=== PATIENT | female | born 1995 | race Caucasian/White ===

== ENCOUNTER 2019-05-08 13:10 | Emergency (ER) | payer MEDICAID, SELFPAY ==
--- NOTE | ~2019-05-08 | XR_ITS ---
EXAMINATION: XR lumbar spine 2-3V DATE: 05/08/2019 14:39 INDICATION: Low back pain TECHNIQUE: Anteroposterior and lateral views of the lumbar spine, and cone-down lateral view of the l umbosacral junction were obtained. COMPARISON: 12/13/2012 FINDINGS: There is mild thoracolumbar dextrocurvature. No fracture, dislocation, or subluxation is id entified. The vertebral body heights and intervertebral disc spaces are normal. Cholecystectomy clips are noted in the right upper quadrant. The bowel gas pattern is normal. IMPRESSION: 1. No acute abnormality of the lumbar spine. Reviewed, dictated and finalized at location B.
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
[2019-05-08 13:08] VITALS: BP 120/91; PULSE 102; RESP 18; TEMP 36.4; O2SAT 100
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
[2019-05-08] MEDS: IBUPROFEN 600 MG TABLET PO (13:59)
[2019-05-08 14:34] VITALS: BP 116/80; PULSE 73; RESP 16; O2SAT 100
[2019-05-08 15:51] VITALS: BP 119/75; PULSE 71; RESP 16; O2SAT 99
== END 2019-05-08 15:50 | disposition home or self-care (01) ==
PROVIDERS: Emergency Provider Emergency Medicine; PCP Family Medicine Sports Medicine
DX: S39.92XA Unspecified injury of lower back, initial encounter (principal); S19.9XXA Unspecified injury of neck, initial encounter; V43.52XA Car driver injured in collision with other type car in traffic accident, initial encounter
CPT/HCPCS: 72100; 72125; 99284; A9270

== ENCOUNTER 2019-06-30 15:41 | Emergency (ER) | payer OTHER, SELFPAY ==
--- NOTE | ~2019-06-30 | XR_ITS ---
EXAMINATION: XR wrist LT min 3V DATE: 06/30/2019 15:59 INDICATION: Left wrist pain TECHNIQUE: Posteroanterior, ulnar deviation, oblique, and lateral views of the left wrist were obtain ed. COMPARISON: None available FINDINGS: There is no fracture, dislocation, or subluxation. The bones, soft tissues, and joint space s are normal. IMPRESSION: 1. No acute osseous abnormality. Reviewed, dictated and finalized at location A.
--- NOTE | ~2019-06-30 | XR_ITS ---
EXAMINATION: XR hand LT min 3V DATE: 06/30/2019 15:59 INDICATION: Left hand pain TECHNIQUE: Posteroanterior, lateral, and oblique views of the left hand were obtained. COMPARISON: None. FINDINGS: There is no fracture, dislocation, or subluxation. The bones, soft tissues, and joint space s are normal. IMPRESSION: 1. No acute osseous abnormality. Reviewed, dictated and finalized at location A.
[2019-06-30 15:44] VITALS: BP 127/79; PULSE 123; RESP 16; TEMP 36.8; O2SAT 100
--- NOTE | 2019-06-30 16:04 | ED.GENADULT ---
HPI - General Adult General Chief complaint: Extremity Injury, Upper <LUCY Hickman Last Filed: 06/30/19 16:13> Stated complaint: Left Hand Injury <LUCY Hickman Last Filed: 06/30/19 16:13> Time Seen by Provider: 06/30/19 15:43 <LUCY Hickman Last Filed: 06/30/19 16:13> Source: patient <LUCY Hickman Last Filed: 06/30/19 16:13> Mode of arrival: ambulatory <LUCY Hickman Last Filed: 06/30/19 16:13> Limitations: no limitations <LUCY Hickman Last Filed: 06/30/19 16:13> History of Present Illness HPI narrative: Patient is a 24-year-old female who presents with left hand pain wrist pain after punching an object just prior to arrival patient became frustrated punched a wall since has had bruising aching pain along the ulnar aspect of the left hand wrist worse with activity movement is not anything for pain presents per private vehicle. <LUCY Hickman Last Filed: 06/30/19 16:13> Related Data Home medications: Home Medications Medication Instructions Recorded Confirmed No Home Medications 05/08/19 05/08/19 <LUCY Hickman Last Filed: 06/30/19 16:13> Allergies/adverse reactions: Allergies Allergy/AdvReac Type Severity Reaction Status Date / Time azithromycin Allergy Severe N/V; HIVES Verified 06/30/19 15:49 lavender (Lavandula Allergy Severe HIVES Verified 06/30/19 15:49 angustifolia) oxycodone Allergy Severe HIVES Verified 06/30/19 15:49 pumpkin Allergy Severe HIVES Verified 06/30/19 15:49 benzocaine AdvReac Mild VAGINAL Verified 06/30/19 15:49 ITCHING/REDNESS mineral oil AdvReac Mild VAGINAL Verified 06/30/19 15:49 ITCHING/REDNESS resorcinol AdvReac Mild VAGINAL Verified 06/30/19 15:49 REDNESS/ITCHING trazodone AdvReac Unknown GROSS Verified 06/30/19 15:49 DIAL SOAP Allergy Severe HIVES. Uncoded 05/08/19 13:14 STARCH AdvReac Mild VAGINAL Uncoded 05/08/19 13:14 ITCHING/REDNESS VITAMIN E ACETATE AdvReac Mild VAGINAL Uncoded 08/07/18 20:31 REDNESS/ITCHING VITAMINS A AND D AdvReac Mild VAGINAL Uncoded 08/07/18 20:31 ITCHING/REDNESS <Reji Velasquez PA-C - Last Filed: 06/30/19 16:13> Review of Systems Review of Systems: Narrative: CONSTITUTIONAL: Denies chills, or sweats. SKIN: Positive for bruising and swelling MUSCULOSKELETAL: Positive for left hand pain and bruising NEUROLOGIC: Denies numbness tingling PSYCHIATRIC: Denies anxiety or depression. <Reji Velasquez PA-C - Last Filed: 06/30/19 16:13> PMFSH Past Medical History Medical History: Medical History Abnormal uterine bleeding Anxiety History of ovarian cyst Scoliosis <Reji Velasquez PA-C - Last Filed: 06/30/19 16:13> Surgical History Surgical History: Surgical History History of cholecystectomy History of hysterectomy History of removal of ovarian cyst History of tonsillectomy and adenoidectomy Hx of toe surgery Rt great toe. <Reji Velasquez PA-C - Last Filed: 06/30/19 16:13> Social History Social History: Social History Smoking status: Current every day smoker Tobacco type: e-cigarettes/vaping <Reji Velasquez PA-C - Last Filed: 06/30/19 16:13> Exam Narrative: Exam Narrative: GENERAL: Well-appearing, well-nourished, and in no acute distress. HEAD: Normocephalic, atraumatic. EYES: PERRLA and EOMI. ENT: Nares clear, no rhinorrhea or epistaxis. Mucous membranes moist. EXTREMITIES: Bruising swelling and tenderness along the ulnar aspect of the left hand from the MCP joint to the proximal metacarpal with tenderness of the wrist with no deformity noted SKIN: Warm, dry, no rash. NEURO: No focal deficits. Alert and oriented x3. Neurovascularly intact. Capillary refill less than 2
[2019-06-30] MEDS: ACETAMINOPHEN 325 MG TABLET 650 MG PO (16:25)
== END 2019-06-30 16:30 | disposition home or self-care (01) ==
PROVIDERS: Emergency Provider Emergency Medicine; PCP Family Medicine Sports Medicine
DX: S60.222A Contusion of left hand, initial encounter (principal); W22.09XA Striking against other stationary object, initial encounter
CPT/HCPCS: 73110; 73130; 99283; A9270

== ENCOUNTER 2019-08-28 12:16 | Emergency (ER) | payer OTHER, SELFPAY ==
--- NOTE | ~2019-08-28 | XR_ITS ---
EXAMINATION: XR knee RT min 4V DATE: 08/28/2019 12:46 INDICATION: Fall with right knee pain and patellar bruising TECHNIQUE: Anteroposterior, 2 oblique and crosstable lateral views of the right knee were obtained COMPARISON: None. FINDINGS: Alignment is normal. No fracture. No joint effusion/layering lipohemarthrosis. Soft tissues are unrem arkable. IMPRESSION: 1. Negative right knee radiographs. Reviewed, dictated and finalized at location A.
[2019-08-28 12:24] VITALS: BP 115/63; PULSE 110; RESP 17; TEMP 37.1; O2SAT 99
--- NOTE | 2019-08-28 13:11 | ED.LOWEXIN ---
HPI - Extremity Injury (Lower) General Chief Complaint: Extremity Injury, Lower Stated Complaint: knee injury Time Seen by Provider: 08/28/19 12:52 Source: patient Mode of arrival: wheelchair Limitations: no limitations History of Present Illness HPI Narrative: This is a 34-year-old female that presents to the emergency department for right knee pain after an injury yesterday. Reports that she was trying to climb on a counter and slipped and her right kneecap hit the countertop. Reports since she has had pain and bruising to the kneecap. Reports the pain makes it difficult for her to ambulate. She has taken [id number] pain medicine with little relief. Denies hitting her head, loss of consciousness, other injuries, decreased range of motion or numbness. Related Data Allergies Allergy/AdvReac Type Severity Reaction Status Date / Time azithromycin Allergy Severe N/V; HIVES Verified 06/30/19 15:49 lavender (Lavandula Allergy Severe HIVES Verified 06/30/19 15:49 angustifolia) oxycodone Allergy Severe HIVES Verified 06/30/19 15:49 pumpkin Allergy Severe HIVES Verified 06/30/19 15:49 benzocaine AdvReac Mild VAGINAL Verified 06/30/19 15:49 ITCHING/REDNESS mineral oil AdvReac Mild VAGINAL Verified 06/30/19 15:49 ITCHING/REDNESS resorcinol AdvReac Mild VAGINAL Verified 06/30/19 15:49 REDNESS/ITCHING trazodone AdvReac Unknown GROSS Verified 06/30/19 15:49 DIAL SOAP Allergy Severe HIVES. Uncoded 05/08/19 13:14 STARCH AdvReac Mild VAGINAL Uncoded 05/08/19 13:14 ITCHING/REDNESS VITAMIN E ACETATE AdvReac Mild VAGINAL Uncoded 08/07/18 20:31 REDNESS/ITCHING VITAMINS A AND D AdvReac Mild VAGINAL Uncoded 08/07/18 20:31 ITCHING/REDNESS Review of Systems Review of Systems: Narrative: CONSTITUTIONAL: Denies fever MUSCULOSKELETAL: Reports joint pain, and myalgia. NEUROLOGIC: Denies numbness, or weakness. All systems reviewed & are unremarkable except as noted in HPI and below PMFSH Social History Social History Smoking status: Current every day smoker Tobacco type: e-cigarettes/vaping Gender identity (if verbalized by the patient): Female Exam Narrative: Exam Narrative: GENERAL: Well-appearing, well-nourished, and in no acute distress. HEAD: Normocephalic, atraumatic. EYES: EOMI. EXTREMITIES: Normal range of motion. No edema or obvious deformity. Small bruise over the right patella. Normal sensation. Normal DP pulses SKIN: Warm, dry, no rash. NEURO: No focal deficits. Alert and oriented x3. PSYCH: Normal mood and affect Course Vital Signs Vital signs: Vital Signs Temperature 98.8 F 08/28/19 12:24 Pulse Rate 110 H 08/28/19 12:24 Respiratory Rate 17 08/28/19 12:24 Blood Pressure 115/63 08/28/19 12:24 Pulse Oximetry 99 08/28/19 12:24 Temperature 98.8 F 08/28/19 12:24 Pulse Rate 110 H 08/28/19 12:24 Respiratory Rate 17 08/28/19 12:24 Blood Pressure 115/63 08/28/19 12:24 Pulse Oximetry 99 08/28/19 12:24 MDM - Extremity Injury (Lower) MDM Narrative Medical decision making narrative: Patient presents to the emergency department for right knee pain after an injury yesterday. Right knee x-rays without acute findings. Patient was instructed to rest, ice and take pain medication as needed. She is to follow-up with primary care doctor. She was given warnings to return to the ER Imaging Data Radiologist's impression: ITS Impressions Knee X-Ray 08/28/19 12:46 IMPRESSION: 1. Negative right knee radiographs. Critical Care Time Critical Care Time Critical Care Time: No Discharge Plan Discharge Clinical Impression: Acute pain of right knee Patient Disposition: Home, Self-Care Condition: Stable Instructions: Knee Pain (ED) Additional Instructions: Return to the emergency department if you experience fever, redness and swelling of your leg, or any other symptoms that
[2019-08-28 13:38] VITALS: BP 132/80; PULSE 80; RESP 18; TEMP 36.7; O2SAT 98
== END 2019-08-28 13:39 | disposition home or self-care (01) ==
PROVIDERS: Emergency Provider Emergency Medicine; PCP Family Medicine Sports Medicine
DX: M25.561 Pain in right knee (principal)
CPT/HCPCS: 73564; 99283

== ENCOUNTER 2019-12-17 17:33 | Emergency (ER) | payer OTHER, SELFPAY ==
--- NOTE | ~2019-12-17 | XR_ITS ---
EXAMINATION: XR chest 1V portable 12/17/2019 18:05 INDICATION: Shortness of breath and chest pressure. PROCEDURE: AP portable chest COMPARISON: Comparison to multiple prior studies sequentially, with oldest reviewed study dated 09/05. FINDINGS: The lungs are clear. Lung apices are excluded limiting evaluation for subtle pneumothorax. The lungs are hyperinflated which is consistent with, but not diagnostic of chronic obstructive pulmo nary disease. The cardiomediastinal silhouette is within normal limits. There are no pleural effusi ons. There is no pneumothorax suspected. IMPRESSION: 1: NO ACUTE CARDIOPULMONARY DISEASE. Reviewed, dictated and finalized at location A. O MANAGER
--- NOTE | 2019-12-17 17:47 | ECG_ITS ---
Measurements Intervals [place] Rate: 59 P: 62 VT: 122 QRS: 21 QRSD: 89 T: 77 QT: 416 QTc: 413 Interpretive Statements SINUS BRADYCARDIA BASELINE ARTIFACT- I, II, III, AVR, AVL,A VF BORDERLINE ECG Electronically Signed On 12-18-2019 10:21:33 CALL CENTER RN by aDsh Manzano D.O.
[2019-12-17 17:50] VITALS: BP 116/85; PULSE 58; RESP 14; TEMP 36.9; O2SAT 100
[2019-12-17 17:53] VITALS: PULSE 58; O2SAT 100
--- NOTE | 2019-12-17 18:09 | ED.GENADULT ---
HPI - General Adult General Chief complaint: Shortness of Breath/Dyspnea Stated complaint: sob/headache, COVID + Time Seen by Provider: 12/17/19 17:39 Source: patient Mode of arrival: ambulatory Limitations: no limitations History of Present Illness HPI narrative: Patient is a 24-year-old female who presents with positive Covid has been sick for the last several days multiple family members who are also sick patient notes headache and congestion rhinorrhea notes minimally productive cough that began today denies vomiting diarrhea has not taken anything for her symptoms and on arrival is in the room in no distress Related Data Allergies Allergy/AdvReac Type Severity Reaction Status Date / Time azithromycin Allergy Severe N/V; HIVES Verified 12/17/19 17:50 lavender (Lavandula Allergy Severe HIVES Verified 12/17/19 17:50 angustifolia) oxycodone Allergy Severe HIVES Verified 12/17/19 17:50 pumpkin Allergy Severe HIVES Verified 12/17/19 17:50 benzocaine AdvReac Mild VAGINAL Verified 12/17/19 17:50 ITCHING/REDNESS mineral oil AdvReac Mild VAGINAL Verified 12/17/19 17:50 ITCHING/REDNESS resorcinol AdvReac Mild VAGINAL Verified 12/17/19 17:50 REDNESS/ITCHING trazodone AdvReac Unknown GROSS Verified 12/17/19 17:50 DIAL SOAP Allergy Severe HIVES. Uncoded 05/08/19 13:14 STARCH AdvReac Mild VAGINAL Uncoded 05/08/19 13:14 ITCHING/REDNESS VITAMIN E ACETATE AdvReac Mild VAGINAL Uncoded 08/07/18 20:31 REDNESS/ITCHING VITAMINS A AND D AdvReac Mild VAGINAL Uncoded 08/07/18 20:31 ITCHING/REDNESS Review of Systems Review of Systems: All systems reviewed & are unremarkable except as noted in HPI and below PMFSH Past Medical History Medical History (Updated 12/17/19 @ 18:35 by Reji Velasquez PA-C) Abnormal uterine bleeding Anxiety History of ovarian cyst Scoliosis Surgical History Surgical History History of cholecystectomy History of hysterectomy History of removal of ovarian cyst History of tonsillectomy and adenoidectomy Hx of toe surgery Rt great toe. Social History Social History Smoking status: Current every day smoker Tobacco type: e-cigarettes/vaping Gender identity (if verbalized by the patient): Female Exam Narrative: Exam Narrative: GENERAL: Ill-appearing, well-nourished, and in no acute distress. HEAD: Normocephalic, atraumatic. EYES: PERRLA and EOMI. ENT: Nares clear, no rhinorrhea or epistaxis. Mucous membranes moist. NECK: Supple. No adenopathy or masses. CHEST: Clear to auscultation. No respiratory distress. No wheezes rales or rhonchi HEART: Regular rate and rhythm. No murmur heard. SKIN: Warm, dry, no rash. NEURO: No focal deficits. Alert and oriented x3. PSYCH: Normal mood and affect. Course Course Emergency Course: Patient in the room in no distress normal vital signs will be discharged home no pneumonia treated symptomatically advised to follow with primary care given reasons to return Vital Signs Vital signs: Vital Signs Temperature 98.5 F 12/17/19 17:50 Pulse Rate 58 L 12/17/19 17:50 Respiratory Rate 14 12/17/19 17:50 Blood Pressure 116/85 12/17/19 17:50 Pulse Oximetry 100 12/17/19 17:50 Temperature 98.5 F 12/17/19 17:50 Pulse Rate 58 L 12/17/19 17:53 Respiratory Rate 14 12/17/19 17:50 Blood Pressure 116/85 12/17/19 17:50 Pulse Oximetry 100 12/17/19 17:53 Medical Decision Making MDM Narrative Medical decision making narrative: Patient with COVID-19 in the room no distress normal vital signs no pneumonia felt appropriate for discharge home Vital Signs Vital Signs: Vital Signs Temperature 98.5 F 12/17/19 17:50 Pulse Rate 58 L 12/17/19 17:50 Respiratory Rate 14 12/17/19 17:50 Blood Pressure 116/85 12/17/19 17:50 Pulse Oximetry 100 12/17/19 17:50 Temperature 98.5 F 12/17/19 17:5
[2019-12-17 19:12] VITALS: BP 111/65; PULSE 58; RESP 19; O2SAT 100
== END 2019-12-17 19:32 | disposition home or self-care (01) ==
PROVIDERS: Emergency Provider Emergency Medicine; PCP Family Medicine Sports Medicine
DX: U07.1 COVID-19 (principal); F17.290 Nicotine dependence, other tobacco product, uncomplicated; R00.1 Bradycardia, unspecified
CPT/HCPCS: 71045; 93005; 99283

== ENCOUNTER 2020-04-07 10:06 | Emergency (ER) | payer OTHER, SELFPAY ==
--- NOTE | 2020-04-07 10:19 | ED.FEMALEGU ---
HPI - Female Genitourinary General Chief complaint: Urogenital-Female Stated complaint: UTI Time Seen by Provider: 04/07/20 10:28 Source: patient and RN notes reviewed Mode of arrival: ambulatory Limitations: no limitations History of Present Illness HPI Narrative: 24-year-old female presents with concern for possible urinary tract infection. Reports 1 day history of burning with urination, urine urgency. Reports right hip and low back pain. Denies known injury. Denies abdominal pain, nausea, vomiting, fever, hematuria, urine frequency. Reports vaginal irritation, reports recently started using scented toilet paper. Denies abnormal vaginal discharge or bleeding, pain with sex. Reports history of urinary tract infections MD elicited complaint: UTI Related Data Allergies Allergy/AdvReac Type Severity Reaction Status Date / Time azithromycin Allergy Severe N/V; HIVES Verified 12/17/19 17:50 lavender (Lavandula Allergy Severe HIVES Verified 12/17/19 17:50 angustifolia) oxycodone Allergy Severe HIVES Verified 12/17/19 17:50 pumpkin Allergy Severe HIVES Verified 12/17/19 17:50 benzocaine AdvReac Mild VAGINAL Verified 12/17/19 17:50 ITCHING/REDNESS mineral oil AdvReac Mild VAGINAL Verified 12/17/19 17:50 ITCHING/REDNESS resorcinol AdvReac Mild VAGINAL Verified 12/17/19 17:50 REDNESS/ITCHING trazodone AdvReac Unknown GROSS Verified 12/17/19 17:50 DIAL SOAP Allergy Severe HIVES. Uncoded 05/08/19 13:14 STARCH AdvReac Mild VAGINAL Uncoded 05/08/19 13:14 ITCHING/REDNESS VITAMIN E ACETATE AdvReac Mild VAGINAL Uncoded 08/07/18 20:31 REDNESS/ITCHING VITAMINS A AND D AdvReac Mild VAGINAL Uncoded 08/07/18 20:31 ITCHING/REDNESS Review of Systems Review of Systems: Narrative: CONSTITUTIONAL: Denies malaise, chills, sweats, or fever. CARDIOVASCULAR: Denies chest pain, palpitations, or edema. RESPIRATORY: Denies cough or dyspnea. GASTROINTESTINAL: Denies abdominal pain, nausea, vomiting, diarrhea, bloody, or mucous stools. GENITOURINARY: Reports dysuria, urgency. Denies frequency, hematuria, abnormal vaginal discharge or bleeding. SKIN: Reports vaginal irritation MUSCULOSKELETAL: Reports right low back pain and hip pain. Denies myalgia. All systems reviewed & are unremarkable except as noted in HPI and below PMFSH Past Medical History Medical History (Updated 04/07/20 @ 10:36 by Yani Muse NP) Abnormal uterine bleeding Anxiety History of ovarian cyst Scoliosis Surgical History Surgical History History of cholecystectomy History of hysterectomy History of removal of ovarian cyst History of tonsillectomy and adenoidectomy Hx of toe surgery Rt great toe. Social History Social History Smoking status: Current every day smoker Tobacco type: e-cigarettes/vaping Gender identity (if verbalized by the patient): Female Comments At time of signature, agree with nursing past medical, surgical, social and family history. There is no relevant family history pertinent to the presenting complaint Exam Narrative: Exam Narrative: GENERAL: Well-appearing, well-nourished, and in no acute distress. HEAD: Normocephalic. EYES: PERRLA, conjunctivae clear. NECK: Supple. No lymphadenopathy CHEST: Clear to auscultation. No respiratory distress. HEART: Regular rate and rhythm. ABDOMEN: Soft, nontender upon palpation, nondistended, normal active bowel sounds, no palpable or pulsatile masses, no guarding. No CVA tenderness Musculoskeletal: Right hip tenderness, normal range of motion, no hip pain with abduction, abduction, flexion, extension. Normal gait. No midline back tenderness. Equal strength with hip flexion. SKIN: Warm, dry, no rash. NEURO: Alert and oriented x3. PSYCH: Normal mood and affect Course Course Emergency Course: Patient is aware of diagnosis, understands and agrees to treatmen
[2020-04-07 10:23] VITALS: BP 110/74; PULSE 95; RESP 16; TEMP 36.7; O2SAT 100
== END 2020-04-07 10:50 | disposition home or self-care (01) ==
PROVIDERS: Emergency Provider Nurse Practitioner
DX: N89.8 Other specified noninflammatory disorders of vagina (principal); M25.551 Pain in right hip; F17.200 Nicotine dependence, unspecified, uncomplicated
CPT/HCPCS: 81003; 87086; 99213; G0463

== ENCOUNTER 2020-06-09 10:21 | Emergency (ER) | payer OTHER, SELFPAY ==
--- NOTE | 2020-06-09 10:40 | ED.DENTAL ---
HPI - Dental/Oral General Chief complaint: Dental/Oral Stated complaint: tooth pain Time Seen by Provider: 06/09/20 10:40 Source: patient Mode of arrival: ambulatory Limitations: no limitations History of Present Illness HPI Narrative: Angeli Cunningham is a 24 yo female with no PMH although is very thin -who comes for dental pain and right lower wisdom tooth. Pain has been going on for 2 weeks and gradually worsening she has an appointment with an oral surgeon on June 26. Patient has long allergy list which does not include penicillin Related Data Allergies Allergy/AdvReac Type Severity Reaction Status Date / Time azithromycin Allergy Severe N/V; HIVES Verified 12/17/19 17:50 lavender (Lavandula Allergy Severe HIVES Verified 12/17/19 17:50 angustifolia) oxycodone Allergy Severe HIVES Verified 12/17/19 17:50 pumpkin Allergy Severe HIVES Verified 12/17/19 17:50 benzocaine AdvReac Mild VAGINAL Verified 12/17/19 17:50 ITCHING/REDNESS mineral oil AdvReac Mild VAGINAL Verified 12/17/19 17:50 ITCHING/REDNESS resorcinol AdvReac Mild VAGINAL Verified 12/17/19 17:50 REDNESS/ITCHING trazodone AdvReac Unknown GROSS Verified 12/17/19 17:50 DIAL SOAP Allergy Severe HIVES. Uncoded 05/08/19 13:14 STARCH AdvReac Mild VAGINAL Uncoded 05/08/19 13:14 ITCHING/REDNESS VITAMIN E ACETATE AdvReac Mild VAGINAL Uncoded 08/07/18 20:31 REDNESS/ITCHING VITAMINS A AND D AdvReac Mild VAGINAL Uncoded 08/07/18 20:31 ITCHING/REDNESS Review of Systems Review of Systems: Narrative: CONSTITUTIONAL: Denies fever, chills, sweats. EYES: Denies visual changes, redness, discharge. ENT: Denies rhinorrhea, congestion, sore throat, otalgia. Has dental pain on right lower wisdom tooth CARDIOVASCULAR: Denies chest pain, palpitations, edema. RESPIRATORY: Denies dyspnea, wheezing, cough GASTROINTESTINAL: Denies abdominal pain, nausea, vomiting, diarrhea. GENITOURINARY: Denies dysuria, hematuria, abnormal discharge SKIN: Denies rash or itching. NEUROLOGIC: Denies numbness, or focal weakness. PSYCHIATRIC: Denies anxiety or depression. PMFSH Past Medical History Medical History Abnormal uterine bleeding Anxiety History of ovarian cyst Low body mass index (BMI) Scoliosis Surgical History Surgical History History of cholecystectomy History of hysterectomy History of removal of ovarian cyst History of tonsillectomy and adenoidectomy Hx of toe surgery Rt great toe. Family History Family History (Updated 06/09/20 @ 10:44 by Mireya Chou CNP) Other Diabetes mellitus Hypertension Social History Social History Smoking status: Current every day smoker Tobacco type: e-cigarettes/vaping Gender identity (if verbalized by the patient): Female Comments At time of signature, I agree with nursing past medical, surgical, social and family history. There is no relevant family history pertinent to the presenting complaint. Exam Narrative: Exam Narrative: GENERAL: This is a well-nourished, well-developed patient, in mild distress. HEAD: normocephalic, atraumatic. EYES: PERRL. Sclera clear/white. Vision is grossly intact. EARS: External ears normal, auditory canals clear and without drainage, TMs normal without perforation. Hearing grossly intact. NOSE: External nose normal without nasal discharge, nares without redness, no rhinorrhea. THROAT: Mucous membranes moist, has right lower wisdom tooth pain with swelling of tissue around area over tooth and ulceration right behind tooth that extends into the cheek NECK: Neck supple, CARDIOVASCULAR: Regular rate and rhythm without murmurs, gallops, or rubs. RESPIRATORY: Clear to auscultation. Breath sounds equal bilaterally. No wheezes, rales, or rhonchi. GASTROINTESTINAL: Abdomen soft, SKIN: warm, intact with no suspiciou
[2020-06-09 10:48] VITALS: BP 102/69; PULSE 98; RESP 16; TEMP 36; O2SAT 100
== END 2020-06-09 10:55 | disposition home or self-care (01) ==
PROVIDERS: Emergency Provider Nurse Practitioner
DX: K08.89 Other specified disorders of teeth and supporting structures (principal); K04.7 Periapical abscess without sinus; F17.200 Nicotine dependence, unspecified, uncomplicated; M41.9 Scoliosis, unspecified
CPT/HCPCS: 99213; G0463

== ENCOUNTER 2020-11-16 10:40 | Outpatient (CLI) | payer OTHER, SELFPAY ==
--- NOTE | ~2020-11-16 | MR_ITS ---
EXAMINATION: MR hip LT wo con DATE: 11/16/2020 12:23 INDICATION: Left hip pain TECHNIQUE: Magnetic resonance imaging (MRI) of the left hip was performed without intravenous contra st. Sequences included full-field axial PD-weighted FS FSE and T1-weighted FSE, coronal of the pelvis with PD-weighted FS FSE, T2-weighted FSE and T1-weighted FSE, small field of view of the left hip w ith axial PD-weighted FS FSE, sagittal PD-weighted FS FSE, coronal PD-weighted FS FSE and coronal T2 weighted FSE. Additional radial T1-weighted FGR oriented orthogonal to the acetabular rim were obtai jil for evaluation of the labrum. COMPARISON: Pelvis and hip radiographs dated 10/03/2020 FINDINGS: Bones/labrum/cartilage: Mild lower lumbar levocurvature. Alignment is otherwise normal. No fracture, avascular necrosis or p athologic marrow replacing process. Labrum is normal. Articular cartilage is normal. Fluid: Symmetric physiologic amount of fluid within both hip joints. Soft tissues: Normal and symmetric muscle bulk and signal in the pelvis and visualized proximal thighs. The iliopso as, gluteal and proximal hamstring tendons are normal. The uterus is not identified and has likely be en surgically resected. 1.7 cm right adnexal cyst/follicle. Limited evaluation of visceral organs of the pelvis is otherwise unremarkable. No pathologically enlarged pelvic/inguinal lymphadenopathy. IMPRESSION: 1. Normal left hip. 2. Mild lower lumbar levocurvature. Reviewed, dictated and finalized at [facility].
== END 2020-11-16 10:41 | disposition home or self-care (01) ==
LOC: ANHIMG 11:01
PROVIDERS: PCP Family Medicine; Visit Provider Orthopaedic Surgery
DX: M25.552 Pain in left hip (principal)
CPT/HCPCS: 73721

== ENCOUNTER 2021-03-08 18:28 | Emergency (ER) | payer OTHER, SELFPAY ==
[2021-03-08 18:44] VITALS: BP 94/62; PULSE 76; RESP 18; TEMP 36.2; O2SAT 99
--- NOTE | 2021-03-08 18:49 | ED.FEMALEGU ---
HPI - Female Genitourinary General Chief complaint: Urogenital-Female Stated complaint: UTI Time Seen by Provider: 03/08/21 18:49 Source: patient, RN notes reviewed and old records reviewed Mode of arrival: ambulatory Limitations: no limitations History of Present Illness HPI Narrative: 25-year-old female presents to the [facility] with complaints of urgency, frequency and burning since this morning. History of UTIs. Denies any chance of STD or , history of hysterectomy MD elicited complaint: UTI Related Data Home Medications Medication Instructions Recorded Confirmed fluoxetine 20 mg capsule 20 mg PO DAILY 10/03/20 03/08/21 hydroxyzine HCl 25 mg tablet 25 mg PO BID 10/03/20 03/08/21 ibuprofen 600 mg PO TID 03/08/21 03/08/21 Allergies Allergy/AdvReac Type Severity Reaction Status Date / Time azithromycin Allergy Severe N/V; HIVES Verified 03/08/21 18:51 lavender (Lavandula Allergy Severe HIVES Verified 03/08/21 18:51 angustifolia) oxycodone Allergy Severe HIVES Verified 03/08/21 18:51 pumpkin Allergy Severe HIVES Verified 03/08/21 18:51 benzocaine AdvReac Mild VAGINAL Verified 03/08/21 18:51 ITCHING/REDNESS mineral oil AdvReac Mild VAGINAL Verified 03/08/21 18:51 ITCHING/REDNESS resorcinol AdvReac Mild VAGINAL Verified 03/08/21 18:51 REDNESS/ITCHING trazodone AdvReac Unknown GROSS Verified 03/08/21 18:51 DIAL SOAP Allergy Severe HIVES. Uncoded 03/08/21 18:51 STARCH AdvReac Mild VAGINAL Uncoded 03/08/21 18:51 ITCHING/REDNESS VITAMIN E ACETATE AdvReac Mild VAGINAL Uncoded 03/08/21 18:51 REDNESS/ITCHING VITAMINS A AND D AdvReac Mild VAGINAL Uncoded 03/08/21 18:51 ITCHING/REDNESS Review of Systems Review of Systems: All systems reviewed & are unremarkable except as noted in HPI and below Constitutional: Constitutional: Reports no additional constitutional complaints, Denies chills and Denies fatigue Eyes: Eyes: Reports no additional eye complaints ENT: Reports system reviewed and no additional complaints, except as documented Cardiovascular: Cardiovascular: Reports no additional cardiovascular complaints and Denies chest pain Respiratory: Respiratory: Reports no additional respiratory complaints, Denies cough, Denies dyspnea and Denies wheezing Gastrointestinal: Gastrointestinal: Reports no additional gastrointestinal complaints, Denies abdominal pain, Denies diarrhea, Denies nausea and Denies vomiting Genitourinary: Genitourinary: Reports as per HPI, Denies hematuria, Reports nocturia, Denies genital lesions, Reports dysuria, Denies pelvic pain, Denies flank pain and Denies vaginal discharge Musculoskeletal: Musculoskeletal: Reports no additional musculoskeletal complaints and Denies back pain Integumentary/Breasts: Skin/Breast: Reports system reviewed and no additional complaints, except as docu Neurologic: Reports system reviewed and no additional complaints, except as documented Psychiatric: Psychiatric: Reports no additional psychiatric complaints Endocrine: Endocrine: Denies fatigue Allergic/Immunologic: Allergic/Immunologic: Reports no additional allergic/immunologic complaints [facility] Past Medical History Medical History Abnormal uterine bleeding Anxiety Chronic headache History of anxiety History of depression History of ear pain History of ovarian cyst IBS (irritable bowel syndrome) Left hip pain Low body mass index (BMI) Pelvic pain Scoliosis Surgical History Surgical History History of cholecystectomy History of hysterectomy History of removal of ovarian cyst History of tonsillectomy and adenoidectomy Hx of toe surgery Rt great toe. Family History Family History Other Arthritis Depression Diabetes mellitus Heart disease Hypertension Kidney disorder Social History Social Hist
== END 2021-03-08 19:00 | disposition home or self-care (01) ==
PROVIDERS: Emergency Provider Nurse Practitioner; PCP Family Medicine
DX: N39.0 Urinary tract infection, site not specified (principal); F17.200 Nicotine dependence, unspecified, uncomplicated; F41.9 Anxiety disorder, unspecified; F32.A Depression, unspecified; M41.9 Scoliosis, unspecified
CPT/HCPCS: 81003; 87077; 87086; 87186; 99213; G0463

== ENCOUNTER 2021-05-01 18:49 | Emergency (ER) | payer OTHER, SELFPAY ==
[2021-05-01 18:53] VITALS: BP 102/64; PULSE 72; RESP 16; TEMP 36.3; O2SAT 99
--- NOTE | 2021-05-01 18:55 | ED.URI ---
HPI - URI/Sore Throat General Chief Complaint: Upper Respiratory Infection Stated Complaint: uri Time Seen by Provider: 05/01/21 18:58 Source: patient, RN notes reviewed and old records reviewed Mode of arrival: ambulatory Limitations: no limitations History of Present Illness HPI Narrative: 25-year-old female presents to the [facility] with 3 days of sinus congestion and drainage. Patient states that she has felt febrile. Has not had an actual fever. Denies taking any [id number] products to help with symptoms. Has just finished a round of Keflex that her doctor prescribed for a she stated her [employer] prescribed for a breast infection. MD elicited complaint: rhinorrhea and nasal congestion Related Data Home Medications Medication Instructions Recorded Confirmed fluoxetine 20 mg capsule 20 mg PO DAILY 10/03/20 03/08/21 Allergies Allergy/AdvReac Type Severity Reaction Status Date / Time azithromycin Allergy Severe N/V; HIVES Verified 03/08/21 18:51 lavender (Lavandula Allergy Severe HIVES Verified 03/08/21 18:51 angustifolia) oxycodone Allergy Severe HIVES Verified 03/08/21 18:51 pumpkin Allergy Severe HIVES Verified 03/08/21 18:51 benzocaine AdvReac Mild VAGINAL Verified 03/08/21 18:51 ITCHING/REDNESS mineral oil AdvReac Mild VAGINAL Verified 03/08/21 18:51 ITCHING/REDNESS resorcinol AdvReac Mild VAGINAL Verified 03/08/21 18:51 REDNESS/ITCHING trazodone AdvReac Unknown GROSS Verified 03/08/21 18:51 DIAL SOAP Allergy Severe HIVES. Uncoded 03/08/21 18:51 STARCH AdvReac Mild VAGINAL Uncoded 03/08/21 18:51 ITCHING/REDNESS VITAMIN E ACETATE AdvReac Mild VAGINAL Uncoded 03/08/21 18:51 REDNESS/ITCHING VITAMINS A AND D AdvReac Mild VAGINAL Uncoded 03/08/21 18:51 ITCHING/REDNESS Review of Systems Review of Systems: All systems reviewed & are unremarkable except as noted in HPI and below Constitutional: Constitutional: Reports no additional constitutional complaints, Denies chills, Denies fever(s) and Denies headache(s) Eyes: Eyes: Reports no additional eye complaints ENT: Reports as per HPI, Denies vertigo, Denies dizziness, Denies headache(s), Reports nasal congestion, Reports nasal discharge and Denies sore throat Cardiovascular: Cardiovascular: Reports no additional cardiovascular complaints, Denies chest pain, Denies syncope, Denies rapid heart rate and Denies dyspnea Respiratory: Respiratory: Reports no additional respiratory complaints, Denies cough, Denies dyspnea and Denies wheezing Gastrointestinal: Gastrointestinal: Reports no additional gastrointestinal complaints, Denies abdominal pain, Denies diarrhea, Denies nausea and Denies vomiting Musculoskeletal: Musculoskeletal: Reports no additional musculoskeletal complaints and Denies numbness Integumentary/Breasts: Skin/Breast: Reports system reviewed and no additional complaints, except as docu Neurologic: Reports system reviewed and no additional complaints, except as documented, Denies vertigo, Denies dizziness, Denies syncope, Denies headache(s), Denies focal weakness and Denies numbness Psychiatric: Psychiatric: Reports no additional psychiatric complaints Allergic/Immunologic: Allergic/Immunologic: Reports no additional allergic/immunologic complaints and Denies wheezing PMFSH Past Medical History Medical History Abnormal uterine bleeding Anxiety Chronic headache History of anxiety History of depression History of ear pain History of ovarian cyst IBS (irritable bowel syndrome) Left hip pain Low body mass index (BMI) Pelvic pain Scoliosis Surgical History Surgical History History of cholecystectomy History of hysterectomy History of removal of ovarian cyst History of tonsillectomy and adenoidectomy Hx of toe surgery Rt great toe. Family History Family History Othe
== END 2021-05-01 19:19 | disposition home or self-care (01) ==
PROVIDERS: Emergency Provider Nurse Practitioner
DX: J30.9 Allergic rhinitis, unspecified (principal); F17.290 Nicotine dependence, other tobacco product, uncomplicated; M41.9 Scoliosis, unspecified; F41.9 Anxiety disorder, unspecified; F32.A Depression, unspecified
CPT/HCPCS: 87804; 99213; G0463

== ENCOUNTER 2021-05-07 09:31 | Outpatient (CLI) | payer OTHER, SELFPAY ==
--- NOTE | ~2021-05-07 | US_ITS ---
US breast RT complete DATE: 05/07/2021 10:26 INDICATION: Right breast pain TECHNIQUE: Real-time imaging of the complete right breast including all 4 quadrants and subareolar ar ea COMPARISON: None FINDINGS: No suspicious mass, shadowing, cyst or other significant sonographic abnormality is noted. IMPRESSION: BI-RADS Category 1: Negative Recommendation: Routine mammographic screening beginning at age 40 Reviewed, dictated and finalized at [facility]. Reviewed, dictated and finalized at [facility].
== END 2021-05-07 09:32 | disposition home or self-care (01) ==
LOC: ANHIMG 09:35
PROVIDERS: PCP Family Medicine; Visit Provider Obstetrics & Gynecology
DX: N64.4 Mastodynia (principal)
CPT/HCPCS: 76641

== ENCOUNTER 2021-06-03 15:53 | Emergency (ER) | payer OTHER, SELFPAY ==
--- NOTE | 2021-06-03 15:56 | ED.UPPEXIN ---
HPI - Extremity Injury (Upper) General Chief Complaint: Extremity Injury, Upper Stated Complaint: right shoulder pain Time Seen by Provider: 06/03/21 16:01 Source: patient, family, RN notes reviewed and old records reviewed Mode of arrival: ambulatory Limitations: no limitations History of Present Illness HPI narrative: 25-year-old female presents to the [facility] with right posterior shoulder pain for the last 2 to 3 days. Patient states she woke up with it a couple of mornings ago. No treatment prior to arrival. Pain with range of motion. No trauma. No redness, swelling. No bruising. MD complaint: injury to: right and shoulder Other Extremity Injury: Right: shoulder Related Data Home Medications Medication Instructions Recorded Confirmed fluoxetine 20 mg capsule 20 mg PO DAILY 10/03/20 03/08/21 Allergies Allergy/AdvReac Type Severity Reaction Status Date / Time azithromycin Allergy Severe N/V; HIVES Verified 03/08/21 18:51 lavender (Lavandula Allergy Severe HIVES Verified 03/08/21 18:51 angustifolia) oxycodone Allergy Severe HIVES Verified 03/08/21 18:51 pumpkin Allergy Severe HIVES Verified 03/08/21 18:51 benzocaine AdvReac Mild VAGINAL Verified 03/08/21 18:51 ITCHING/REDNESS mineral oil AdvReac Mild VAGINAL Verified 03/08/21 18:51 ITCHING/REDNESS resorcinol AdvReac Mild VAGINAL Verified 03/08/21 18:51 REDNESS/ITCHING trazodone AdvReac Unknown GROSS Verified 03/08/21 18:51 DIAL SOAP Allergy Severe HIVES. Uncoded 03/08/21 18:51 STARCH AdvReac Mild VAGINAL Uncoded 03/08/21 18:51 ITCHING/REDNESS VITAMIN E ACETATE AdvReac Mild VAGINAL Uncoded 03/08/21 18:51 REDNESS/ITCHING VITAMINS A AND D AdvReac Mild VAGINAL Uncoded 03/08/21 18:51 ITCHING/REDNESS Review of Systems Review of Systems: All systems reviewed & are unremarkable except as noted in HPI and below Constitutional: Constitutional: Reports no additional constitutional complaints, Denies chills, Denies fever(s), Denies headache(s) and Denies weakness Eyes: Eyes: Reports no additional eye complaints ENT: Reports system reviewed and no additional complaints, except as documented, Denies vertigo, Denies dizziness and Denies headache(s) Cardiovascular: Cardiovascular: Reports no additional cardiovascular complaints, Denies chest pain, Denies syncope and Denies dyspnea Respiratory: Respiratory: Reports no additional respiratory complaints, Denies cough and Denies dyspnea Gastrointestinal: Gastrointestinal: Reports no additional gastrointestinal complaints, Denies abdominal pain, Denies nausea and Denies vomiting Musculoskeletal: Musculoskeletal: Reports as per HPI, Reports arthralgias (Posterior right shoulder), Denies joint swelling and Denies numbness Integumentary/Breasts: Skin/Breast: Reports system reviewed and no additional complaints, except as docu Neurologic: Reports system reviewed and no additional complaints, except as documented, Denies confusion, Denies vertigo, Denies dizziness, Denies syncope, Denies headache(s), Denies focal weakness, Denies numbness and Denies weakness Psychiatric: Psychiatric: Reports no additional psychiatric complaints and Denies confusion Allergic/Immunologic: Allergic/Immunologic: Reports no additional allergic/immunologic complaints PMFSH Past Medical History Medical History Abnormal uterine bleeding Anxiety Chronic headache History of anxiety History of depression History of ear pain History of ovarian cyst IBS (irritable bowel syndrome) Left hip pain Low body mass index (BMI) Pelvic pain Scoliosis Surgical History Surgical History History of cholecystectomy History of hysterectomy History of removal of ovarian cyst History of tonsillectomy and adenoidectomy Hx of toe surgery Rt great toe. Family History Family History (Reviewed 06/03/21 @ 19:56 by Yani Herman
[2021-06-03 16:01] VITALS: BP 114/77; PULSE 108; RESP 16; TEMP 37.3; O2SAT 99
[2021-06-03 16:02] VITALS: BP 114/77; PULSE 108; RESP 16; TEMP 37.3; O2SAT 99
== END 2021-06-03 16:12 | disposition home or self-care (01) ==
PROVIDERS: Emergency Provider Nurse Practitioner; PCP Family Medicine
DX: S46.911A Strain of unspecified muscle, fascia and tendon at shoulder and upper arm level, right arm, initial encounter (principal); X58.XXXA Exposure to other specified factors, initial encounter; F17.290 Nicotine dependence, other tobacco product, uncomplicated; M41.9 Scoliosis, unspecified; F41.9 Anxiety disorder, unspecified; F32.A Depression, unspecified
CPT/HCPCS: 99213; G0463

== ENCOUNTER 2021-12-09 10:08 | Emergency (ER) | payer OTHER, SELFPAY ==
--- NOTE | 2021-12-09 10:13 | ED.URI ---
HPI - URI/Sore Throat General Chief Complaint: Upper Respiratory Infection Stated Complaint: Fever, Sore Throat Time Seen by Provider: 12/09/21 10:19 Source: patient, RN notes reviewed and old records reviewed Mode of arrival: ambulatory Limitations: no limitations History of Present Illness HPI Narrative: 26-year-old female presents to the [facility] with complaints of fever and sore throat that started this morning. States that she woke up with 100.8 fever. Took some ibuprofen. 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 Reports that her son tested positive for influenza a last week. MD elicited complaint: fever and sore throat Related Data Home Medications Medication Instructions Recorded Confirmed venlafaxine 75 mg capsule,extended 75 mg PO DAILY 12/09/21 12/09/21 release 24 hr Allergies Allergy/AdvReac Type Severity Reaction Status Date / Time azithromycin Allergy Severe N/V; HIVES Verified 12/09/21 10:19 lavender (Lavandula Allergy Severe HIVES Verified 12/09/21 10:19 angustifolia) oxycodone Allergy Severe HIVES Verified 12/09/21 10:19 pumpkin Allergy Severe HIVES Verified 12/09/21 10:19 benzocaine AdvReac Mild VAGINAL Verified 12/09/21 10:19 ITCHING/REDNESS mineral oil AdvReac Mild VAGINAL Verified 12/09/21 10:19 ITCHING/REDNESS resorcinol AdvReac Mild VAGINAL Verified 12/09/21 10:19 REDNESS/ITCHING trazodone AdvReac Unknown GROSS Verified 12/09/21 10:19 DIAL SOAP Allergy Severe HIVES. Uncoded 12/09/21 10:19 STARCH AdvReac Mild VAGINAL Uncoded 12/09/21 10:19 ITCHING/REDNESS VITAMIN E ACETATE AdvReac Mild VAGINAL Uncoded 12/09/21 10:19 REDNESS/ITCHING VITAMINS A AND D AdvReac Mild VAGINAL Uncoded 12/09/21 10:19 ITCHING/REDNESS Review of Systems Review of Systems: All systems reviewed & are unremarkable except as noted in HPI and below Constitutional: Constitutional: Reports as per HPI, Denies chills, Reports fatigue and Reports fever(s) Eyes: Eyes: Reports no additional eye complaints ENT: Reports as per HPI and Reports sore throat Cardiovascular: Cardiovascular: Reports no additional cardiovascular complaints Respiratory: Respiratory: Reports no additional respiratory complaints Gastrointestinal: Gastrointestinal: Reports no additional gastrointestinal complaints Musculoskeletal: Musculoskeletal: Reports no additional musculoskeletal complaints Integumentary/Breasts: Skin/Breast: Reports system reviewed and no additional complaints, except as docu Neurologic: Reports system reviewed and no additional complaints, except as documented Psychiatric: Psychiatric: Reports no additional psychiatric complaints Allergic/Immunologic: Allergic/Immunologic: Reports no additional allergic/immunologic complaints [facility] Past Medical History Medical History Abnormal uterine bleeding Anxiety Chronic headache History of anxiety History of depression History of ear pain History of ovarian cyst IBS (irritable bowel syndrome) Left hip pain Low body mass index (BMI) Pelvic pain Scoliosis Surgical History Surgical History History of cholecystectomy History of hysterectomy History of removal of ovarian cyst History of tonsillectomy and adenoidectomy Hx of toe surgery Rt great toe. Family History Family History Other Arthritis Depression Diabetes mellitus Heart disease Hypertension Kidney disorder Social History Social History Tobacco type: e-cigarettes/vaping Alcohol intake: current Substance use: never Gender identity (if verbalized by the patient): Female Comments At the time of my signature, I reviewed and agree with the nursing past medical, surgical, social, and family history. There is no relevant
[2021-12-09 10:24] VITALS: BP 105/70; PULSE 101; RESP 16; TEMP 37.4; O2SAT 99
== END 2021-12-09 10:48 | disposition home or self-care (01) ==
PROVIDERS: Emergency Provider Nurse Practitioner; PCP Family Medicine
DX: J06.9 Acute upper respiratory infection, unspecified (principal); F17.290 Nicotine dependence, other tobacco product, uncomplicated; F41.9 Anxiety disorder, unspecified; F32.A Depression, unspecified; M41.9 Scoliosis, unspecified
CPT/HCPCS: 87804; 99213; G0463

== ENCOUNTER 2021-12-22 09:29 | Emergency (ER) | payer OTHER, SELFPAY ==
[2021-12-22 09:41] VITALS: BP 119/78; PULSE 98; RESP 18; TEMP 37.3; O2SAT 100
--- NOTE | 2021-12-22 10:12 | ED.FEMALEGU ---
HPI - Female Genitourinary General Chief complaint: Urogenital-Female Stated complaint: UTI,Abdominal Pain Time Seen by Provider: 12/22/21 10:12 Source: patient, RN notes reviewed and old records reviewed Mode of arrival: ambulatory Limitations: no limitations History of Present Illness HPI Narrative: 26-year-old female presents to the [facility] complaints of generalized abdominal pain worse in the lower quadrants since yesterday. Has history of a cholecystectomy and a hysterectomy. Denies taking any medications. Denies nausea or vomiting. Denies urinary symptoms, no frequency urgency or burning. Denies any diarrhea. MD elicited complaint: other (Generalized abdominal pain) Onset (ago): day(s) (1) Severity: moderate Possible : other (Hysterectomy) Related Data Home Medications Medication Instructions Recorded Confirmed venlafaxine 75 mg capsule,extended 75 mg PO DAILY 12/09/21 12/22/21 release 24 hr Allergies Allergy/AdvReac Type Severity Reaction Status Date / Time azithromycin Allergy Severe N/V; HIVES Verified 12/22/21 09:47 lavender (Lavandula Allergy Severe HIVES Verified 12/22/21 09:47 angustifolia) oxycodone Allergy Severe HIVES Verified 12/22/21 09:47 pumpkin Allergy Severe HIVES Verified 12/22/21 09:47 benzocaine AdvReac Mild VAGINAL Verified 12/22/21 09:47 ITCHING/REDNESS mineral oil AdvReac Mild VAGINAL Verified 12/22/21 09:47 ITCHING/REDNESS resorcinol AdvReac Mild VAGINAL Verified 12/22/21 09:47 REDNESS/ITCHING trazodone AdvReac Unknown GROSS Verified 12/22/21 09:47 DIAL SOAP Allergy Severe HIVES. Uncoded 12/22/21 09:47 STARCH AdvReac Mild VAGINAL Uncoded 12/22/21 09:47 ITCHING/REDNESS VITAMIN E ACETATE AdvReac Mild VAGINAL Uncoded 12/22/21 09:47 REDNESS/ITCHING VITAMINS A AND D AdvReac Mild VAGINAL Uncoded 12/22/21 09:47 ITCHING/REDNESS Review of Systems Review of Systems: All systems reviewed & are unremarkable except as noted in HPI and below Constitutional: Constitutional: Reports no additional constitutional complaints, Denies chills and Denies fatigue Eyes: Eyes: Reports no additional eye complaints ENT: Reports system reviewed and no additional complaints, except as documented Cardiovascular: Cardiovascular: Reports no additional cardiovascular complaints Respiratory: Respiratory: Reports no additional respiratory complaints Gastrointestinal: Gastrointestinal: Reports as per HPI, Reports abdominal pain, Denies diarrhea, Denies nausea and Denies vomiting Genitourinary: Genitourinary: Reports as per HPI, Denies hematuria, Denies nocturia, Denies dysuria, Reports flank pain (Bilateral radiating into her abdomen) and Denies vaginal discharge Musculoskeletal: Musculoskeletal: Reports no additional musculoskeletal complaints and Denies back pain Integumentary/Breasts: Skin/Breast: Reports system reviewed and no additional complaints, except as docu Neurologic: Reports system reviewed and no additional complaints, except as documented Psychiatric: Psychiatric: Reports no additional psychiatric complaints Endocrine: Endocrine: Denies fatigue Allergic/Immunologic: Allergic/Immunologic: Reports no additional allergic/immunologic complaints PMFSH Past Medical History Medical History Abnormal uterine bleeding Anxiety Chronic headache History of anxiety History of depression History of ear pain History of ovarian cyst IBS (irritable bowel syndrome) Left hip pain Low body mass index (BMI) Pelvic pain Scoliosis Surgical History Surgical History History of cholecystectomy History of hysterectomy History of removal of ovarian cyst History of tonsillectomy and adenoidectomy Hx of toe surgery Rt great toe. Family History Family History Other Arthritis Depression Diabetes me
== END 2021-12-22 10:34 | disposition short-term general hospital (02) ==
PROVIDERS: Emergency Provider Nurse Practitioner; PCP Family Medicine
DX: R10.84 Generalized abdominal pain (principal); F41.9 Anxiety disorder, unspecified; F32.A Depression, unspecified; M41.9 Scoliosis, unspecified; F17.290 Nicotine dependence, other tobacco product, uncomplicated
CPT/HCPCS: 81003; 99212; G0463

== ENCOUNTER 2021-12-22 10:53 | Emergency (ER) | payer OTHER, SELFPAY ==
[2021-12-22] VITALS (13 sets, daily range): BP systolic 111–131; BP diastolic 62–86; PULSE 68–119; RESP 14–20; TEMP 36.3–36.9; O2SAT 100
--- NOTE | ~2021-12-22 | CT_ITS ---
EXAMINATION: CT abdomen pelvis w con DATE: 12/22/2021 15:04 INDICATION: Bilateral flank pain. Right lower quadrant abdominal pain. TECHNIQUE: Computed tomography (CT) of the abdomen and pelvis was performed with 100 mL Omnipaque 350 intravenous contrast. Automated exposure control and iterative reconstruction technique were employe d. The dose-length product was 198.36 mGy-cm. COMPARISON: CT abdomen and pelvis 11/20/2017 FINDINGS: The visualized portions of the lung bases are clear without pneumonia or pleural effusion. The heart size is normal. No pericardial effusion. The liver is normal. There are changes of cholecys tectomy. The spleen, pancreas, adrenal glands, and left kidney are normal. There is a 9 mm cyst in ri ght kidney. There are no dilated loops of bowel. The appendix is normal. There are no pathologically enlarged lymph nodes. There is no free intraperitoneal fluid. There is dextroscoliosis of thoracolumb ar spine. IMPRESSION: 1. No etiology for the patient's symptoms. Reviewed, dictated and finalized at location A. [employer] DES[employer]INE[employer]
--- NOTE | ~2021-12-22 | US_ITS ---
EXAMINATION: US pelvic complete w TV DATE: 12/22/2021 16:31 INDICATION: RLQ pain, Hx of ovarian cyst, negative CT TECHNIQUE: Multiple transabdominal and endovaginal sonographic images of the pelvis were obtained. COMPARISON: CT abdomen and pelvis, same date. FINDINGS: Uterus: Surgically absent. Right Ovary: 4.4 x 1.6 x 2.6 cm. Vascular flow is present. Left Ovary: 3.4 x 1.9 x 2.4 cm. Vascular flow is present. There is no free fluid in the pelvis. IMPRESSION: Status post hysterectomy, otherwise normal pelvic sonogram findings. Reviewed, dictated and finalized at location K. ECTIONAL GUARD
[2021-12-22 12:13] LABS: Basophils Percent Auto 0.6 % (0.2-1.2); Eosinophils Absolute Auto 0.1 K/mm3 (0-0.3); Eosinophils Percent Auto 1.1 % (0-4.4); Hematocrit 43.4 % (37.0-47.0); Hemoglobin 14.3 g/dL (12.0-15.0); Immature Granulocyte Absolute 0.02 K/mm3 (0.00-0.031); Immature Granulocyte Percent A 0.3 % (0-0.5); Lymphocytes Absolute Auto 1.49 K/mm3 (0.9-3.2); Lymphocytes Percent Auto 23.6 % (18.3-44.2); Mean Corpuscular HGB Conc 32.9 g/dl (32-36); Mean Corpuscular Volume 91.2 fl (80-100); Mean Platelet Volume 10.3 fl (7.4-10.4); Monocytes Absolute Auto 0.5 K/mm3 (0.1-0.6); Monocytes Percent Auto 8.2 % (2.6-8.5); Neutrophils Absolute Auto 4.2 K/mm3 (1.3-6.7); Neutrophils Percent Auto 66.2 % (45.5-73.1); Platelet Count Result 209 k/mm3 (150-375); Red Blood Count 4.76 M/mm3 (4.2-5.4); Red Cell Distribution Width 11.4 % (11.5-14.5); White Blood Count 6.3 K/mm3 (4.5-10.0)
[2021-12-22 12:23] LABS: Alanine Aminotransferase 19 U/L (6-35); Albumin Level 4.6 g/dL (3.5-5.1); Alkaline Phosphatase 75 U/L (38-126); Anion Gap 16 mmol/L (8-16); Aspartate Amino Transferase 22 U/L (14-36); Bilirubin,Total 0.4 mg/dL (0.2-1.3); Blood Urea Nitrogen 8 mg/dL (7-17); Calcium 9.4 mg/dL (8.4-10.2); Carbon Dioxide 28 mmol/L (22-30); Chloride 97 mmol/L (98-107); Estimated CRCL calculation 75 ml/min; Estimated Glomerular Filt Rate > 60; Glucose 97 mg/dL (65-110); Lipase 31 U/L (23-300); Potassium 3.9 mmol/L (3.4-5.0); Sodium 141 mmol/L (137-145)
[2021-12-22 12:58] LABS: Add Urine Microscopic? NO; Appearance Urine Clear (Clear); Bilirubin Urine Negative (Negative); Blood Urine Negative (Negative); Color Urine Yellow (Yellow); Glucose Urine UA Negative (Negative); Ketones Urine Negative (Negative); Leukocyte Esterase Ur Negative LEU/UL (Negative); Nitrate Urine Negative (Negative); Protein Urine Negative (Negative); Specific Grav Ur 1.015 (1.001-1.035); Urobilinogen Urine 0.2 mg/dL (<2.0); pH Urine 5.5 (5.0-9.0)
--- NOTE | 2021-12-22 14:31 | ED.ABDPAIN ---
HPI - Abdominal Pain General Chief Complaint: Abdominal Pain <LUCY Butler Last Filed: 12/22/21 17:07> Stated Complaint: abd pain <LUCY Butler Last Filed: 12/22/21 17:07> Time Seen by Provider: 12/22/21 13:38 <LUCY Butlre Last Filed: 12/22/21 17:07> Source: patient <LUCY Butler Last Filed: 12/22/21 17:07> Mode of arrival: ambulatory <LUCY Butler Last Filed: 12/22/21 17:07> Limitations: no limitations <LUCY Butler Last Filed: 12/22/21 17:07> History of Present Illness HPI narrative: Patient is a 26-year-old female who presents the ED with report of right lower back pain, radiating around to her right lower abdomen. Patient reports she woke up with the pain yesterday. Pain has been constant since onset. She took ibuprofen yesterday, but has not taken anything for pain today. She went to an urgent care today and was referred to the ED for further evaluation. She denies any other symptoms, denies nausea, vomiting, diarrhea, constipation, dysuria, hematuria, fevers, cough or cold symptoms. <LUCY Butler Last Filed: 12/22/21 17:07> Related Data Home Medications: Home Medications Medication Instructions Recorded Confirmed venlafaxine 75 mg capsule,extended 75 mg PO DAILY 12/09/21 12/22/21 release 24 hr <LUCY Butler Last Filed: 12/22/21 17:07> Allergies/Adverse Reactions: Allergies Allergy/AdvReac Type Severity Reaction Status Date / Time azithromycin Allergy Severe N/V; HIVES Verified 12/22/21 11:28 lavender (Lavandula Allergy Severe HIVES Verified 12/22/21 11:28 angustifolia) oxycodone Allergy Severe HIVES Verified 12/22/21 11:28 pumpkin Allergy Severe HIVES Verified 12/22/21 11:28 benzocaine AdvReac Mild VAGINAL Verified 12/22/21 11:28 ITCHING/REDNESS mineral oil AdvReac Mild VAGINAL Verified 12/22/21 11:28 ITCHING/REDNESS resorcinol AdvReac Mild VAGINAL Verified 12/22/21 11:28 REDNESS/ITCHING trazodone AdvReac Unknown GROSS Verified 12/22/21 11:28 DIAL SOAP Allergy Severe HIVES. Uncoded 12/22/21 11:28 STARCH AdvReac Mild VAGINAL Uncoded 12/22/21 11:28 ITCHING/REDNESS VITAMIN E ACETATE AdvReac Mild VAGINAL Uncoded 12/22/21 11:28 REDNESS/ITCHING VITAMINS A AND D AdvReac Mild VAGINAL Uncoded 12/22/21 11:28 ITCHING/REDNESS <Rachael Holland PA-C - Last Filed: 12/22/21 17:07> Review of Systems Review of Systems: CONSTITUTIONAL: Denies fever, chills, or sweats. ENT: Denies rhinorrhea, congestion, sore throat. CARDIOVASCULAR: Denies chest pain. RESPIRATORY: Denies cough or dyspnea. GASTROINTESTINAL: Reports right lower abdominal pain. Denies constipation, nausea, vomiting, or diarrhea. GENITOURINARY: Denies dysuria or hematuria. MUSCULOSKELETAL: Reports right lower back pain. <Rachael Holland PA-C - Last Filed: 12/22/21 17:07> All systems reviewed & are unremarkable except as noted in HPI and below <Rachael Holland PA-C - Last Filed: 12/22/21 17:07> [facility] Past Medical History Medical History: Medical History Abnormal uterine bleeding Anxiety Chronic headache History of anxiety History of depression History of ear pain History of ovarian cyst IBS (irritable bowel syndrome) Left hip pain Low body mass index (BMI) Pelvic pain Scoliosis <Rachael Holland PA-C - Last Filed: 12/22/21 17:07> Surgical History Surgical History: Surgical History History of cholecystectomy History of hysterectomy History of removal of ovarian cyst History of tonsillectomy and adenoidectomy Hx of toe surgery Rt great toe. <Rachael Holland PA-C - Last Filed: 12/22/21 17:07> Family History Family History: Family History (Reviewed 12/09/21 @ 14:55 b
--- NOTE | 2021-12-22 14:47 | PC.NURSE ---
Pt to CT scan via stretcher at this time.
[2021-12-22] MEDS: SODIUM CHLORIDE 0.9% IV 1,000 ML 999 ML IV CONT (15:12)
[2021-12-22] MEDS: KETOROLAC 30 MG/ML VIAL (*BKC) IV PUSH (16:10)
== END 2021-12-22 17:20 | disposition home or self-care (01) ==
PROVIDERS: Emergency Provider Emergency Medicine; PCP Family Medicine
DX: R10.84 Generalized abdominal pain (principal); K58.9 Irritable bowel syndrome, unspecified; F41.9 Anxiety disorder, unspecified; F32.A Depression, unspecified; Z90.710 Acquired absence of both cervix and uterus; F17.290 Nicotine dependence, other tobacco product, uncomplicated
CPT/HCPCS: 36415; 74177; 76830; 76856; 80053; 81003; 81025; 83690; 85025; 96361; 96365; 96375; 99284; J0131; J1885; J7030; Q9967

== ENCOUNTER 2022-01-18 10:49 | Emergency (ER) | payer OTHER, SELFPAY ==
--- NOTE | 2022-01-18 11:11 | ED.URI ---
HPI - URI/Sore Throat General Chief Complaint: Upper Respiratory Infection Stated Complaint: uri Time Seen by Provider: 01/18/22 11:51 Source: patient and RN notes reviewed Mode of arrival: ambulatory Limitations: no limitations History of Present Illness HPI Narrative: 26-year-old female presents with concern for 40 history general malaise, chills, sweats, body aches, nasal congestion, rhinorrhea, sore throat, occasional cough. Reports she has been taking Tylenol. Reports her mother has RSV MD elicited complaint: cough, sore throat and nasal congestion Related Data Allergies Allergy/AdvReac Type Severity Reaction Status Date / Time azithromycin Allergy Severe N/V; HIVES Verified 01/18/22 11:34 lavender (Lavandula Allergy Severe HIVES Verified 01/18/22 11:34 angustifolia) oxycodone Allergy Severe HIVES Verified 01/18/22 11:34 pumpkin Allergy Severe HIVES Verified 01/18/22 11:34 benzocaine AdvReac Mild VAGINAL Verified 01/18/22 11:34 ITCHING/REDNESS mineral oil AdvReac Mild VAGINAL Verified 01/18/22 11:34 ITCHING/REDNESS resorcinol AdvReac Mild VAGINAL Verified 01/18/22 11:34 REDNESS/ITCHING trazodone AdvReac Unknown GROSS Verified 01/18/22 11:34 Review of Systems Review of Systems: CONSTITUTIONAL: Reports malaise, chills, sweats EYES: Denies visual changes, redness, or discharge. ENT: Reports rhinorrhea, congestion, and sore throat. CARDIOVASCULAR: Denies chest pain, palpitations, or edema. RESPIRATORY: Reports occasional cough. Denies dyspnea. GASTROINTESTINAL: Denies abdominal pain, nausea, vomiting, diarrhea SKIN: Denies rash or itching. MUSCULOSKELETAL: Reports myalgia. NEUROLOGIC: Reports headache. All systems reviewed & are unremarkable except as noted in HPI and below PMFSH Past Medical History Medical History Abnormal uterine bleeding Anxiety Chronic headache History of anxiety History of depression History of ear pain History of ovarian cyst IBS (irritable bowel syndrome) Left hip pain Low body mass index (BMI) Pelvic pain Scoliosis Surgical History Surgical History History of cholecystectomy History of hysterectomy History of removal of ovarian cyst History of tonsillectomy and adenoidectomy Hx of toe surgery Rt great toe. Family History Family History Other Arthritis Depression Diabetes mellitus Heart disease Hypertension Kidney disorder Social History Social History Tobacco type: e-cigarettes/vaping Alcohol intake: current Substance use: never Gender identity (if verbalized by the patient): Female Comments At time of signature, agree with nursing past medical, surgical, social and family history. There is no relevant family history pertinent to the presenting complaint Exam Narrative: GENERAL: Nontoxic-appearing and in no acute distress. HEAD: Normocephalic EYES: PERRLA, conjunctivae clear ENT: Nares clear, turbinates edematous and erythematous, clear discharge. Mucous membranes moist. TM pearly boyce with dull light reflex bilaterally; no tragal tenderness. Oropharynx not erythematous without lesions. Tonsils not enlarged and without exudate, no drooling, no hoarseness, no trismus, uvula midline. NECK: Supple. No lymphadenopathy CHEST: Clear to auscultation, breath sounds equal. No wheezing, rhonchi, rales, or stridor. No respiratory distress, speaks in full sentences. HEART: Regular rate and rhythm. No murmur heard. SKIN: Warm, dry, no rash. NEURO: Alert and oriented x3. PSYCH: Normal mood and affect Course Course Emergency Course: Patient is aware of diagnosis, understands and agrees to treatment plan. Anticipatory guidance given. Patient agrees to follow-up as directed and is aware of reasons to seek care at the
[2022-01-18 11:15] VITALS: BP 107/82; PULSE 101; RESP 16; TEMP 37.4; O2SAT 100
== END 2022-01-18 12:05 | disposition home or self-care (01) ==
PROVIDERS: Emergency Provider Nurse Practitioner; PCP Family Medicine
DX: J11.1 Influenza due to unidentified influenza virus with other respiratory manifestations (principal); M41.9 Scoliosis, unspecified
CPT/HCPCS: 87804; 99213; G0463

== ENCOUNTER 2022-03-02 15:03 | Emergency (ER) | payer OTHER, SELFPAY ==
--- NOTE | 2022-03-02 15:11 | ED.GENADULT ---
HPI - General Adult General Chief complaint: Nausea/Vomiting/Diarrhea Stated complaint: Fever/Nauesea/Loss Of Appetite Time Seen by Provider: 03/02/22 15:12 Source: patient, RN notes reviewed and old records reviewed Mode of arrival: ambulatory Limitations: no limitations History of Present Illness HPI narrative: 26-year-old female presents to the [facility] with complaints of fever, nausea, loss of appetite. Symptoms for 2 or 3 days. No treatment prior to Denies any abdominal pain or chest pain. Denies any coughing or shortness of breath. Had COVID 2 weeks ago, tested positive at work Related Data Allergies Allergy/AdvReac Type Severity Reaction Status Date / Time azithromycin Allergy Severe N/V; HIVES Verified 03/02/22 15:34 lavender (Lavandula Allergy Severe HIVES Verified 03/02/22 15:34 angustifolia) oxycodone Allergy Severe HIVES Verified 03/02/22 15:34 pumpkin Allergy Severe HIVES Verified 03/02/22 15:34 benzocaine AdvReac Mild VAGINAL Verified 03/02/22 15:34 ITCHING/REDNESS mineral oil AdvReac Mild VAGINAL Verified 03/02/22 15:34 ITCHING/REDNESS resorcinol AdvReac Mild VAGINAL Verified 03/02/22 15:34 REDNESS/ITCHING trazodone AdvReac Unknown GROSS Verified 03/02/22 15:34 Review of Systems Review of Systems: All systems reviewed & are unremarkable except as noted in HPI and below Constitutional: Constitutional: Reports as per HPI and Reports fever(s) Eyes: Eyes: Reports no additional eye complaints ENT: Reports system reviewed and no additional complaints, except as documented Cardiovascular: Cardiovascular: Reports no additional cardiovascular complaints, Denies chest pain and Denies dyspnea Respiratory: Respiratory: Reports no additional respiratory complaints, Denies chest congestion, Denies cough and Denies dyspnea Gastrointestinal: Gastrointestinal: Reports as per HPI, Denies abdominal pain, Denies nausea and Denies vomiting Musculoskeletal: Musculoskeletal: Reports no additional musculoskeletal complaints Integumentary/Breasts: Skin/Breast: Reports system reviewed and no additional complaints, except as docu Neurologic: Reports system reviewed and no additional complaints, except as documented Psychiatric: Psychiatric: Reports no additional psychiatric complaints Allergic/Immunologic: Allergic/Immunologic: Reports no additional allergic/immunologic complaints PMFSH Past Medical History Medical History Abnormal uterine bleeding Anxiety Chronic headache History of anxiety History of depression History of ear pain History of ovarian cyst IBS (irritable bowel syndrome) Left hip pain Low body mass index (BMI) Pelvic pain Scoliosis Surgical History Surgical History History of cholecystectomy History of hysterectomy History of removal of ovarian cyst History of tonsillectomy and adenoidectomy Hx of toe surgery Rt great toe. Family History Family History Other Arthritis Depression Diabetes mellitus Heart disease Hypertension Kidney disorder Social History Social History Tobacco type: e-cigarettes/vaping Alcohol intake: current Substance use: never Gender identity (if verbalized by the patient): Female Comments At the time of my signature, I reviewed and agree with the nursing past medical, surgical, social, and family history. There is no relevant family history pertinent to the patient complaint. Exam Const: General: cooperative, no acute distress, well developed, alert, ill appearing acutely (mild) and well nourished Nutritional Appearance: well nourished Orientation/consciousness: patient oriented x3 Limitations: no limitations HENMT: Head: normal to inspection Ears: hearing grossly normal bilaterally and external ears normal Face
[2022-03-02 15:20] VITALS: BP 104/84; PULSE 120; RESP 20; TEMP 37.9; O2SAT 100
== END 2022-03-02 15:42 | disposition home or self-care (01) ==
PROVIDERS: Emergency Provider Nurse Practitioner; PCP Family Medicine
DX: J02.0 Streptococcal pharyngitis (principal); F17.290 Nicotine dependence, other tobacco product, uncomplicated
CPT/HCPCS: 87804; 87880; 99213; G0463

== ENCOUNTER 2022-04-16 11:27 | Emergency (ER) | payer OTHER, SELFPAY ==
[2022-04-16 11:37] VITALS: BP 111/76; PULSE 103; RESP 16; TEMP 37; O2SAT 99
--- NOTE | 2022-04-16 11:50 | ED.BACK ---
HPI - Back Pain/Injury General Chief Complaint: Back Pain/Injury Stated Complaint: BACK PAIN Time Seen by Provider: 04/16/22 11:40 Source: patient Mode of arrival: ambulatory Limitations: no limitations History of Present Illness HPI Narrative: patient is a 26-year-old female that reports low back pain with no radiation to her legs after moving a piano, washer And fish drier yesterday. patient she denies any numbness or tingling to legs, denies loss of bowel or bladder symptoms. has tried ibuprofen this morning with no relief. Related Data Allergies Allergy/AdvReac Type Severity Reaction Status Date / Time azithromycin Allergy Severe N/V; HIVES Verified 04/16/22 11:49 lavender (Lavandula Allergy Severe HIVES Verified 04/16/22 11:49 angustifolia) oxycodone Allergy Severe HIVES Verified 04/16/22 11:49 pumpkin Allergy Severe HIVES Verified 04/16/22 11:49 benzocaine AdvReac Mild VAGINAL Verified 04/16/22 11:49 ITCHING/REDNESS mineral oil AdvReac Mild VAGINAL Verified 04/16/22 11:49 ITCHING/REDNESS resorcinol AdvReac Mild VAGINAL Verified 04/16/22 11:49 REDNESS/ITCHING trazodone AdvReac Unknown GROSS Verified 04/16/22 11:49 Review of Systems Review of Systems: CONSTITUTIONAL: Denies malaise, chills, sweats, or fever. EYES: Denies visual changes, redness, or discharge. ENT: Denies rhinorrhea, congestion, sinus pain, otalgia or sore throat. CARDIOVASCULAR: Denies chest pain, palpitations, or edema. RESPIRATORY: Denies cough or dyspnea. GASTROINTESTINAL: Denies abdominal pain, nausea, vomiting, diarrhea, bloody, or mucous stools. GENITOURINARY: Denies dysuria or hematuria. SKIN: Denies rash or itching. MUSCULOSKELETAL: Denies joint pain, or myalgia. reports back pain NEUROLOGIC: Denies numbness, weakness, or headache. PSYCHIATRIC: Denies anxiety or depression. All systems reviewed & are unremarkable except as noted in HPI and below PMFSH Past Medical History Medical History Abnormal uterine bleeding Anxiety Chronic headache History of anxiety History of depression History of ear pain History of ovarian cyst IBS (irritable bowel syndrome) Left hip pain Low body mass index (BMI) Pelvic pain Scoliosis Surgical History Surgical History History of cholecystectomy History of hysterectomy History of removal of ovarian cyst History of tonsillectomy and adenoidectomy Hx of toe surgery Rt great toe. Family History Family History Other Arthritis Depression Diabetes mellitus Heart disease Hypertension Kidney disorder Social History Social History Tobacco type: e-cigarettes/vaping Alcohol intake: current Substance use: never Living arrangements: with family Gender identity (if verbalized by the patient): Female Comments At time of signature, agree with nursing past medical, surgical, social and family history. There is no relevant family history pertinent to the presenting complaint. Exam Narrative: GENERAL: Well-appearing, well-nourished, and in no acute distress. HEAD: Normocephalic, atraumatic. EYES: PERRLA and EOMI. NECK: Supple. No lymphadenopathy. CHEST: Clear to auscultation. No respiratory distress. HEART: Regular rate and rhythm. Distal pulses palpable and equal, cap refill <3 seconds ABDOMEN: Soft, nontender, nondistended, normal active bowel sounds, no palpable or pulsatile masses. No CVA tenderness MUSCULOSKELETAL: Normal range of motion and strength in all extremities; 5/5 strength with hip flexion and extension, dorsiflexion and extension, knee flexion and extension, plantar flexion and extension. Normal sensation in dermatomal distributions with sensitivity to light touch and pain. No midline back tenderness to palpation. Bilateral paraspinal tenderness to
== END 2022-04-16 12:13 | disposition home or self-care (01) ==
PROVIDERS: Emergency Provider Nurse Practitioner Family; PCP Family Medicine
DX: M54.50 Low back pain, unspecified (principal); F17.290 Nicotine dependence, other tobacco product, uncomplicated
CPT/HCPCS: 99213; G0463

== ENCOUNTER 2022-04-21 15:56 | Emergency (ER) | payer OTHER, SELFPAY ==
--- NOTE | ~2022-04-21 | XR_ITS ---
EXAM: XR lumbar spine min 4V DATE: 04/21/2022 18:26 HISTORY: LBP X 6d after moving piano, PAIN TO LOWER BK, BK SPASM . COMPARISON: 05/08/2019. FINDINGS: Cholecystectomy clips. Mild thoracolumbar scoliosis. 5 nonrib-bearing lumbar-type vertebral bodies. Pedicles intact. Normal vertebral body alignment. Vertebral body heights preserved. Disc spa roman maintained. Normal facets and posterior elements. No fracture or dislocation. IMPRESSION: No acute fracture or traumatic malalignment detected in the lumbar spine. Reviewed, dictated and finalized at location [facility]. [employer]
[2022-04-21 15:58] VITALS: BP 106/72; PULSE 118; RESP 16; TEMP 36.9; O2SAT 100
--- NOTE | 2022-04-21 16:12 | PC.NURSE ---
Pt denies chance of , states has had a hysterectomy.
[2022-04-21 16:49] LABS: Appearance Urine Cloudy (Clear); Bacteria Urine 1+ /hpf; Bilirubin Urine Negative (Negative); Blood Urine Negative (Negative); Color Urine Yellow (Yellow); Glucose Urine UA Negative (Negative); Ketones Urine Negative (Negative); Leukocyte Esterase Ur Negative LEU/UL (Negative); Nitrate Urine Negative (Negative); Non Pathogenic Casts 0-2; Protein Urine Negative (Negative); Specific Grav Ur 1.023 (1.001-1.035); Squamous Epithelial Cell Urine Few /hpf (Few); WBC Urine 0-5 /hpf
[2022-04-21 17:03] LABS: Add Urine Microscopic? YES
--- NOTE | 2022-04-21 17:39 | ED.BACK ---
HPI - Back Pain/Injury General Chief Complaint: Back Pain/Injury Stated Complaint: back pain- urgent care on 04/16/22 pulled muscle Time Seen by Provider: 04/21/22 16:50 Source: patient and old records reviewed Mode of arrival: ambulatory Limitations: no limitations History of Present Illness HPI Narrative: Patient is a 26-year-old female who presents to the ED with report of low back pain. Patient reports she was moving furniture, including a piano, washer, and dryer on 04/15. She strained her back at that time and has had persistent low back pain since then. Pain in the middle and radiates to left side, intermittently radiates down legs. She was seen in urgent care on 04/16 and prescribed baclofen. Patient has been taking this and ibuprofen without much relief. She last took ibuprofen at noon today. She denies any further injury. Patient denies any abdominal pain, nausea, vomiting, fevers, numbness, tingling, bowel or bladder incontinence, weakness of lower extremities. Related Data Allergies Allergy/AdvReac Type Severity Reaction Status Date / Time azithromycin Allergy Severe N/V; HIVES Verified 04/21/22 16:13 lavender (Lavandula Allergy Severe HIVES Verified 04/21/22 16:13 angustifolia) oxycodone Allergy Severe HIVES Verified 04/21/22 16:13 pumpkin Allergy Severe HIVES Verified 04/21/22 16:13 benzocaine AdvReac Mild VAGINAL Verified 04/21/22 16:13 ITCHING/REDNESS mineral oil AdvReac Mild VAGINAL Verified 04/21/22 16:13 ITCHING/REDNESS resorcinol AdvReac Mild VAGINAL Verified 04/21/22 16:13 REDNESS/ITCHING trazodone AdvReac Unknown GROSS Verified 04/21/22 16:13 Review of Systems Review of Systems: CONSTITUTIONAL: Denies fever, chills, or sweats. CARDIOVASCULAR: Denies chest pain. RESPIRATORY: Denies dyspnea. GASTROINTESTINAL: Denies abdominal pain, nausea, vomiting, incontinence, or diarrhea. GENITOURINARY: Denies incontinence, dysuria or hematuria. MUSCULOSKELETAL: See HPI. NEUROLOGIC: Denies tingling, saddle anesthesia, numbness, or weakness. All systems reviewed & are unremarkable except as noted in HPI and below PMFSH Past Medical History Medical History Abnormal uterine bleeding Anxiety Chronic headache History of anxiety History of depression History of ear pain History of ovarian cyst IBS (irritable bowel syndrome) Left hip pain Low body mass index (BMI) Pelvic pain Scoliosis Surgical History Surgical History History of cholecystectomy History of hysterectomy History of removal of ovarian cyst History of tonsillectomy and adenoidectomy Hx of toe surgery Rt great toe. Family History Family History Other Arthritis Depression Diabetes mellitus Heart disease Hypertension Kidney disorder Social History Social History Tobacco type: e-cigarettes/vaping Alcohol intake: current Substance use: never Living arrangements: with family Gender identity (if verbalized by the patient): Female Exam Narrative: GENERAL: Well appearing, thin, non-toxic, in no acute distress. HEAD: Normocephalic, atraumatic. NECK: Supple. No adenopathy, no masses. RESPIRATORY: Airway patent, respirations nonlabored. Clear to auscultation bilaterally, no rales, rhonchi, wheezing. CARDIOVASCULAR: Regular rate and rhythm without murmurs, rubs, or gallops. Radial pulses 2+ and equal bilaterally. ABDOMINAL: Soft, nontender, nondistended, no hepatosplenomegaly. Normoactive BS. MUSCULOSKELETAL: Moves all extremities. Strength/ROM intact without gross deformities. Mild midline lumbosacral tenderness to palpation. No palpable deformities or bony step-offs. Bilateral paraspinal muscle tenderness in lumbosacral region, plus tenderness over bilateral SI regions. Sensation
[2022-04-21] MEDS: KETOROLAC 30 MG/ML VIAL (*BKC) IV PUSH (17:49)
[2022-04-21] MEDS: methylPREDNISolone SOD SUCC 125 MG VIAL IV PUSH (17:49)
[2022-04-21] MEDS: diazePAM INJ (*CRX) 10 MG/2 ML SYRINGE IV PUSH (17:49)
[2022-04-21 17:56] VITALS: BP 113/73; PULSE 72; RESP 15; O2SAT 100
== END 2022-04-21 19:54 | disposition home or self-care (01) ==
PROVIDERS: General Practice; Emergency Provider Physician Assistant; PCP Family Medicine
DX: S39.012A Strain of muscle, fascia and tendon of lower back, initial encounter (principal); K58.9 Irritable bowel syndrome, unspecified; Z90.710 Acquired absence of both cervix and uterus; F17.290 Nicotine dependence, other tobacco product, uncomplicated; X50.0XXA Overexertion from strenuous movement or load, initial encounter
CPT/HCPCS: 72110; 81001; 96365; 96375; 99284; J0131; J1885; J2930; J3360

== ENCOUNTER 2022-05-24 12:14 | Emergency (ER) | payer OTHER, SELFPAY ==
--- NOTE | 2022-05-24 12:18 | ED.URI ---
HPI - URI/Sore Throat General Chief Complaint: Upper Respiratory Infection Stated Complaint: uri Time Seen by Provider: 05/24/22 12:37 Source: patient and RN notes reviewed Mode of arrival: ambulatory Limitations: no limitations History of Present Illness HPI Narrative: 18-year-old female presents with concern for nasal congestion, rhinorrhea, sinus pressure, headache. Reports 1 week of symptoms. Reports she has been taking ibuprofen without relief MD elicited complaint: rhinorrhea and nasal congestion Related Data Allergies Allergy/AdvReac Type Severity Reaction Status Date / Time azithromycin Allergy Severe N/V; HIVES Verified 05/24/22 12:16 lavender (Lavandula Allergy Severe HIVES Verified 05/24/22 12:16 angustifolia) oxycodone Allergy Severe HIVES Verified 05/24/22 12:16 pumpkin Allergy Severe HIVES Verified 05/24/22 12:16 benzocaine AdvReac Mild VAGINAL Verified 05/24/22 12:16 ITCHING/REDNESS mineral oil AdvReac Mild VAGINAL Verified 05/24/22 12:16 ITCHING/REDNESS resorcinol AdvReac Mild VAGINAL Verified 05/24/22 12:16 REDNESS/ITCHING trazodone AdvReac Unknown GROSS Verified 05/24/22 12:16 Review of Systems Review of Systems: CONSTITUTIONAL: Reports malaise, fever. EYES: Denies visual changes, redness, or discharge. ENT: Reports rhinorrhea, congestion, sinus pain. Denies otalgia and sore throat. CARDIOVASCULAR: Denies chest pain, palpitations, or edema. RESPIRATORY: Reports cough. Denies dyspnea. GASTROINTESTINAL: Denies abdominal pain, nausea, vomiting, diarrhea SKIN: Denies rash or itching. MUSCULOSKELETAL: Denies myalgia. NEUROLOGIC: Denies headache. All systems reviewed & are unremarkable except as noted in HPI and below PMFSH Past Medical History Medical History Abnormal uterine bleeding Anxiety Chronic headache History of anxiety History of depression History of ear pain History of ovarian cyst IBS (irritable bowel syndrome) Left hip pain Low body mass index (BMI) Pelvic pain Scoliosis Surgical History Surgical History History of cholecystectomy History of hysterectomy History of removal of ovarian cyst History of tonsillectomy and adenoidectomy Hx of toe surgery Rt great toe. Family History Family History Other Arthritis Depression Diabetes mellitus Heart disease Hypertension Kidney disorder Social History Social History Tobacco type: e-cigarettes/vaping Alcohol intake: current Substance use: never Living arrangements: with family Gender identity (if verbalized by the patient): Female Comments At time of signature, agree with nursing past medical, surgical, social and family history. There is no relevant family history pertinent to the presenting complaint Exam Narrative: GENERAL: Well-appearing, well-nourished, and in no acute distress. HEAD: Normocephalic EYES: PERRLA, conjunctivae clear ENT: Nares clear, turbinates edematous and erythematous, yellow discharge. Mucous membranes moist. TM pearly boyce with dull light reflex bilaterally; no tragal tenderness. Oropharynx not erythematous without lesions. Tonsils not enlarged and without exudate, no drooling, no hoarseness, no trismus, uvula midline. NECK: Supple. No lymphadenopathy CHEST: Clear to auscultation, breath sounds equal. No wheezing, rhonchi, rales, or stridor. No respiratory distress, speaks in full sentences. HEART: Regular rate and rhythm. No murmur heard. SKIN: Warm, dry, no rash. NEURO: Alert and oriented x3. PSYCH: Normal mood and affect Course Course Emergency Course: Patient is aware of diagnosis, understands and agrees to treatment plan. Anticipatory guidance given. Patient agrees to follow-up as directed and is aware of reasons to seek car
[2022-05-24 12:22] VITALS: BP 116/75; PULSE 96; RESP 16; TEMP 37; O2SAT 99
== END 2022-05-24 12:56 | disposition home or self-care (01) ==
PROVIDERS: Emergency Provider Nurse Practitioner; PCP Family Medicine
DX: J01.90 Acute sinusitis, unspecified (principal); B96.89 Other specified bacterial agents as the cause of diseases classified elsewhere
CPT/HCPCS: 99213; G0463

== ENCOUNTER 2022-07-16 14:24 | Outpatient (CLI) | payer OTHER, SELFPAY ==
--- NOTE | ~2022-07-16 | MR_ITS ---
EXAMINATION: MR knee RT wo con DATE: 07/16/2022 15:17 INDICATION: Chronic right knee pain TECHNIQUE: Magnetic resonance imaging (MRI) of the right knee was performed without intravenous contr ast. Sequences included coronal PD-weighted FSE, coronal PD-weighted FS FSE, sagittal T2-weighted FS E, sagittal PD-weighted FS FSE and axial PD weighted fat saturated FSE. COMPARISON: None. FINDINGS: Medial compartment: Medial meniscus is normal. Articular cartilage is normal. Lateral compartment: Lateral meniscus is normal. Articular cartilage is normal. Patellofemoral compartment: Articular cartilage is normal. Ligaments and tendons: Anterior and posterior cruciate ligaments are normal. The medial collateral ligament and fibular adeola ateral ligament complex are normal. The extensor mechanism is normal. The visualized medial and later al hamstring tendons as well as the iliotibial band are normal. Fluid: Physiologic amount of fluid in the joint space. No loose osteochondral bodies identified. Osseous/other: Normal marrow signal. No fracture or pathologic marrow replacing process. IMPRESSION: 1. Normal right knee MRI Reviewed, dictated and finalized at location A. IMPRESSION: 1. Normal right knee MRI
== END 2022-07-16 14:25 | disposition home or self-care (01) ==
PROVIDERS: PCP Family Medicine; Visit Provider Orthopaedic Surgery
DX: M25.561 Pain in right knee (principal); G89.29 Other chronic pain
CPT/HCPCS: 73721

== ENCOUNTER 2022-09-01 02:18 | Emergency (ER) | payer OTHER, SELFPAY ==
--- NOTE | ~2022-09-01 | CT_ITS ---
Non-contrast CT scan of the Abdomen and Pelvis Clinical indication: Right flank pain Technique: 2.5 mm axial scans were obtained through the abdomen and pelvis without intravenous or or al contrast. Dose reduction technique was used on this scan by utilizing automated exposure control a nd iterative reconstruction technique. The dose-length product (DLP) was 182.30 mGy-cm. COMPARISON: 12/22/2021 Findings: Images through the lung bases reveal no abnormalities. Probable tiny punctate nonobstructing renal stones present. No ureteral stone or hydronephrosis on ei ther side. The liver, spleen, pancreas, and adrenals appear normal. Cholecystectomy clips are present. There is no aortic aneurysm. There is no evidence of bowel obstruction. Normal appendix present. Images through the pelvis were performed. There is no evidence of ascites or lymphadenopathy. Urinary bladder unremarkable. No pelvic mass identified. No ascites. Impression: Probable tiny, punctate bilateral nonobstructing renal stones. No other significant findings. Reviewed, dictated and finalized at [facility]. Impression: Probable tiny, punctate bilateral nonobstructing renal stones. No other significant findings.
[2022-09-01 02:21] VITALS: BP 115/74; PULSE 108; RESP 16; TEMP 36.3; O2SAT 100
[2022-09-01 02:49] LABS: Appearance Urine Turbid (Clear); Bacteria Urine 4+ /hpf; Bilirubin Urine Negative (Negative); Blood Urine 3+ (Negative); Color Urine Yellow (Yellow); Glucose Urine UA Negative (Negative); Ketones Urine Negative (Negative); Leukocyte Esterase Ur 2+ LEU/UL (Negative); Need Manual Microscopic Reviewed; Nitrate Urine Negative (Negative); Protein Urine 2+ mg/dL (Negative); RBC Urine >100 /hpf (0-2); Specific Grav Ur 1.025 (1.001-1.035); Squamous Epithelial Cell Urine Moderate /hpf (Few); WBC Urine >100 /hpf
[2022-09-01 03:03] LABS: Add Urine Microscopic? YES
[2022-09-01] MEDS: KETOROLAC 30 MG/ML VIAL (*BKC) IM (03:28)
[2022-09-01 03:40] LABS: Basophils Percent Auto 0.4 % (0.2-1.2); Eosinophils Percent Auto 0.2 % (0-4.4); Hematocrit 41.4 % (37.0-47.0); Hemoglobin 13.6 g/dL (12.0-15.0); Immature Granulocyte Absolute 0.02 K/mm3 (0.00-0.031); Immature Granulocyte Percent A 0.2 % (0-0.5); Immature Platelet Fraction Pct 6.9 % (0.9-11.2); Lymphocytes Absolute Auto 1.36 K/mm3 (0.9-3.2); Mean Corpuscular HGB Conc 32.9 g/dl (32-36); Mean Corpuscular Hemoglobin 30.1 pg (26-34); Mean Corpuscular Volume 91.6 fl (80-100); Mean Platelet Volume 11.3 fl (7.4-10.4); Monocytes Absolute Auto 0.6 K/mm3 (0.1-0.6); Monocytes Percent Auto 7.5 % (2.6-8.5); Neutrophils Percent Auto 74.7 % (45.5-73.1); Platelet Count Result 141 k/mm3 (150-375); Red Blood Count 4.52 M/mm3 (4.2-5.4); Red Cell Distribution Width 11.8 % (11.5-14.5)
--- NOTE | 2022-09-01 03:48 | ED.FEMALEGU ---
HPI - Female Genitourinary General Chief complaint: Urogenital-Female Stated complaint: uti Time Seen by Provider: 09/01/22 02:32 History of Present Illness HPI Narrative: This is a 27-year-old female with past history of cholecystectomy and IBS, who presents to the emergency department complaining of dysuria and lower back pain for the past day. She states she noted dysuria yesterday but denies abnormal vaginal discharge or bleeding. She also noted right low back pain, described as sharp, rated 6/10 without radiation. Related Data Allergies Allergy/AdvReac Type Severity Reaction Status Date / Time azithromycin Allergy Severe N/V; HIVES Verified 05/24/22 12:16 lavender (Lavandula Allergy Severe HIVES Verified 05/24/22 12:16 angustifolia) oxycodone Allergy Severe HIVES Verified 05/24/22 12:16 pumpkin Allergy Severe HIVES Verified 05/24/22 12:16 benzocaine AdvReac Mild VAGINAL Verified 05/24/22 12:16 ITCHING/REDNESS mineral oil AdvReac Mild VAGINAL Verified 05/24/22 12:16 ITCHING/REDNESS resorcinol AdvReac Mild VAGINAL Verified 05/24/22 12:16 REDNESS/ITCHING trazodone AdvReac Unknown GROSS Verified 05/24/22 12:16 Review of Systems Review of Systems: CONSTITUTIONAL: Denies fever, chills, or sweats. CARDIOVASCULAR: Denies chest pain, palpitations, or edema. RESPIRATORY: Denies cough or dyspnea. GASTROINTESTINAL: Denies abdominal pain, nausea, vomiting, or diarrhea. GENITOURINARY: Dysuria denies hematuria. SKIN: Denies rash or itching. MUSCULOSKELETAL: Right-sided low back pain denies joint pain, or myalgia. NEUROLOGIC: Denies headache, numbness, dizziness, or weakness. PSYCHIATRIC: Denies anxiety or depression. [facility] Past Medical History Medical History Abnormal uterine bleeding Anxiety Chronic headache History of anxiety History of depression History of ear pain History of ovarian cyst IBS (irritable bowel syndrome) Left hip pain Low body mass index (BMI) Pelvic pain Scoliosis Surgical History Surgical History History of cholecystectomy History of hysterectomy History of removal of ovarian cyst History of tonsillectomy and adenoidectomy Hx of toe surgery Rt great toe. Family History Family History Other Arthritis Depression Diabetes mellitus Heart disease Hypertension Kidney disorder Social History Social History Tobacco type: e-cigarettes/vaping Alcohol intake: current Substance use: never Living arrangements: with family Gender identity (if verbalized by the patient): Female Exam Narrative: GENERAL: Well-developed, well-nourished, and in no acute distress. HEAD: Normocephalic, atraumatic. EYES: PERRLA and EOMI. CHEST: Clear to auscultation. No respiratory distress. No wheezes rales or rhonchi HEART: Regular rate and rhythm. No murmur heard. Normal peripheral pulses. ABDOMEN: Soft, nontender, nondistended, normal active bowel sounds. Right CVA tenderness to palpation, no noted left CVA tenderness EXTREMITIES: Normal range of motion. No edema. SKIN: Warm, dry, no rash. NEURO: No focal deficits. Alert and oriented x3. PSYCH: Normal mood and affect. Course Course Emergency Course: 05:23 - CT not concerning for stone. CBC demonstrates mild thrombocytopenia. CMP unremarkable. UA demonstrates positive leukocyte esterase and bacteria though with squamous cells. CT not concerning for stone or other acute intraabdominal process. On reevaluation, the patient is noted sleeping in the bed, easily awakens and denies pain. Will discharge with antibiotics and follow up with her primary care doctor. Discussed return and emergency precautions including signs/symptoms of acute abdomen, sepsis and intractable vomiting. The patient voiced understanding
[2022-09-01 04:11] LABS: Alanine Aminotransferase 15 U/L (6-35); Albumin Level 4.1 g/dL (3.5-5.1); Alkaline Phosphatase 65 U/L (38-126); Anion Gap 4 mmol/L (8-16); Aspartate Amino Transferase 20 U/L (14-36); Bilirubin,Total 0.5 mg/dL (0.2-1.3); Blood Urea Nitrogen 12 mg/dL (7-17); Calcium 8.9 mg/dL (8.4-10.2); Carbon Dioxide 28 mmol/L (22-30); Chloride 104 mmol/L (98-107); Estimated Glomerular Filt Rate > 60; Glucose 96 mg/dL (65-110); Potassium 3.6 mmol/L (3.4-5.0); Sodium 136 mmol/L (137-145)
[2022-09-01] MEDS: CEPHALEXIN 500 MG CAPSULE PO (05:35)
[2022-09-01 05:45] VITALS: BP 132/74; PULSE 87; RESP 19; O2SAT 99
== END 2022-09-01 05:45 | disposition home or self-care (01) ==
PROVIDERS: Emergency Provider Preventive Medicine Aerospace Medicine; PCP Family Medicine
DX: N30.01 Acute cystitis with hematuria (principal); K58.9 Irritable bowel syndrome, unspecified; F17.290 Nicotine dependence, other tobacco product, uncomplicated; Z90.49 Acquired absence of other specified parts of digestive tract; Z90.710 Acquired absence of both cervix and uterus
CPT/HCPCS: 36415; 74176; 80053; 81001; 85025; 85055; 87077; 87086; 87088; 87186; 96372; 99284; A9270; J1885

== ENCOUNTER 2022-10-24 18:14 | Emergency (ER) | payer OTHER, SELFPAY ==
--- NOTE | ~2022-10-24 | CT_ITS ---
EXAMINATION: CT abdomen pelvis w con DATE: 10/24/2022 19:39 INDICATION: Right flank pain TECHNIQUE: Computed tomography (CT) of the abdomen and pelvis was performed with 100 mL Omnipaque-350 intravenous contrast. Automated exposure control and iterative reconstruction technique were employe d. The dose-length product was 212.97 mGy-cm. COMPARISON: 09/01/2022, 12/22/2021. FINDINGS: Lower thorax: Unremarkable Liver: Normal. Biliary/Gallbladder: Gallbladder is absent. No bile duct dilation. Pancreas: No mass or duct dilation. Spleen: Normal. Adrenals:No mass. Kidneys: Left upper pole scar. Right lower pole simple cyst. Scattered hypodensities, too small to ch aracterize but most likely represent cysts. No suspicious mass, obstructing stone, or hydronephrosis. GI tract: No small or large bowel dilation. Normal appendix. Mesentery/Peritoneum: No ascites, mass, or free air. Retroperitoneum: No mass. Pelvis: Absent uterus. Normal appearing partially decompressed urinary bladder. Normal ovaries. Trace free pelvic fluid, within physiologic range. Soft Tissues: Soft tissues and body wall unremarkable. Bones: No acute osseous finding. IMPRESSION: No acute abdominopelvic process detected. Reviewed, dictated and finalized at location [facility].
[2022-10-24 18:17] VITALS: BP 127/99; PULSE 91; RESP 19; TEMP 36.5; O2SAT 100
[2022-10-24 18:25] VITALS: PULSE 73; O2SAT 100
[2022-10-24 18:28] VITALS: BP 127/99; PULSE 85; RESP 39; O2SAT 100
--- NOTE | 2022-10-24 18:31 | ECG_ITS ---
Measurements Intervals [place] Rate: 72 P: 35 FL: 130 QRS: -7 QRSD: 81 T: 51 QT: 386 QTc: 425 Interpretive Statements SINUS RHYTHM CONSIDER INFERIOR INFARCT, AGE INDETERMINATE ABNORMAL ECG COMPARED TO ECG 12/17/2019 17:47:41 SINUS RHYTHM NOW PRESENT Electronically Signed On 10-25-2022 6:56:42 CDT by Dahs Manzano D.O.
[2022-10-24] MEDS: ONDANSETRON INJ 4 MG/2 ML VIAL IV PUSH (19:01)
[2022-10-24] MEDS: SODIUM CHLORIDE 0.9% IV 2,000 ML 999 ML IV CONT (19:02)
--- NOTE | 2022-10-24 19:05 | PC.NURSE ---
This RN assumed care of patient. This RN took patient report from [facility].
[2022-10-24 19:14] LABS: Basophils Percent Auto 0.3 % (0.2-1.2); Eosinophils Percent Auto 0.3 % (0-4.4); Hematocrit 39.2 % (37.0-47.0); Hemoglobin 13.6 g/dL (12.0-15.0); Immature Granulocyte Absolute 0.01 K/mm3 (0.00-0.031); Immature Granulocyte Percent A 0.1 % (0-0.5); Immature Platelet Fraction Pct 6.9 % (0.9-11.2); Lymphocytes Absolute Auto 0.92 K/mm3 (0.9-3.2); Lymphocytes Percent Auto 13.2 % (18.3-44.2); Mean Corpuscular HGB Conc 34.7 g/dl (32-36); Mean Corpuscular Hemoglobin 30.5 pg (26-34); Mean Corpuscular Volume 87.9 fl (80-100); Mean Platelet Volume 11.4 fl (7.4-10.4); Monocytes Absolute Auto 0.6 K/mm3 (0.1-0.6); Monocytes Percent Auto 9.2 % (2.6-8.5); Neutrophils Absolute Auto 5.4 K/mm3 (1.3-6.7); Neutrophils Percent Auto 76.9 % (45.5-73.1); Platelet Count Result 126 k/mm3 (150-375); Red Blood Count 4.46 M/mm3 (4.2-5.4); Red Cell Distribution Width 11.6 % (11.5-14.5)
[2022-10-24 19:22] LABS: Alanine Aminotransferase 13 U/L (6-35); Alkaline Phosphatase 68 U/L (38-126); Anion Gap 9 mmol/L (8-16); Aspartate Amino Transferase 20 U/L (14-36); Bilirubin,Total 0.5 mg/dL (0.2-1.3); Blood Urea Nitrogen 13 mg/dL (7-17); Calcium 8.8 mg/dL (8.4-10.2); Carbon Dioxide 24 mmol/L (22-30); Chloride 105 mmol/L (98-107); Estimated CRCL calculation 86 ml/min; Estimated Glomerular Filt Rate > 60; Glucose 100 mg/dL (65-110); Lipase 54 U/L (23-300); Potassium 3.6 mmol/L (3.4-5.0); Sodium 138 mmol/L (137-145)
[2022-10-24 19:23] LABS: Lactic Acid Reflex 1.2 mmol/L (0.7-2.0)
--- NOTE | 2022-10-24 19:23 | ED.GENADULT ---
HPI - General Adult General Chief complaint: Chest Pain Stated complaint: CHEST HEAVINESS, ANXIETY, N/V Time Seen by Provider: 10/24/22 18:31 History of Present Illness HPI narrative: This is a 27-year-old female, with past history of cholecystitis status postcholecystectomy, hysterectomy, anxiety, who presents to the emergency department complaining of nausea, vomiting and cough for the past 3 days. Patient denies any known sick contacts and has had multiple negative COVID tests at home. She has vomited multiple times without blood. She also complains of right flank pain. Related Data Allergies Allergy/AdvReac Type Severity Reaction Status Date / Time azithromycin Allergy Severe N/V; HIVES Verified 10/24/22 18:28 lavender (Lavandula Allergy Severe HIVES Verified 10/24/22 18:28 angustifolia) oxycodone Allergy Severe HIVES Verified 10/24/22 18:28 pumpkin Allergy Severe HIVES Verified 10/24/22 18:28 benzocaine AdvReac Mild VAGINAL Verified 10/24/22 18:28 ITCHING/REDNESS mineral oil AdvReac Mild VAGINAL Verified 10/24/22 18:28 ITCHING/REDNESS resorcinol AdvReac Mild VAGINAL Verified 10/24/22 18:28 REDNESS/ITCHING trazodone AdvReac Unknown GROSS Verified 10/24/22 18:28 Review of Systems Review of Systems: CONSTITUTIONAL: Denies fever, chills, or sweats. ENT: Rhinorrhea, congestion denies sore throat, or otalgia. CARDIOVASCULAR: Chest heaviness denies palpitations, or edema. RESPIRATORY: Denies cough or dyspnea. GASTROINTESTINAL: Nausea and nonbloody vomiting denies abdominal pain, or diarrhea. GENITOURINARY: Denies dysuria or hematuria. SKIN: Denies rash or itching. MUSCULOSKELETAL: Denies back pain, joint pain, or myalgia. NEUROLOGIC: Denies headache, numbness, dizziness, or weakness. PSYCHIATRIC: Denies anxiety or depression. [facility] Past Medical History Medical History Abnormal uterine bleeding Anxiety Chronic headache History of anxiety History of depression History of ear pain History of ovarian cyst IBS (irritable bowel syndrome) Left hip pain Low body mass index (BMI) Pelvic pain Scoliosis Surgical History Surgical History History of cholecystectomy History of hysterectomy History of removal of ovarian cyst History of tonsillectomy and adenoidectomy Hx of toe surgery Rt great toe. Family History Family History Other Arthritis Depression Diabetes mellitus Heart disease Hypertension Kidney disorder Social History Social History Tobacco type: e-cigarettes/vaping Alcohol intake: current Substance use: never Living arrangements: with family Gender identity (if verbalized by the patient): Female Exam Narrative: GENERAL: Well-developed, well-nourished, appears uncomfortable HEAD: Normocephalic, atraumatic. EYES: PERRLA and EOMI. ENT: Nares clear, no rhinorrhea or epistaxis. Mucous membranes moist. Oropharynx without tonsillar hypertrophy exudate or other lesions. CHEST: Clear to auscultation. No respiratory distress. No wheezes rales or rhonchi HEART: Regular rate and rhythm. No murmur heard. Normal peripheral pulses. ABDOMEN: Soft, diffusely tender to palpation, without rebound or guarding, nondistended, normal active bowel sounds. Right CVA tenderness to palpation, no left CVA tenderness EXTREMITIES: Normal range of motion. No edema. SKIN: Warm, dry, no rash. NEURO: Alert and oriented x3. Moving all 4 limbs purposefully. PSYCH: Normal mood and affect. Course Course Emergency Course: 20:35 - EKG unremarkable. CBC demonstrates mild thrombocytopenia with platelets of 126 but is otherwise unremarkable. Chemistries within normal limits, including a normal lactic acid of 1.2. The patient is negative for COVID and influenza. CT abd
[2022-10-24 20:28] LABS: Influenza A QL RT-PCR Negative (Negative); Influenza B QL RT-PCR Negative (Negative); SARS-CoV-2 RNA PCR Negative (Negative)
== END 2022-10-24 20:49 | disposition home or self-care (01) ==
PROVIDERS: Emergency Provider Preventive Medicine Aerospace Medicine; PCP Family Medicine
DX: R11.2 Nausea with vomiting, unspecified (principal); J06.9 Acute upper respiratory infection, unspecified; Z20.822 Contact with and (suspected) exposure to COVID-19; K58.9 Irritable bowel syndrome, unspecified; F17.290 Nicotine dependence, other tobacco product, uncomplicated; Z90.49 Acquired absence of other specified parts of digestive tract; Z90.710 Acquired absence of both cervix and uterus; R94.31 Abnormal electrocardiogram [ECG] [EKG]
CPT/HCPCS: 36415; 74177; 80053; 83605; 83690; 85025; 85055; 87636; 93005; 96361; 96374; 99284; J2405; J7030; Q9967

== ENCOUNTER 2023-03-25 16:52 | Emergency (ER) | payer OTHER, SELFPAY ==
--- NOTE | 2023-03-25 16:53 | ED.FEMALEGU ---
HPI - Female Genitourinary General Chief complaint: Urogenital-Female Stated complaint: UTI Time Seen by Provider: 03/25/23 16:53 Source: patient Mode of arrival: ambulatory Limitations: no limitations History of Present Illness HPI Narrative: Patient is a 27-year-old female that presents with burning with urination, urgency, frequency and pelvic pain this started yesterday. Denies any low back pain, fever, chills, nausea, vomiting, diarrhea. Reports frequent UTIs with last 1 being a few months ago MD elicited complaint: dysuria Related Data Allergies Allergy/AdvReac Type Severity Reaction Status Date / Time azithromycin Allergy Severe N/V; HIVES Verified 03/25/23 17:05 lavender (Lavandula Allergy Severe HIVES Verified 03/25/23 17:05 angustifolia) oxycodone Allergy Severe HIVES Verified 03/25/23 17:05 pumpkin Allergy Severe HIVES Verified 03/25/23 17:05 benzocaine AdvReac Mild VAGINAL Verified 03/25/23 17:05 ITCHING/REDNESS mineral oil AdvReac Mild VAGINAL Verified 03/25/23 17:05 ITCHING/REDNESS resorcinol AdvReac Mild VAGINAL Verified 03/25/23 17:05 REDNESS/ITCHING trazodone AdvReac Unknown GROSS Verified 03/25/23 17:05 Review of Systems Review of Systems: All systems reviewed & are unremarkable except as noted in HPI and below Constitutional: Constitutional: Denies chills, Denies fever(s), Denies headache(s), Denies malaise and Denies weakness Eyes: Eyes: Denies change in vision, Denies eye discharge and Denies irritation ENT: Denies otalgia, Denies headache(s), Denies nasal congestion, Denies nasal discharge, Denies sinus pain and Denies sore throat Cardiovascular: Cardiovascular: Denies chest pain, Denies edema, Denies palpitations and Denies dyspnea Respiratory: Respiratory: Denies cough and Denies dyspnea Gastrointestinal: Gastrointestinal: Denies abdominal pain, Denies diarrhea, Denies nausea and Denies vomiting Genitourinary: Genitourinary: Denies hematuria, Reports nocturia, Reports dysuria, Denies flank pain and Reports urinary urgency Musculoskeletal: Musculoskeletal: Denies back pain and Denies numbness Integumentary/Breasts: Skin/Breast: Denies pruritus and Denies rash Neurologic: Denies headache(s), Denies numbness and Denies weakness Psychiatric: Psychiatric: Reports no additional psychiatric complaints Endocrine: Endocrine: Denies palpitations PMFSH Past Medical History Medical History Abnormal uterine bleeding Anxiety Chronic headache History of anxiety History of depression History of ear pain History of ovarian cyst IBS (irritable bowel syndrome) Left hip pain Low body mass index (BMI) Pelvic pain Scoliosis Surgical History Surgical History History of cholecystectomy History of hysterectomy History of removal of ovarian cyst History of tonsillectomy and adenoidectomy Hx of toe surgery Rt great toe. Family History Family History Other Arthritis Depression Diabetes mellitus Heart disease Hypertension Kidney disorder Social History Social History Tobacco type: e-cigarettes/vaping Alcohol intake: current Substance use: never Living arrangements: with family Gender identity (if verbalized by the patient): Female Comments At time of signature, agree with nursing past medical, surgical, social and family history. There is no relevant family history pertinent to the presenting complaint. Exam Const: General: cooperative, healthy appearing, comfortable, no acute distress and well nourished Nutritional Appearance: well nourished Orientation/consciousness: patient oriented x3 HENMT: Head: normocephalic and atraumatic Ears: external ears normal Face/Nose/Sinus: Normal external nose present, Normal nares present and normal f
[2023-03-25 17:10] VITALS: PULSE 113; RESP 20; TEMP 36.7; O2SAT 100
== END 2023-03-25 17:55 | disposition home or self-care (01) ==
PROVIDERS: Emergency Provider Nurse Practitioner Family; PCP Family Medicine
DX: N30.01 Acute cystitis with hematuria (principal); F17.290 Nicotine dependence, other tobacco product, uncomplicated
CPT/HCPCS: 81003; 87077; 87086; 87186; 99213; G0463

== ENCOUNTER 2023-04-15 10:38 | Emergency (ER) | payer OTHER, SELFPAY ==
[2023-04-15 10:47] VITALS: BP 111/76; PULSE 117; RESP 16; TEMP 37.2; O2SAT 100
--- NOTE | 2023-04-15 12:00 | ED.URI ---
HPI - URI/Sore Throat General Chief Complaint: Upper Respiratory Infection Stated Complaint: Sinus Time Seen by Provider: 04/15/23 11:50 Source: patient and RN notes reviewed Mode of arrival: ambulatory Limitations: no limitations History of Present Illness HPI Narrative: Patient presents today with a 3 day history of cough, congestion, bilateral ear pressure. She developed a fever up to 101 yesterday body aches. Denies known sick contacts. She has been taking ibuprofen with some relief. Related Data Home Medications Medication Instructions Recorded Confirmed No Home Medications 04/15/23 04/15/23 Allergies Allergy/AdvReac Type Severity Reaction Status Date / Time azithromycin Allergy Severe N/V; HIVES Verified 03/25/23 17:05 lavender (Lavandula Allergy Severe HIVES Verified 03/25/23 17:05 angustifolia) oxycodone Allergy Severe HIVES Verified 03/25/23 17:05 pumpkin Allergy Severe HIVES Verified 03/25/23 17:05 benzocaine AdvReac Mild VAGINAL Verified 03/25/23 17:05 ITCHING/REDNESS mineral oil AdvReac Mild VAGINAL Verified 03/25/23 17:05 ITCHING/REDNESS resorcinol AdvReac Mild VAGINAL Verified 03/25/23 17:05 REDNESS/ITCHING trazodone AdvReac Unknown GROSS Verified 03/25/23 17:05 Review of Systems Review of Systems: CONSTITUTIONAL: Denies chills, or sweats.+ fever, body aches EYES: Denies visual changes, redness, or discharge. ENT: Denies rhinorrhea, sore throat.+ bilateral ear pressure, congestion CARDIOVASCULAR: Denies chest pain, palpitations, or edema. RESPIRATORY: Denies dyspnea.+ cough GASTROINTESTINAL: Denies abdominal pain, nausea, vomiting, or diarrhea. GENITOURINARY: Denies dysuria or hematuria. SKIN: Denies rash, itching, or wounds. MUSCULOSKELETAL: Denies back pain, joint pain, or myalgia. NEUROLOGIC: Denies headache, numbness, tingling, or weakness. PSYCH: Denies depression or anxiety. [facility] Past Medical History Medical History Abnormal uterine bleeding Anxiety Chronic headache History of anxiety History of depression History of ear pain History of ovarian cyst IBS (irritable bowel syndrome) Left hip pain Low body mass index (BMI) Pelvic pain Scoliosis Surgical History Surgical History History of cholecystectomy History of hysterectomy History of removal of ovarian cyst History of tonsillectomy and adenoidectomy Hx of toe surgery Rt great toe. Family History Family History Other Arthritis Depression Diabetes mellitus Heart disease Hypertension Kidney disorder Social History Social History Tobacco type: e-cigarettes/vaping Alcohol intake: current Substance use: never Living arrangements: with family Gender identity (if verbalized by the patient): Female Comments At time of signature, I have reviewed and agree with nursing past medical, surgical, social and family history unless otherwise noted. Please see nursing chart for further information. There is no relevant family history pertinent to the presenting complaint Exam Narrative: GENERAL: Mildly ill-appearing, well-nourished, and in no acute distress. HEAD: Normocephalic, atraumatic. EYES: EOMI. No redness or drainage. Conjunctivae normal. ENT: Mucous membranes pink and moist. Nares congested. No rhinorrhea. Bilateral nasal turbinates are edematous. TMs normal bilaterally. Throat normal. Uvula midline. NECK: Normal AROM. Supple. No lymphadenopathy. CHEST: No respiratory distress. Clear to auscultation. HEART: Regular rate and rhythm. No murmur appreciated. EXTREMITIES: Normal range of motion. No edema. SKIN: Warm, dry, no rash. Capillary refill normal. Normal skin turgor. NEURO: No focal deficits. Alert and oriented x3. Gait steady.
== END 2023-04-15 12:09 | disposition home or self-care (01) ==
PROVIDERS: Emergency Provider Nurse Practitioner; PCP Family Medicine
DX: B34.9 Viral infection, unspecified (principal); Z20.822 Contact with and (suspected) exposure to COVID-19; F17.290 Nicotine dependence, other tobacco product, uncomplicated; M41.9 Scoliosis, unspecified
CPT/HCPCS: 87426; 87804; 99213; G0463

== ENCOUNTER 2023-08-30 09:08 | Emergency (ER) | payer OTHER, SELFPAY ==
--- NOTE | 2023-08-30 09:13 | ED.URI ---
HPI - URI/Sore Throat General Chief Complaint: Upper Respiratory Infection Stated Complaint: COVID+ Time Seen by Provider: 08/30/23 09:13 Source: patient Mode of arrival: ambulatory Limitations: no limitations History of Present Illness HPI Narrative: Angeli is a 28-year-old female patient presenting to the clinic today with complaints of positive for COVID. She reports she is referring nasal congestion, body aches, and chills. States she had a fever yesterday. Symptoms started Wednesday of last week. Denies any chest pain or shortness of breath. MD elicited complaint: nasal congestion Related Data Allergies Allergy/AdvReac Type Severity Reaction Status Date / Time azithromycin Allergy Severe N/V; HIVES Verified 08/30/23 09:32 lavender (Lavandula Allergy Severe HIVES Verified 08/30/23 09:32 angustifolia) oxycodone Allergy Severe HIVES Verified 08/30/23 09:32 pumpkin Allergy Severe HIVES Verified 08/30/23 09:32 benzocaine AdvReac Mild VAGINAL Verified 08/30/23 09:32 ITCHING/REDNESS mineral oil AdvReac Mild VAGINAL Verified 08/30/23 09:32 ITCHING/REDNESS resorcinol AdvReac Mild VAGINAL Verified 08/30/23 09:32 REDNESS/ITCHING trazodone AdvReac Unknown GROSS Verified 08/30/23 09:32 Review of Systems Review of Systems: Pertinent positives per HPI. Patient denies any fever, chills, rash, headache, visual changes, dizziness, sore throat, shortness of breath, chest pain, palpitations, nausea, vomiting, diarrhea, constipation, abdominal pain, or any urinary issues. [facility] Past Medical History Medical History Abnormal uterine bleeding Anxiety Chronic headache History of anxiety History of depression History of ear pain History of ovarian cyst IBS (irritable bowel syndrome) Left hip pain Low body mass index (BMI) Pelvic pain Scoliosis Surgical History Surgical History History of cholecystectomy History of hysterectomy History of removal of ovarian cyst History of tonsillectomy and adenoidectomy Hx of toe surgery Rt great toe. Family History Family History Father Alcoholism Hypertension Mother Heart disease Depression Sibling Depression Heart disease Grandparent Alcoholism Other Arthritis Diabetes mellitus Kidney disorder Social History Social History Social History: Patient is very confident filling out medical forms Smoking status: Current every day smoker (vapes since 2019) Tobacco type: e-cigarettes/vaping Alcohol intake: current Substance use: never Do You Feel Safe in your Home?: Yes Lack of Transportation: No Lack of Food: Never True Current Housing: I Have Housing Concerned About Future Housing: No Difficulty Paying Gas/Electric Bills: No Difficulty Paying for Meds: No Currently Unemployed: No Education: High School Diploma/GED Difficulty w/ Childcare or Family Care: No Living arrangements: with family Additional living arrangements comments: Occupation/Education: occupation 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 There is no relevant family history pertinent to the patient complaint. Exam Narrative: General: Well-developed, well nourished, in no apparent distress Head: Normocephalic, atraumatic Eyes: Pupils equally round and reactive to light bilaterally, EOM intact, sclera and conjunctive clear, no discharge, lids normal Ears: TMs intact and congested, ear canals clear, no drainage, grossly hearing normal. Nose: Nares patent, clear nasal discharge,
[2023-08-30 09:29] VITALS: BP 116/74; PULSE 101; RESP 18; TEMP 36.9; O2SAT 100
== END 2023-08-30 09:44 | disposition home or self-care (01) ==
PROVIDERS: Emergency Provider Nurse Practitioner Family; PCP Nurse Practitioner Family
DX: U07.1 COVID-19 (principal); F17.290 Nicotine dependence, other tobacco product, uncomplicated; F41.9 Anxiety disorder, unspecified; F32.A Depression, unspecified
CPT/HCPCS: 87426; 99213; G0463

== ENCOUNTER 2023-10-12 11:37 | Emergency (ER) | payer OTHER, SELFPAY ==
[2023-10-12 11:43] VITALS: BP 106/77; PULSE 94; RESP 16; TEMP 36.6; O2SAT 100
--- NOTE | 2023-10-12 12:22 | ED.GENADULT ---
HPI - General Adult General Chief complaint: Nausea/Vomiting/Diarrhea Stated complaint: Nausea Source: patient Mode of arrival: ambulatory Limitations: no limitations History of Present Illness HPI narrative: Patient presents for evaluation of nausea, vomiting, diarrhea since yesterday. She denies any fever, chills, abdominal pain or respiratory symptoms. 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 One of residence there has COVID but she has not been directly exposed to her knowledge. She is taking Tylenol and ibuprofen for her symptoms with some improvement thereafter. She was sent home from work today and is requesting a work note. Related Data Allergies Allergy/AdvReac Type Severity Reaction Status Date / Time azithromycin Allergy Severe N/V; HIVES Verified 10/12/23 11:48 lavender (Lavandula Allergy Severe HIVES Verified 10/12/23 11:48 angustifolia) oxycodone Allergy Severe HIVES Verified 10/12/23 11:48 pumpkin Allergy Severe HIVES Verified 10/12/23 11:48 benzocaine AdvReac Mild VAGINAL Verified 10/12/23 11:48 ITCHING/REDNESS mineral oil AdvReac Mild VAGINAL Verified 10/12/23 11:48 ITCHING/REDNESS resorcinol AdvReac Mild VAGINAL Verified 10/12/23 11:48 REDNESS/ITCHING trazodone AdvReac Unknown GROSS Verified 10/12/23 11:48 Review of Systems Review of Systems: CONSTITUTIONAL: Denies fever, chills, or sweats. EYES: Denies visual changes, redness, or discharge. ENT: Denies rhinorrhea, congestion, sore throat, or otalgia. CARDIOVASCULAR: Denies chest pain, palpitations, or edema. RESPIRATORY: Denies cough or dyspnea. GASTROINTESTINAL: Reports nausea, vomiting, diarrhea. Denies abdominal pain GENITOURINARY: Denies dysuria or hematuria. SKIN: Denies rash or itching. MUSCULOSKELETAL: Denies back pain, joint pain, or myalgia. NEUROLOGIC: Denies headache, numbness, dizziness, or weakness. PSYCHIATRIC: Denies anxiety or depression. [facility] Past Medical History Medical History Abnormal uterine bleeding Anxiety Chronic headache Diarrhea History of anxiety History of depression History of ear pain History of ovarian cyst IBS (irritable bowel syndrome) Left hip pain Low body mass index (BMI) Pelvic pain Scoliosis Surgical History Surgical History History of cholecystectomy History of hysterectomy History of removal of ovarian cyst History of tonsillectomy and adenoidectomy Hx of toe surgery Rt great toe. Family History Family History Father Alcoholism Hypertension Mother Heart disease Depression Sibling Depression Heart disease Grandparent Alcoholism Other Arthritis Diabetes mellitus Kidney disorder Social History Social History Social History: Patient is very confident filling out medical forms Smoking status: Current every day smoker (vapes since 2019) Tobacco type: e-cigarettes/vaping Alcohol intake: current Substance use: never Do You Feel Safe in your Home?: Yes Lack of Transportation: No Lack of Food: Never True Current Housing: I Have Housing Concerned About Future Housing: No Difficulty Paying Gas/Electric Bills: No Difficulty Paying for Meds: No Currently Unemployed: No Education: High School Diploma/GED Difficulty w/ Childcare or Family Care: No Living arrangements: with family Additional living arrangements comments: Occupation/Education: occupation 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 HEAD: Normocephalic, atraumatic. EYES: PERRLA and EOMI. ENT: Nares clear, no rhinorrhea or epistaxi
[2023-10-13 11:36] LABS: EDINFLUASCREEN Negative; EDINFLUBSCREEN Negative
== END 2023-10-12 12:24 | disposition home or self-care (01) ==
PROVIDERS: Emergency Provider Nurse Practitioner; PCP Nurse Practitioner Family
DX: B34.9 Viral infection, unspecified (principal); Z20.822 Contact with and (suspected) exposure to COVID-19; F17.290 Nicotine dependence, other tobacco product, uncomplicated; F41.9 Anxiety disorder, unspecified; F32.A Depression, unspecified
CPT/HCPCS: 87426; 87804; 99213; G0463

== ENCOUNTER 2023-11-25 08:26 | Emergency (ER) | payer OTHER, SELFPAY ==
[2023-11-25 08:31] VITALS: BP 115/72; PULSE 95; RESP 18; TEMP 36.9; O2SAT 97
[2023-11-25 08:47] VITALS: BP 115/72; O2SAT 97
[2023-11-25] MEDS: ONDANSETRON HCL ODT 4 MG TABLET PO (09:06)
[2023-11-25 09:07] LABS: Basophils Percent Auto 0.3 % (0.2-1.2); Eosinophils Percent Auto 0.1 % (0-4.4); Hematocrit 41.4 % (37.0-47.0); Hemoglobin 14.1 g/dL (12.0-15.0); Immature Granulocyte Absolute 0.02 K/mm3 (0.00-0.031); Immature Granulocyte Percent A 0.3 % (0-0.5); Lymphocytes Absolute Auto 0.94 K/mm3 (0.9-3.2); Lymphocytes Percent Auto 13.9 % (18.3-44.2); Mean Corpuscular HGB Conc 34.1 g/dl (32-36); Mean Corpuscular Hemoglobin 30.3 pg (26-34); Mean Corpuscular Volume 88.8 fl (80-100); Mean Platelet Volume 11.4 fl (7.4-10.4); Monocytes Absolute Auto 0.4 K/mm3 (0.1-0.6); Monocytes Percent Auto 6.1 % (2.6-8.5); Neutrophils Absolute Auto 5.3 K/mm3 (1.3-6.7); Neutrophils Percent Auto 79.3 % (45.5-73.1); Platelet Count Result 168 k/mm3 (150-375); Red Blood Count 4.66 M/mm3 (4.2-5.4); Red Cell Distribution Width 11.8 % (11.5-14.5); White Blood Count 6.7 K/mm3 (4.5-10.0)
[2023-11-25 09:20] LABS: Alanine Aminotransferase 16 U/L (6-35); Albumin Level 4.4 g/dL (3.5-5.1); Alkaline Phosphatase 60 U/L (38-126); Anion Gap 12 mmol/L (4-12); Aspartate Amino Transferase 22 U/L (14-36); Bilirubin,Total 0.8 mg/dL (0.2-1.3); Blood Urea Nitrogen 18 mg/dL (7-17); Calcium 9.3 mg/dL (8.4-10.2); Carbon Dioxide 22 mmol/L (22-30); Chloride 102 mmol/L (98-107); Estimated CRCL calculation 87 ml/min; Estimated Glomerular Filt Rate > 60; Glucose 158 mg/dL (65-110); Magnesium 2.1 mg/dL (1.6-2.3); Potassium 3.7 mmol/L (3.4-5.0); Sodium 136 mmol/L (137-145)
[2023-11-25 09:32] VITALS: BP 105/78
[2023-11-25 09:46] VITALS: BP 101/71; PULSE 82; RESP 18; O2SAT 100
--- NOTE | 2023-11-25 09:52 | ED.GENADULT ---
HPI - General Adult General Chief complaint: Unspecified Stated complaint: alise is spassing up Time Seen by Provider: 11/25/23 08:30 History of Present Illness HPI narrative: Patient states 3 d ago she was having a migraine and called in to work; feels better today, no more migraine, but slightly nauseous and some tingling to both hands/feet and feels tired/weak. Related Data Allergies Allergy/AdvReac Type Severity Reaction Status Date / Time azithromycin Allergy Severe N/V; HIVES Verified 11/25/23 08:58 lavender (Lavandula Allergy Severe HIVES Verified 11/25/23 08:58 angustifolia) oxycodone Allergy Severe HIVES Verified 11/25/23 08:58 pumpkin Allergy Severe HIVES Verified 11/25/23 08:58 benzocaine AdvReac Mild VAGINAL Verified 11/25/23 08:58 ITCHING/REDNESS mineral oil AdvReac Mild VAGINAL Verified 11/25/23 08:58 ITCHING/REDNESS resorcinol AdvReac Mild VAGINAL Verified 11/25/23 08:58 REDNESS/ITCHING trazodone AdvReac Unknown GROSS Verified 11/25/23 08:58 Review of Systems Review of Systems: All systems reviewed & are unremarkable except as noted in HPI and below PMFSH Past Medical History Medical History Abnormal uterine bleeding Anxiety Chronic headache Diarrhea History of anxiety History of depression History of ear pain History of ovarian cyst IBS (irritable bowel syndrome) Left hip pain Low body mass index (BMI) Pelvic pain Scoliosis Surgical History Surgical History History of cholecystectomy History of hysterectomy History of removal of ovarian cyst History of tonsillectomy and adenoidectomy Hx of toe surgery Rt great toe. Family History Family History Father Alcoholism Hypertension Mother Heart disease Depression Sibling Depression Heart disease Grandparent Alcoholism Other Arthritis Diabetes mellitus Kidney disorder Social History Social History Social History: Patient is very confident filling out medical forms Smoking status: Current every day smoker (vapes since 2019) Tobacco type: e-cigarettes/vaping Alcohol intake: current Substance use: never Do You Feel Safe in your Home?: Yes Lack of Transportation: No Lack of Food: Never True Current Housing: I Have Housing Concerned About Future Housing: No Difficulty Paying Gas/Electric Bills: No Difficulty Paying for Meds: No Currently Unemployed: No Education: High School Diploma/GED Difficulty w/ Childcare or Family Care: No Living arrangements: with family Additional living arrangements comments: Occupation/Education: occupation 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 EYES: EOMI, conjunctiva normal ENT: Hearing grossly intact LUNGS: Nonlabored breathing. HEART: [Regular rate and rhythm] ABD: [Soft], [nontender to palpation] EXT: Normal range of motion SKIN: [No rashes or lesions.] NEURO: [Alert and oriented x 3. No gross focal sensory or strength deficits.] PSYCH: Normal affect Course Vital Signs Vital signs: Vital Signs Temperature 98.4 F 11/25/23 08:31 Pulse Rate 95 11/25/23 08:31 Respiratory Rate 18 11/25/23 08:31 Blood Pressure 115/72 11/25/23 08:31 Pulse Oximetry 97 11/25/23 08:31 Oxygen Delivery Room Air 11/25/23 08:31 Temperature 98.4 F 11/25/23 08:31 Pulse Rate 82 11/25/23 09:46 Respiratory Rate 18 11/25/23 09:46 Blood Pressure 101/71 11/25/23 0
== END 2023-11-25 09:59 | disposition home or self-care (01) ==
PROVIDERS: Emergency Provider Emergency Medicine; PCP Nurse Practitioner Family
DX: R53.1 Weakness (principal); K58.9 Irritable bowel syndrome, unspecified; F17.290 Nicotine dependence, other tobacco product, uncomplicated; Z90.49 Acquired absence of other specified parts of digestive tract; Z90.710 Acquired absence of both cervix and uterus
CPT/HCPCS: 36415; 80053; 83735; 85025; 99283; A9270

== ENCOUNTER 2024-04-01 08:59 | Emergency (ER) | payer OTHER, SELFPAY ==
--- OUTSIDE RECORDS SUMMARY | 2024-04-01 09:01 | XMS_ITS | Clinical Summary ---
Author Organization [facility] Address [address] [place] [address] Care Team Providers Care Child Care Group Leader Name Role Phone Abram Chairez MD Primary Care Provider Mahi hyde Medications No known medications Family History Medical History Relation Name Comments Alcohol Abuse Father Anxiety disorder Mother Depression Mother Drug Abuse Sister 1 Anxiety disorder Sister 2 Depression Sister 2 Anxiety disorder Sister 3 Depression Sister 3 Relation Name Status Comments Father Alive Mother Alive Sister 1 Alive Sister 2 Alive Sister 3 Alive Social History Tobacco Use Types Packs/Day Years Used Date Smoking Tobacco: Never Smokeless Tobacco: Never Alcohol Use Standard Drinks/Week Comments Never 0 (1 standard drink = 0.6 oz pur e alcohol) Sexually Active Control Partners Comments Yes Male Comments Unknown Sex and Gender Information Value Date Recorded Sex Assigned at Not on file Legal Sex Female 10:42 AM CDT Gender Identity Not on file Sexual Orientation Not on file Plan of Treatment Health Maintenance Due Date Last Done Comments Hepatitis C Virus (HCV) Screening 1993 Pap Smear 2014 Cervical Cancer Screening (CCS) 06/21/2023 HPV/Cotest 06/21/2023 Influenza Immunization (#1) 2023 SARS-COV-2 Immunization ( season) 2023 Respiratory Syncytial Virus (RSV) Immunization (Adult) (1 - 1-dose 75+ series) 2068 Hepatitis B Immunization Completed 995, 06/25/1994, 1993, Additional history exists DTaP/Tdap/Td Immunization Discontinued 2015, 09/28/1998, 04/16/1995, Additional history exists TdaP Immunization Completed 03/15/2015 Meningococcal Immunization (ACWY) Aged Out No longer eligible based on patient's age to complete this topic Pneumococcal Immunization Combined Aged Out No longer eligible based on patient's age to complete this topic Rotavirus Immunization Aged Out No lo nger eligible based on patient's age to complete this topic Goals Goal Patient Goal Type Associated Problems Recent Progress Patient-Stated? Author Behavioral Health Behavioral Health Yes Daniel James PSYD Note: Patient would like to be able to control her emotions better, so that when she is triggered she does not react so emotionally. She wishes to be able to deal with her responsibilities as a mother with a more even temperament. Behavioral Health Behavioral Health No Daniel James PSYD Note: Patient will reduce acuity of traumatic symptoms, including flashbacks and avoidance behaviors. Insurance [employer] on file MEDICAID [facility] Care Teams Child Care Group Leader Relationship Specialty Start Date End Date Abram Chairez MD PCP - General Family Medicine 11/04/21
--- OUTSIDE RECORDS SUMMARY | 2024-04-01 09:01 | XMS_ITS | Referral Summary ---
Author Organization [address] Address [address] [place] [id number] Care Team Providers Care Assembler [employer] Name Role Phone Abram Chairez MD Primary Care Provid er Allergies Active Allergy Reactions Criticality Noted Date Comments Azithromycin Hives,Vomiting Medium 07/03/2015 Hives Benzalkonium Chloride Hives Medium 01/17/2018 DIAL SOAP Erythromycin Hives,Vomiting Medium 12/21/2016 Lavender Oil Hives Medium 07/03/2015 Hives Oxycodone Hives Medium 09/24/2017 Pumpkin Seed Hives Medium 12/06/2017 Sumatriptan Other (See comments) Low 05/26/2018 Severe HTN Tioconazole Redness Low 12/21/2016 OTHER NAME: VAGISTAT Trazodone Headache Low 03/10/2011 Headache Medications ibuprofen (ADVIL,MOTRIN) 600 mg tablet Take 1 tablet (600 mg total) by mouth 3 (three) times a day as needed for pain 2 Active Lactobacillus acidophilus (PROBIOTIC ACIDOPHILUS ORAL) Take by mouth Active butalbital-acetam inophen-caffeine (ESGIC) 50-325-40 mg per tabletIndications :Intractable chronic migraine without aura and without status migrainosus Take 1 tablet by mouth every 4 (four) hours as needed for migraine 40 tablet 2 3 Active fluticasone propionate (FLONASE) 50 mcg/actuation nasal sprayIndications: Acute non-recurrent pansinusitis Administer 2 sprays into each nostril daily 1 each 3 Active dextromethorphan- guaifenesin 5-100 mg/5 mL liquidIndications :Acute non-recurrent pansinusitis Take 10 mL by mouth 2 (two) times a day 237 mL 3 Active Active Problems Problem Noted Date Diagnosed Date Severe episode of recurrent major depressive disorder, without psychotic features 06/17/2021 Assessment & Plan (06/17/2021 1:33 PM CDT): Patient reiterated no suicidal thoughts at this time; contact 911 and go to the ER if becomes suicidal zoloft 50 mg daily- start 1/2 tab for 4 days take medication as directed discussed side effects of medication with patient encouraged healthy diet and exercise encouraged patient to see a counselor-list given use support structures you have in place consider meditation-look at Calm alison try to work on healthy sleep habits If mood worsens or changes, please contact the office Anything emergent, to the er Migraine with aura and witho ut status migrainosus, not intractable 01/22/2020 Anxiety 12/15/2016 Assessment & Plan (06/17/2021 1:34 PM CDT): Will restart atarax Will have her follow up in 2 weeks Will start zoloft Work on healthy changes for her mood Update me with any changes or concerns Call for questions Immunizations Name Administration Dates Next Due DT 09/28/1998 DTP / HiB 04/16/1995,01/22/1994,1993 ,1993 Hep B, Adolescent or Pediatric 06/25/1994,1993,1993 Hep B, Unspecified 06/25/1994,1993, 994 Influenza, Unspecified 10/29/2022(Deferr ed: Patient ill today),02/04/2022(Deferred: Patient Refused),12/17/2021(Deferred: Patient decision),02/04/2021(Deferred: Patient Refused),11/15/2020(Deferred: Patient decision),12/07/2019(Deferred: Patient Refused) MMR 09/28/1998,06/25/1994 OPV 09/28/1998,01/22/1994,1993 ,1993 OPV, Unspecified 09/28/1998,01/22/1994, 4,1993 Tdap 03/15/2015 Social History Tobacco Use Types Packs/Day Years Used Date Smoking Tobacco: Every Day Vaping Smokeless Tobacco: Never Tobacco Cessation:Ready to Q uit: Not Asked; Counseling Given: Not Answered AUDIT-C Answer Date Recorded Q1: How often do you have a drink containing alcohol? Never 10/29/2022 Q2: How many drinks containi ng alcohol do you have on a typical day when you are drinking? Patient does not drink Q3: How often do you have si x or more drinks on one occasion? 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 Gender Identity Not on file Sexual Orientation Not on file Last Filed Vital Signs Vital Sign Reading Time Taken Comments Blood Pressure 112/74 10/29/2022 10:59 AM CDT Pulse 92 10/29/2022 10:59 AM CDT Temperature 36.4 C (97.6 F) 10/29/2022 10:59 AM CDT Respiratory Rate 20 10/29/2022 10:59 AM CDT Oxygen Saturation 97% 10/29/2022 10:59 AM CDT Inhaled Oxygen Concentration - - Weight 54.4 kg (120 lb) 10/29/2022 10:59 AM CDT Height 182.9 cm (6') 10/29/2022 10:59 AM CDT Body Mass Index 16.27 10/29/2022 10:59 AM CDT Plan of Treatment Not on file Insurance [facility] Care Teams Assembler [employer] Relationship Specialty Start Date End Date Abram Chairez MD [address] [place] [address] PCP - General Family Medicine 08/30/20
--- OUTSIDE RECORDS SUMMARY | 2024-04-01 09:01 | XMS_ITS | Clinical Summary ---
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 Gender Identity Not on file Sexual Orientation Not on file Obstetrics History Last Filed Vital Signs Vital Sign Reading [...] 10/29/2022 10:59 AM CDT Plan of Treatment Health Maintenance Due Date Last Done Comments Hepatitis C Screening 1993 Pneumococcal vaccine <65 (1 of 2 - PCV) 06/21/1999 Regular Well Visit/Exam 18-64 06/21/2011 Covid-19 Vaccine ( season) 2023 12/25/2021, 12/04/2021 Influenza Vaccine (#1) 2023 Depression Screening 10/30/2023 10/29/2022, 09/11/2022, 09/11/2022, Additional history exists DTaP/Tdap/Td Vaccine (7 - Td or Tdap) 03/15/2025 03/15/2015, 09/28/1998, 04/16/1995, Additional history exists HPV Vaccines Aged Out No longer eligi ble based on patient's age to complete this topic Varicella Vaccines Discontinued Insurance [facility] Care Teams Drug Abuse Counselor Relationship Specialty Start Date End Date Abram Chairez MD [address] [place] [address] PCP - General Family Medicine 08/30/20
[2024-04-01 09:02] VITALS: BP 107/89; PULSE 96; RESP 16; TEMP 36.3; O2SAT 99
--- OUTSIDE RECORDS SUMMARY | 2024-04-01 09:18 | XMS_ITS | Clinical Summary ---
Author Organization [facility] Address [address] [place] [address] Care Team Providers Care Coat Room Attendant Name Role Phone Buddy Stone MD Unavailable Allergies Active Allergy Reactions Criticality Noted Date Comments Erythromycin Hives,Vomiting Low 12/21/2016 Lavender Oil Hives Low 06/17/2017 Oxycodone Hives Low 09/24/2017 Pumpkin Seed Hives Low 12/06/2017 Benzalkonium Chloride Atopic Dermatitis 018 DIAL SOAP Sumatriptan Other (see comment) 05/26/2018 Severe HTN Trazodone & Diet Manage Prod Headache Medium 017 Tioconazole Redness Low 12/21/2016 Azithromycin Hives,Vomiting Low 12/21/2016 Medications SUMAtriptan (IMITREX) 50 MG tabletIndication s:Migraine with aura and without status migrainosus, not intractable Take 1 tablet (50 mg total) by mouth 2 (two) times daily as needed for Migraine. Max of 4 tablets (200 mg) in 24 hours. 30 tablet 2 01/22/2020 Active Active Problems Problem Noted Date Diagnosed Date Migraine with aura and witho ut status migrainosus, not intractable 01/22/2020 Acute pain of right knee 08/28/2019 Closed boxer's fracture 07/07/2019 Acute bilateral low back pain 05/30/2019 Tobacco use 12/06/2017 Chest pain 11/24/2017 Cough 10/21/2017 Body aches 10/11/2017 Sore throat 10/11/2017 Itching 09/24/2017 Pain of right sacroiliac joint 09/22/2017 Spasm of right piriformis muscle 09/22/2017 Tennis elbow 05/26/2017 Lower urinary tract symptoms 05/20/2017 Rash 05/20/2017 Abdominal pain 05/20/2017 Iliotibial band syndrome of right side 8 Left wrist pain 04/26/2017 Pain, elbow 04/26/2017 Concussion 04/13/2017 Insomnia 04/13/2017 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, vermilion border 04/13/2017 Pharyngitis 03/31/2017 Peripheral vertigo 01/13/2017 Orthostatic hypotension 12/21/2016 Anxiety 12/15/2016 Acute bronchitis, unspecified organism 7 Chondromalacia, knee, right 11/10/2016 Patellofemoral pain syndrome 12/02/2015 Anorexia 10/16/2015 Common migraine without aura 04/16/2015 Acute sinusitis 09/07/2014 Dizziness Syncope Hypotension Precordial chest pain Resolved Problems Problem Noted Date Diagnosed Date Resolved Date Annual physical exam 07/02/2014 020 Chest pain 12/06/2017 Immunizations Name Administration Dates Next Due DT (Generic) 09/28/1998 Dtp/Hib 04/16/1995,01/22/1994,1993 ,1993 Hepatitis B 06/25/1994,1993,1993 Influenza Adult (Generic) 01/11/2018(Def erred: Patient Refused),11/16/2016(Deferred: Patient Refused) MMR 09/28/1998,06/25/1994 Opv 09/28/1998,01/22/1994,1993 ,1993 Tdap (Boostrix) 03/15/2015 Family History Medical History Relation Comments Stroke Maternal Grandmother Diabetes Mother Hypertension Mother Kidney Disease Mother Valve Disease Mother cervical ca Mother Diabetes Other Hypertension Other Seizures Other alzheimers Other cardiac disorder Other Heart Attack Paternal Grandfather Heart Attack Paternal Grandmother Seizures Sister Stroke Sister Relation Status Comments Father Alive Maternal Grandfather (Age 63) Maternal Grandmother (Age 83) Mother Alive Other Alive Paternal Grandfather (Age 68) Paternal Grandmother (Age 76) Sister Alive Social History Tobacco Use Types Packs/Day Years Used Date Smoking Tobacco: Every Day Cigarettes 0.3 20.1 Started: 2004 Smokeless Tobacco: Current Tobacco Cessation:Ready to Q uit: No; Counseling Given: Yes Comments:Uses Juul Alcohol Use Standard Drinks/Week Comments Yes 0 (1 standard drink = 0.6 oz pur e alcohol) OCCAS PHQ-2 Answer Date Recorded PHQ-2 Score - If the patient scores above 3, please move on to questions 3-9 0 01/22/2020 Comments No Sex and Gender Information Value Date Recorded Sex Assigned at Not on file Legal Sex Female 8:30 AM CDT Gender Identity Not on file Sexual Orientation Not on file Occupation Industry Job Start Date Job End Date Not on file Not on file Not on file Not on file Last Filed Vital Signs Vital Sign Reading Time Taken Comments Blood Pressure 110/60 01/22/2020 1:03 PM 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 HOTEL Pulse 103 01/22/2020 1:03 PM 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 HOTEL Temperature 36.5 C (97.7 F) 01/22/2020 1:03 PM 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 HOTEL Respiratory Rate 16 01/22/2020 1:03 PM 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 HOTEL Oxygen Saturation 98% 01/22/2020 1:03 PM 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 HOTEL Inhaled Oxygen Concentration - - Weight 50.8 kg (112 lb) 01/22/2020 1:03 PM 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 HOTEL Height 182.9 cm (6') 01/22/2020 1:03 PM 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 HOTEL Body Mass Index 15.19 01/22/2020 1:03 PM 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 HOTEL Plan of Treatment Health Maintenance Due Date Last Done Comments Pneumococcal Vaccine: Pediatrics (0 to 5 Years) and At-Risk Patients (6 to 64 Years) (1 of 2 - PCV) 06/21/1999 Annual Physical 10/11/2020 10/12/2019 COVID-19 Vaccine ( - 2023- season) 2023 Influenza Adult (#1) 2023 DTaP, Tdap and Td Vaccines (2 - Td or Tdap) 03/15/2025 03/15/2015, 09/28/1998, 04/16/1995, Additional history exists Hepatitis B Vaccines Completed 06/25/1994, 1993, 1993 Hepatitis C Completed 05/04/2018 HPV Vaccines Aged Out No longer eligi ble based on patient's age to complete this topic Meningococcal B Vaccine Aged Out No l onger eligible based on patient's age to complete this topic Meningococcal Vaccine Aged Out No carlyn mercedes eligible based on patient's age to complete this topic RSV Immunizations Under 20 Months Aged Out No longer eligible based on patient's age to complete this topic Procedures Procedure Name Priority Date/Time Associated Diagnosis Comments HEPATITIS PANEL,ACUTE Routine 05/04/2018 11:27 AM CDT STD exposure from Last 3 Months or Most Recently Relevant to Health Maintenance Results * HEPATITIS PANEL,ACUTE (05/04/2018 11:27 AM CDT) HEPATITIS B SURFACE AG NON-REACTI VE NON-REACTI VE 05/04/2018 9:47 PM CDT [facility] HEP B CORE IGM NON-REACTI VE NON-REACTI VE 05/04/2018 10:05 PM CDT [facility] HAV IGM NON-REACTI VE NON-REACTI VE 05/04/2018 10:08 PM CDT [facility] HEPATITIS C AB NON-REACTI VE NON-REACTI VE 05/04/2018 10:05 PM CDT [facility] 05/04/2018 11:2 7 AM CDT Tressa Anderson MD LABORATORY Final Result [facility] [address] [place] [address], from Last 3 Months or Most Recently Relevant to Health Maintenance Insurance Care Teams Coat Room Attendant Relationship Specialty Start Date End Date Buddy Stone MD [facility] [address] [place] [address] Patricia Refining Machine Operator CARDIOVASCULAR DISEASE 01/06/17
[2024-04-01 09:20] VITALS: BP 102/80; BP 116/80; BP 116/84; PULSE 121; PULSE 57; PULSE 77
[2024-04-01 09:25] LABS: BEDSIDEPREGUCG Negative (Negative)
[2024-04-01] MEDS: ONDANSETRON INJ 4 MG/2 ML VIAL IV PUSH (09:26)
[2024-04-01] MEDS: SODIUM CHLORIDE 0.9% IV 1,000 ML 999 ML IV CONT (09:27)
[2024-04-01 09:32] LABS: Alanine Aminotransferase 19 U/L (6-35); Albumin Level 4.9 g/dL (3.5-5.1); Alkaline Phosphatase 80 U/L (38-126); Anion Gap 15 mmol/L (4-12); Aspartate Amino Transferase 22 U/L (14-36); Bilirubin,Total 0.9 mg/dL (0.2-1.3); Blood Urea Nitrogen 11 mg/dL (7-17); Calcium 9.5 mg/dL (8.4-10.2); Carbon Dioxide 23 mmol/L (22-30); Chloride 100 mmol/L (98-107); Estimated CRCL calculation 91 ml/min; Estimated Glomerular Filt Rate > 60; Glucose 89 mg/dL (65-110); Lipase 48 U/L (23-300); Potassium 4.1 mmol/L (3.4-5.0); Sodium 138 mmol/L (137-145)
[2024-04-01 09:44] LABS: Basophils Percent Auto 0.3 % (0.2-1.2); Hematocrit 47.6 % (37.0-47.0); Hemoglobin 15.7 g/dL (12.0-15.0); Immature Granulocyte Absolute 0.05 K/mm3 (0.00-0.031); Immature Granulocyte Percent A 1.3 % (0-0.5); Lymphocytes Percent Auto 16.1 % (18.3-44.2); Mean Corpuscular Hemoglobin 30.1 pg (26-34); Mean Corpuscular Volume 91.2 fl (80-100); Mean Platelet Volume 11.8 fl (7.4-10.4); Monocytes Absolute Auto 0.5 K/mm3 (0.1-0.6); Monocytes Percent Auto 12.9 % (2.6-8.5); Neutrophils Absolute Auto 2.6 K/mm3 (1.3-6.7); Neutrophils Percent Auto 69.4 % (45.5-73.1); Platelet Count Result 165 k/mm3 (150-375); Red Blood Count 5.22 M/mm3 (4.2-5.4); Red Cell Distribution Width 11.9 % (11.5-14.5); White Blood Count 3.7 K/mm3 (4.5-10.0)
[2024-04-01 09:54] LABS: Influenza A QL RT-PCR Negative (Negative); Influenza B QL RT-PCR Negative (Negative); RSV RNA, RT-PCR Negative (Negative); SARS-CoV-2 RNA PCR Negative (Negative)
[2024-04-01 09:55] LABS: Add Urine Microscopic? YES; Appearance Urine Cloudy (Clear); Bacteria Urine 4+ /hpf; Bilirubin Urine Negative (Negative); Blood Urine Trace (Negative); Color Urine Yellow (Yellow); Glucose Urine UA Negative (Negative); Ketones Urine 4+ mg/dL (Negative); Leukocyte Esterase Ur Negative LEU/UL (Negative); Need Manual Microscopic Reviewed; Nitrate Urine Negative (Negative); Protein Urine 1+ mg/dL (Negative); Specific Grav Ur 1.029 (1.001-1.035); Squamous Epithelial Cell Urine Many /hpf (Few); pH Urine 5.5 (5.0-9.0)
--- NOTE | 2024-04-01 10:09 | ED_ITS ---
HPI - General Adult General Chief complaint: Nausea/Vomiting/Diarrhea Stated complaint: vomiting since Time Seen by Provider: 04/01/24 09:03 History of Present Illness HPI narrative: Patient is a 28-year-old female who presents to the ER with vomiting for 3 days. Associated with loose stools and abdominal soreness from vomiting. Cannot identify aggravating or alleviating factors. 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 No syncope or dizziness. Related Data Allergies Allergy/AdvReac Type Severity Reaction Status Date / Time azithromycin Allergy Severe N/V; HIVES Verified 04/01/24 09:24 lavender (Lavandula Allergy Severe HIVES Verified 04/01/24 09:24 angustifolia) oxycodone Allergy Severe HIVES Verified 04/01/24 09:24 pumpkin Allergy Severe HIVES Verified 04/01/24 09:24 benzocaine AdvReac Mild VAGINAL Verified 04/01/24 09:24 ITCHING/REDNESS mineral oil AdvReac Mild VAGINAL Verified 04/01/24 09:24 ITCHING/REDNESS resorcinol AdvReac Mild VAGINAL Verified 04/01/24 09:24 REDNESS/ITCHING trazodone AdvReac Unknown GROSS Verified 04/01/24 09:24 Review of Systems 2 Review of Systems: All systems reviewed & are unremarkable except as noted in HPI and below Constitutional: Constitutional: Reports no additional constitutional complaints Cardiovascular: Cardiovascular: Reports no additional cardiovascular complaints Respiratory: Respiratory: Reports no additional respiratory complaints Gastrointestinal: Gastrointestinal: Reports no additional gastrointestinal complaints PMFSH Past Medical History Medical History Abnormal uterine bleeding Anxiety Chronic headache Diarrhea History of anxiety History of depression History of ear pain History of ovarian cyst IBS (irritable bowel syndrome) Left hip pain Low body mass index (BMI) Pelvic pain Scoliosis Surgical History Surgical History History of cholecystectomy History of hysterectomy History of removal of ovarian cyst History of tonsillectomy and adenoidectomy Hx of toe surgery Rt great toe. Family History Family History Father Alcoholism Hypertension Mother Heart disease Depression Sibling Depression Heart disease Grandparent Alcoholism Other Arthritis Diabetes mellitus Kidney disorder Social History Social History Social History: Patient is very confident filling out medical forms Smoking status: Current every day smoker (vapes since 2019) Tobacco type: e-cigarettes/vaping Alcohol intake: current Substance use: never Do You Feel Safe in your Home?: Yes Lack of Transportation: No Lack of Food: Never True Current Housing: I Have Housing Concerned About Future Housing: No Difficulty Paying Gas/Electric Bills: No Difficulty Paying for Meds: No Currently Unemployed: No Education: High School Diploma/GED Difficulty w/ Childcare or Family Care: No Living arrangements: with family Additional living arrangements comments: Occupation/Education: occupation 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 HEAD: Normocephalic, atraumatic. ENT: Mucous membranes moist. CHEST: Clear to auscultation. No respiratory distress. HEART: Regular rate and rhythm. Normal peripheral pulses. ABDOMEN: Soft, nontender, nondistended. EXTREMITIES: Normal range of motion. No edema. SKIN: Warm, dry, no rash. NEURO: Alert and oriented x3. PSYCH: Normal mood and affect. Course Course Emergency Course: Feels improved with antiemetics and fluids. Discussed labs. Discharge with oral antibiotic for UTI the patient also has a gastroenteritis. Vital Signs Vital signs: Vital Signs Temperature 97.4 F L 04/01/24 09:02 Pulse Rate 96 04/01/24 09:02 Respiratory Rate 16 04/01/24 09:02 Blood Pressure 107/89 04/01/24 09:02 Pulse Oximetry 99 04/01/24 09:02 Temperature 97.4 F L 04/01/24 09:02 Pulse Rate 121 H 04/01/24 09:20 Respiratory Rate 16 04/01/24 09:02 Blood Pressure 102/80 04/01/24 09:20 Pulse Oximetry 99 04/01/24 09:02 Medical Decision Making Vital Signs Vital Signs: Vital Signs Temperature 97.4 F L 04/01/24 09:02 Pulse Rate 96 04/01/24 09:02 Respiratory Rate 16 04/01/24 09:02 Blood Pressure 107/89 04/01/24 09:02 Pulse Oximetry 99 04/01/24 09:02 Temperature 97.4 F L 04/01/24 09:02 Pulse Rate 121 H 04/01/24 09:20 Respiratory Rate 16 04/01/24 09:02 Blood Pressure 102/80 04/01/24 09:20 Pulse Oximetry 99 04/01/24 09:02 Lab Data 04/01/24 09:11 04/01/24 09:11 Labs: Lab Results 04/01/24 04/01/24 04/01/24 Range/Units 09:11 09:18 09:22 WBC 3.7 L (4.5-10.0) K/mm3 RBC 5.22 (4.2-5.4) M/mm3 Hgb 15.7 H (12.0-15.0) g/dL Hct 47.6 H (37.0-47.0) % MCV 91.2 (80-100) fl MCH 30.1 (26-34) pg MCHC 33.0 (32-36) g/dl RDW 11.9 (11.5-14.5) % Plt Count 165 (150-375) k/mm3 MPV 11.8 H (7.4-10.4) fl Immature Gran % (Auto) 1.3 H (0-0.5) % Neut % (Auto) 69.4 (45.5-73.1) % Lymph % (Auto) 16.1 L (18.3-44.2) % [place] % (Auto) 12.9 H (2.6-8.5) % Eos % (Auto) 0.0 (0-4.4) % Baso % (Auto) 0.3 (0.2-1.2) % Lymph # (Auto) 0.60 L (0.9-3.2) K/mm3 [place] # (Auto) 0.5 (0.1-0.6) K/mm3 Eos # (Auto) 0.0 (0-0.3) K/mm3 Baso # (Auto) 0.0 (0.0-0.1) K/mm3 Abs Immat Gran (auto) 0.05 H (0.00-0.031) K/mm3 Absolute Neuts (auto) 2.6 (1.3-6.7) K/mm3 Absolute Nucleated RBC 0.000 (0.0-0.012) K/mm3 Nucleated RBC % 0.0 (0.0-0.2) % Sodium 138 (137-145) mmol/L Potassium 4.1 (3.4-5.0) mmol/L Chloride 100 (98-107) mmol/L Carbon Dioxide 23 (22-30) mmol/L Anion Gap 15 H (4-12) mmol/L BUN 11 D (7-17) mg/dL Creatinine 0.70 (0.7-1.0) mg/dL Estim Creat Clear Calc 91 ml/min Estimated GFR > 60 (59 - ) Glucose 89 (65-110) mg/dL Calcium 9.5 (8.4-10.2) mg/dL Total Bilirubin 0.9 (0.2-1.3) mg/dL AST 22 (14-36) U/L ALT 19 (6-35) U/L Alkaline Phosphatase 80 (38-126) U/L Total Protein 8.0 (6.3-8.2) g/dL Albumin 4.9 (3.5-5.1) g/dL Lipase 48 (23-300) U/L Urine Color Yellow (Yellow) Urine Appearance Cloudy H (Clear) Urine pH 5.5 (5.0-9.0) Ur Specific [place] 1.029 (1.001-1.035) Urine Protein 1+ H (Negative) mg/dL Urine Glucose (UA) Negative (Negative) mg/dL Urine Ketones 4+ H (Negative) mg/dL Ur Blood (Man) Trace (Negative) Urine Nitrate Negative (Negative) Urine Bilirubin Negative (Negative) Urine Urobilinogen 1.0 (<2.0) mg/dL Add Ur Microanalysis Reviewed Leukocyte Esterase Rfl Negative (Negative) PAIGE/UL Urine RBC 6-10 H (0-2) /hpf Urine WBC 11-20 H (0-3) /hpf Ur Squamous Epith Cells Many H (Few) /hpf Urine Bacteria 4+ H /hpf Urine Casts 3-5 POC Urine HCG, Qual Negative (Negative) Influenza A (RT-PCR) Negative (Negative) Influenza B (RT-PCR) Negative (Negative) RSV (RT-PCR) Negative (Negative) SARS-CoV-2 RNA (RT-PCR) Negative (Negative) Discharge Plan Discharge Clinical Impression: Gastroenteritis, UTI (urinary tract infection) Patient Disposition: Home, Self-Care Condition: Stable Instructions: Antibiotic Form, Urinary Tract Infection in Women (ED), Gastroenteritis (ED) Additional Instructions: Please drink plenty of fluids at home. Return to the emergency department if you develop high fevers, have persistent severe abdominal pain, or have bloody stools or vomit, as these could be signs of a more serious medical emergency. Return to the emergency department if you are unable to keep down liquids because of severe nausea/vomiting. Patient Language: Taiwanese Prescriptions: New ondansetron 4 mg tablet,disintegrating 4 mg PO Q6H PRN (Reason: nausea and vomiting) Qty: 10 0RF cephalexin 500 mg capsule 500 mg PO Q12H Qty: 14 0RF No Action ondansetron 4 mg tablet,disintegrating 4 mg PO Q8H PRN (Reason: nausea and vomiting) Qty: 12 0RF diphenoxylate-atropine [Lomotil] 2.5-0.025 mg tablet 1 tablet PO TID PRN (Reason: diarrhea) Qty: 12 0RF sertraline 25 mg tablet 25 mg PO DAILY Qty: 30 2RF ondansetron 4 mg tablet,disintegrating 4 mg PO Q8H PRN (Reason: nausea and vomiting) Qty: 10 0RF Follow-up/Referrals: Bryanna Lux APRN [Primary Care Provider] - 1 Week
[2024-04-01 13:37] VITALS: BP 132/84; PULSE 78; RESP 16; O2SAT 99
== END 2024-04-01 13:38 | disposition home or self-care (01) ==
PROVIDERS: Emergency Provider Emergency Medicine; PCP Nurse Practitioner Family
DX: K52.9 Noninfective gastroenteritis and colitis, unspecified (principal); N39.0 Urinary tract infection, site not specified; Z20.822 Contact with and (suspected) exposure to COVID-19; K58.9 Irritable bowel syndrome, unspecified; F41.9 Anxiety disorder, unspecified; F32.A Depression, unspecified; F17.290 Nicotine dependence, other tobacco product, uncomplicated; Z79.899 Other long term (current) drug therapy; Z90.710 Acquired absence of both cervix and uterus; Z90.49 Acquired absence of other specified parts of digestive tract
CPT/HCPCS: 36415; 80053; 81001; 81025; 83690; 85025; 87086; 87637; 96361; 96374; 99284; J2405; J7030

== ENCOUNTER 2024-09-14 16:37 | Emergency (ER) | payer OTHER, SELFPAY ==
--- NOTE | ~2024-09-14 | CT_ITS ---
EXAMINATION: CT brain wo con DATE: 09/14/2024 17:07 INDICATION: Recurrent headache TECHNIQUE: Computed tomography (CT) of the head was performed without intravenous contrast. Sagittal and coronal reconstructions were performed. The mA was adjusted according to patient size. Iterative reconstruction technique was employed. The dose-length product was 681.00 mGy-cm. COMPARISON: head CT dated 12/10/2016 FINDINGS: No acute intracranial hemorrhage, acute infarction or abnormal extra axial fluid collection. Ventricl es are normal and symmetric. No mass/mass effect. The orbits, paranasal sinuses and mastoid air cells are normal. IMPRESSION: 1. Normal head CT. Reviewed, dictated and finalized at location A. IMPRESSION: 1. Normal head CT.
--- OUTSIDE RECORDS SUMMARY | 2024-09-14 16:40 | XMS_ITS | Clinical Summary ---
Author Organization [facility] Address [address] [place] [address] Care Team Providers Care Bead Filler Name Role Phone Abram Chairez MD Primary [...] Comments Hepatitis C Virus (HCV) Screening 1993 Human Papillomavirus (HPV) Immunization (1 - 3-dose series) 2008 Pap Smear 2014 Cervical Cancer Screening (CCS) 06/21/2023 HPV/Cotest 06/21/2023 SARS-COV-2 Immunization ( season) 2023 Influenza Immunization (#1) 2024 Respiratory Syncytial Virus (RSV) Immunization (Adult) (1 [...] behaviors. Insurance [employer] on file Care Teams Bead Filler Relationship Specialty Start Date End Date Abram Chairez MD PCP - General Family Medicine 11/04/21
--- OUTSIDE RECORDS SUMMARY | 2024-09-14 16:40 | XMS_ITS | Clinical Summary ---
Author Organization [facility] Address [address] [place] [address] Care Team Providers Care Motorcycle Repair Shop Supervisor Name Role Phone Buddy Stone MD Unavailable [...] exam 07/02/2014 020 Chest pain 12/06/2017 Immunizations Immunization Administration Dates Next Due DT (Generic) 09/28/1998 [...] Date Smoking Tobacco: Every Day Cigarettes 0.3 20.6 Started: 2004 Smokeless Tobacco: Current Tobacco Cessation:Ready [...] Comments Blood Pressure 110/60 01/22/2020 1:03 PM SHIPPING PROCESSOR Pulse 103 01/22/2020 1:03 PM SHIPPING PROCESSOR Temperature 36.5 C (97.7 F) 01/22/2020 1:03 PM SHIPPING PROCESSOR Respiratory Rate 16 01/22/2020 1:03 PM SHIPPING PROCESSOR Oxygen Saturation 98% 01/22/2020 1:03 PM SHIPPING PROCESSOR Inhaled Oxygen Concentration - - Weight 50.8 kg (112 lb) 01/22/2020 1:03 PM SHIPPING PROCESSOR Height 182.9 cm (6') 01/22/2020 1:03 PM SHIPPING PROCESSOR Body Mass Index 15.19 01/22/2020 1:03 PM SHIPPING PROCESSOR Plan of Treatment Health Maintenance Due Date Last Done Comments Pneumococcal Vaccine: Pediatrics (0 to 5 Years) and At-Risk Patients (6 to 49 Years) (1 of 2 - PCV) 2012 HPV Vaccines (1 - 3-dose SCDM series) 2020 Annual Physical 10/11/2020 10/12/2019 COVID-19 Vaccine ( season) 2023 DTaP, Tdap and Td Vaccines (2 - Td or Tdap) 03/15/2025 03/15/2015, 09/28/1998, 04/16/1995, Additional history exists Hepatitis B Vaccines Completed 06/25/1994, 1993, 1993 Hepatitis C Completed 05/04/2018 Meningococcal B Vaccine Aged Out No l [...] VE NON-REACTI VE 05/04/2018 9:47 PM CDT [facility] HEP B CORE IGM NON-REACTI VE NON-REACTI VE 05/04/2018 10:05 PM CDT [facility] HAV IGM NON-REACTI VE NON-REACTI VE 05/04/2018 10:08 PM CDT [facility] HEPATITIS C AB NON-REACTI VE NON-REACTI VE 05/04/2018 10:05 PM CDT [facility] 05/04/2018 11:2 7 AM CDT Tressa Anderson MD LABORATORY Final Result [facility] [address] [place] [address], from Last 3 Months or Most Recently Relevant to Health Maintenance Insurance Care Teams Motorcycle Repair Shop Supervisor Relationship Specialty Start Date End Date Buddy Stone MD [facility] [address] [place], [place] [address] Patricia Tube Fitter CARDIOVASCULAR DISEASE 01/06/17
--- OUTSIDE RECORDS SUMMARY | 2024-09-14 16:40 | XMS_ITS | Referral Summary ---
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
--- OUTSIDE RECORDS SUMMARY | 2024-09-14 16:40 | XMS_ITS | Clinical Summary ---
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 Gender Identity Not on file Sexual Orientation [...] Last Done Comments Hepatitis C Screening 1993 Regular Well Visit/Exam 18-64 06/21/2011 Pneumococcal vaccine <65 (1 of 2 - PCV) 2012 HPV Vaccines (1 - 3-dose SCD M series) 2020 Covid-19 Vaccine (3 - 2023-2 5 season) 2023 12/25/2021, 12/04/2021 Depression Screening 10/30/2023 10/29/2022, 09/11/2022, 09/11/2022, Additional history exists Influenza Vaccine (#1) 2024 DTaP/Tdap/Td Vaccine (7 - Td or Tdap) 03/15/2025 03/15/2015, 09/28/1998, 04/16/1995, Additional history exists Hepatitis B Screening Completed 06/25/1994 , 06/25/1994, 1993, Additional history exists Varicella Vaccines Discontinued Insurance [facility] Care Teams Meat And Seafood Manager Relationship Specialty Start Date End Date Abram Chairez MD [address] [place] [address] PCP - General Family Medicine 08/30/20
[2024-09-14 16:41] VITALS: BP 127/87; PULSE 102; RESP 20; TEMP 36.6; O2SAT 96
--- NOTE | 2024-09-14 16:52 | ED.HA ---
HPI - Headache General Chief Complaint: Headache <Mela Sandoval APRN - Last Filed: 09/14/24 17:01> Stated Complaint: MIGRAINE <Mela Sandoval APRN - Last Filed: 09/14/24 17:01> Time Seen by Provider: 09/14/24 16:50 <Mela Sandoval APRN - Last Filed: 09/14/24 17:01> Focused HPI: Patient is a 29-year-old female who presents to the ER with a 3 day history of a headache. She reports she has taken Tylenol without any relief. Patient endorses nausea and vomiting. She is unsure whether or not she has had any recent fevers but reports ?I have been so hot. Patient reports my primary care doctor does not want to do a CT scan because he thinks my migraine are due to my hormones. She reports she has been so incapacitated she has been able to walk. Patient reports the pain starts at the base of her left neck and radiates up her head. She endorses photophobia. Patient denies any to the as she had a hysterectomy. She denies lower pain, numbness/tingling, abdominal pain, chest pain, or shortness of breath. GENERAL: Ill-appearing, well-nourished, and in acute distress d/t pain. HEAD: Normocephalic, atraumatic. CHEST: Clear to auscultation. ?No respiratory distress. HEART: Regular rate and rhythm.? NEURO: ?Alert and oriented x3. Cranial nerves intact. Patient screened in triage and initial orders placed.? ?Additional care and disposition to be based upon?diagnostic testing and treatment. <Mela Sandoval APRN - Last Filed: 09/14/24 17:01> History of Present Illness HPI Narrative: per HPI <Shireen Gramajo MD - Last Filed: 09/14/24 22:09> Related Data Allergies/Adverse Reactions: Allergies Allergy/AdvReac Type Severity Reaction Status Date / Time azithromycin Allergy Severe N/V; HIVES Verified 04/01/24 09:24 lavender (Lavandula Allergy Severe HIVES Verified 04/01/24 09:24 angustifolia) oxycodone Allergy Severe HIVES Verified 04/01/24 09:24 pumpkin Allergy Severe HIVES Verified 02/15/25 09:24 benzocaine AdvReac Mild VAGINAL Verified 04/01/24 09:24 ITCHING/REDNESS mineral oil AdvReac Mild VAGINAL Verified 04/01/24 09:24 ITCHING/REDNESS resorcinol AdvReac Mild VAGINAL Verified 04/01/24 09:24 REDNESS/ITCHING trazodone AdvReac Unknown GROSS Verified 04/01/24 09:24 <Mela Sandoval APRN - Last Filed: 09/14/24 17:01> Review of Systems Review of Systems: All systems reviewed & are unremarkable except as noted in HPI and below <Shireen Gramajo MD - Last Filed: 09/14/24 22:09> PMFSH Past Medical History Medical History: Medical History Abnormal uterine bleeding Anxiety Chronic headache Diarrhea History of anxiety History of depression History of ear pain History of ovarian cyst IBS (irritable bowel syndrome) Left hip pain Low body mass index (BMI) Pelvic pain Scoliosis <Mela Sandoval APRN - Last Filed: 09/14/24 17:01> Surgical History Surgical History: Surgical History History of cholecystectomy History of hysterectomy History of removal of ovarian cyst History of tonsillectomy and adenoidectomy Hx of toe surgery Rt great toe. <Mela Sandoval APRN - Last Filed: 09/14/24 17:01> Family History Family History: Family History Father Alcoholism Hypertension Mother Heart disease Depression Sibling Depression Heart disease Grandparent Alcoholism Other Arthritis Diabetes mellitus Kidney disorder <Mela Sandoval APRN - Last Filed: 09/14/24 17:01> Social History Social History: Social History Social History: Patient is very confident filling out medical forms Smoking status: Current every day smoker (vapes since 2019) Tobacco type: e-cigarettes/vaping Alcohol intake: current Substance use: never Do You Feel Safe in your Home?: Yes Lack of Transportation: No Lack of Food: Never True Current Housing: I Have Housing Concerned About Future Housing: No Difficulty Paying Gas/Electric Bills: No Difficulty Paying for Meds: No Currently Unemployed: No Education: High School Diploma/GED Difficulty w/ Childcare or Family Care: No Living arrangements: with family Additional living arrangements comments: Occupation/Education: occupation 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 EYES: EOMI, conjunctiva normal ENT: Hearing grossly intact LUNGS: Nonlabored breathing. HEART: [Regular rate and rhythm] ABD: [Soft], [nontender to palpation] EXT: Normal range of motion SKIN: [No rashes or lesions.] NEURO: [Alert and oriented x 3. No gross focal sensory or strength deficits.] Clear speech, normal gait PSYCH: Normal affect <Shireen Gramajo MD - Last Filed: 09/14/24 22:09> Course Vital Signs Vital signs: Vital Signs Temperature 97.8 F 09/14/24 16:41 Pulse Rate 102 H 09/14/24 16:41 Respiratory Rate 20 09/14/24 16:41 Blood Pressure 127/87 09/14/24 16:41 Pulse Oximetry 96 09/14/24 16:41 Temperature 98.0 F 09/14/24 18:06 Pulse Rate 57 L 09/14/24 18:06 Respiratory Rate 18 09/14/24 18:06 Blood Pressure 107/61 09/14/24 18:06 Pulse Oximetry 100 09/14/24 18:06 Oxygen Delivery Room Air 09/14/24 18:06 <Mela Sandoval SAP BASIS ARCHITECT - Last Filed: 09/14/24 17:01> Vital Signs Temperature 97.8 F 09/14/24 16:41 Pulse Rate 102 H 09/14/24 16:41 Respiratory Rate 20 09/14/24 16:41 Blood Pressure 127/87 09/14/24 16:41 Pulse Oximetry 96 09/14/24 16:41 Temperature 98.0 F 09/14/24 18:06 Pulse Rate 57 L 09/14/24 18:06 Respiratory Rate 18 09/14/24 18:06 Blood Pressure 107/61 09/14/24 18:06 Pulse Oximetry 100 09/14/24 18:06 Oxygen Delivery Room Air 09/14/24 18:06 <Shireen Gramajo MD - Last Filed: 09/14/24 22:09> MDM - Headache MDM Narrative Medical decision making narrative: 29F presents to the emergency department for headache. Patient is hemodynamically stable. No focal neurological or cranial nerve deficits on exam. No meningeal signs. The headache was gradual in onset, it is not exertional and does not appear consistent with subarachnoid hemorrhage or intracranial bleeding. No trauma. Patient is given Reglan here. She did unfortunately have a little bit of jitteriness so I did give her small dose of Ativan. On reevaluation, the patient feels significantly better with the headache resolved. No neurological deficits. Patient is comfortable going home for outpatient follow-up with primary care physician and/or neurology and provided with strict return precautions, especially for worsening headaches, neck pain/stiffness, fever or weakness, numbness/tingling or persistent vomiting. <Shireen Gramajo MD - Last Filed: 09/14/24 22:09> Discharge Plan Discharge Clinical Impression: Migraine <Mela Sandoval APRN - Last Filed: 09/14/24 17:01> Patient Disposition: Home <Mela Sandoval APRN - Last Filed: 09/14/24 17:01> Condition: Stable <Mela Sandoval APRN - Last Filed: 09/14/24 17:01> Instructions: Migraine Headache (ED) <Mela Sandoval APRN - Last Filed: 09/14/24 17:01> Additional Instructions: Please follow-up with your primary care doctor, make sure you are eating and drinking and sleeping adequately, you can come back to the hospital for any further issues. <Mela Sandoval APRN - Last Filed: 09/14/24 17:01> Patient Language: Ukrainian <Mela Sandoval APRN - Last Filed: 09/14/24 17:01> Prescriptions: No Action ondansetron 4 mg tablet,disintegrating 4 mg PO Q8H PRN (Reason: nausea and vomiting) Qty: 12 0RF diphenoxylate-atropine [Lomotil] 2.5-0.025 mg tablet 1 tablet PO TID PRN (Reason: diarrhea) Qty: 12 0RF sertraline 25 mg tablet 25 mg PO DAILY Qty: 30 2RF ondansetron 4 mg tablet,disintegrating 4 mg PO Q8H PRN (Reason: nausea and vomiting) Qty: 10 0RF ondansetron 4 mg tablet,disintegrating 4 mg PO Q6H PRN (Reason: nausea and vomiting) Qty: 10 0RF cephalexin 500 mg capsule 500 mg PO Q12H Qty: 14 0RF <Mela Sandoval APRN - Last Filed: 09/14/24 17:01> Follow-up/Referrals: Bryanna Lux APRN [Primary Care Provider] - <Mela Sandoval APRN - Last Filed: 09/14/24 17:01> Stand Alone Forms: Work/School Release IP <Mela Sandoval APRN - Last Filed: 09/14/24 17:01>
[2024-09-14 18:06] VITALS: BP 107/61; PULSE 57; RESP 18; TEMP 36.7; O2SAT 100
[2024-09-14] MEDS: METOCLOPRAMIDE HCL INJ 10 MG/2 ML VIAL IM (18:16)
[2024-09-14] MEDS: LORazepam (*CRX) 1 MG TABLET PO (19:02)
== END 2024-09-14 19:53 | disposition home or self-care (01) ==
PROVIDERS: Emergency Provider Emergency Medicine; PCP Nurse Practitioner Family
DX: G43.909 Migraine, unspecified, not intractable, without status migrainosus (principal); K58.9 Irritable bowel syndrome, unspecified; F41.9 Anxiety disorder, unspecified; F32.A Depression, unspecified; F17.290 Nicotine dependence, other tobacco product, uncomplicated; Z90.49 Acquired absence of other specified parts of digestive tract; Z90.710 Acquired absence of both cervix and uterus; Z79.899 Other long term (current) drug therapy
CPT/HCPCS: 70450; 96372; 99284; A9270; J2765

== ENCOUNTER 2024-11-06 13:19 | Outpatient (CLI) | payer OTHER, SELFPAY ==
--- OUTSIDE RECORDS SUMMARY | 2024-11-06 13:46 | XMS_ITS | Clinical Summary ---
Author Organization [facility] Address [address] [place] [address] Care Team Providers Care Coconut Candy Maker Name Role Phone Abram Chairez MD Primary [...] Virus (HCV) Screening 1993 Pap Smear 2014 Human Papillomavirus (HPV) Immunization (1 - 3-dose SCDM series) 2020 Cervical Cancer Screening (CCS) 06/21/2023 HPV/Cotest 06/21/2023 Influenza Immunization (#1) 2024 SARS-COV-2 Immunization ( season) 2024 Respiratory Syncytial Virus (RSV) Immunization (Adult) [...] symptoms, including flashbacks and avoidance behaviors. Insurance ID [employer] on file Care Teams Coconut Candy Maker Relationship Specialty Start Date End Date Abram Chairez MD PCP - General Family Medicine 11/04/21
== END 2024-11-06 13:20 | disposition home or self-care (01) ==
PROVIDERS: PCP Nurse Practitioner Family; Visit Provider Obstetrics & Gynecology
DX: R10.2 Pelvic and perineal pain (principal)
CPT/HCPCS: 36415; 86850; 86900; 86901

== ENCOUNTER 2024-11-10 00:56 | Day surgery (SDC) | payer OTHER, SELFPAY ==
[2024-10-31 10:19] VITALS: BMI 16.9
--- NOTE | 2024-10-31 10:33 | SUR.PREOP ---
Report to the Outpatient Waiting Room, entrance under the green pavilion located off [facility], at time 0900 on date 11/10/24. Planned Procedure Time: 1100.? Time changes happen often and if your time is changed the preop area will call you the afternoon before. - You and your visitor will be asked to self-screen and do not enter if you have any COVID symptoms. Please call surgeon if you need to reschedule. - A mask is optional within the hospital at this time. Patients may have clear liquids (water, carbonated beverages, clear teas, apple juice) until 3 hours prior to surgery with a maximum of 20 ounces. - No food from midnight until time of surgery and no smoking, or chewing tobacco (or any form of nicotine). No chewing gum, candy or mints. Take only the following medications with a SIP of water on the morning of surgery: N/A DO NOT STOP ANY OF YOUR OTHER PRESCRIPTION MEDICATIONS PRIOR TO SURGERY EXCEPT THE FOLLOWING Hold all vitamins and supplements for 3 days per anesthesiologist. Medications to discontinue per physician NAPROXANDREZ, PT TO MAKE SURE DR GONZALEZ IS OK WITH HER TAKING UP UINTIL THE DAY BEFORE PROCEDURE. Date to take last dose N/A Please no make-up, nail persian, hairspray, perfume, deodorant, or body powder the day of surgery.? No jewelry (including any body piercings) or valuables the day of surgery, leave them at home.? Please take a shower or bath the night before, or the morning of, surgery with an antibacterial soap.? Wear comfortable, loose fitting clothing.? Children are encouraged to wear pajamas. - Jewelry must be removed prior to entering the operating room.? Rings and piercings that are not removed may be cut off. - The hospital will not accept responsibility for valuables.? - Please leave all valuables, including medications, at home the day of surgery. If you are going home after surgery, a licensed tow bar driver must drive you home.? - NO public transportation without another adult if you receive anesthesia. - We recommend that an adult stay with you for 24 hours following discharge. - We also recommend that you do not drive, make important decision, drink alcoholic beverages, or take any drugs that were not prescribed by your health care provider for at least 24 hours after your discharge time. Follow any additional instructions given to you from your surgeon. Telephone instructions given to OTTONIEL CORTEZ and asked if any additional questions and then verbalized understanding. Patient advised to call surgeon office or pre surgery nurse liaison [phone] if any additional questions.
--- NOTE | 2024-11-07 11:59 | P.HP_ITS ---
H&P: HPI History of Present Illness Date/Time: 11/07/24 11:59 Chief Complaint: Pelvic pain/dyspareunia/endometriosis Narrative: female admitted for laparoscopy secondary to a history of endometriosis severe and chronic pelvic pain and acute worsening pelvic pain risks and benefits reviewed including but not exclusive of , aspiration pneumonia, bleeding, transfusion, perforation injury to bowel, bladder, ureters, or other internal organs with need for open laparotomy. She received the ACOG handout laparoscopy. She had all questions answered. She asked to proceed Review of Systems Review of Systems: All systems reviewed & are unremarkable except as noted in HPI and below PMFSH Past Medical History Medical History Diarrhea Left hip pain Pelvic pain History of anxiety History of depression IBS (irritable bowel syndrome) History of ear pain Chronic headache Low body mass index (BMI) Abnormal uterine bleeding History of ovarian cyst Scoliosis Anxiety Surgical History Surgical History Hx of toe surgery Rt great toe. History of removal of ovarian cyst History of tonsillectomy and adenoidectomy History of cholecystectomy History of hysterectomy Family History Family History Father Alcoholism Hypertension Mother Heart disease Depression Sibling Depression Heart disease Grandparent Alcoholism Other Arthritis Diabetes mellitus Kidney disorder Social History Social History Social History: Patient is very confident filling out medical forms Smoking status: Current every day smoker (vapes since 2019) Tobacco type: e-cigarettes/vaping Additional smoking assessment comments: 8 years vaping nicotine SINCE 2017 Alcohol intake: current Substance use: never Do You Feel Safe in your Home?: Yes Lack of Transportation: No Lack of Food: Never True Current Housing: I Have Housing Concerned About Future Housing: No Difficulty Paying Gas/Electric Bills: No Difficulty Paying for Meds: No Currently Unemployed: No Education: High School Diploma/GED Difficulty w/ Childcare or Family Care: No Living arrangements: with family Additional living arrangements comments: Occupation/Education: occupation 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 Gender identity (if verbalized by the patient): Female Spiritual care concerns: No Agree to blood products: Yes Meds Home Medications and Allergies Home Medications ?Medication ?Instructions ?Recorded ?Confirmed ?Type acetaminophen 500 mg tablet 500 mg PO DAILY 10/31/24 0 10/31/24 History (Tylenol Extra Strength) naproxen 500 mg tablet 500 mg PO DAILY PRN MIGRAINS 10/31/24 10/31/24 History Allergies Allergy/AdvReac Type Severity Reaction Status Date / Time azithromycin Allergy Severe N/V; HIVES Verified 10/31/24 10:22 lavender (Lavandula Allergy Severe HIVES Verified 10/31/24 10:22 angustifolia) oxycodone Allergy Severe HIVES Verified 10/31/24 10:22 pumpkin Allergy Severe HIVES Verified 10/31/24 10:22 benzocaine AdvReac Mild VAGINAL Verified 10/31/24 10:22 ITCHING/REDNESS mineral oil AdvReac Mild VAGINAL Verified 10/31/24 10:22 ITCHING/REDNESS resorcinol AdvReac Mild VAGINAL Verified 10/31/24 10:22 REDNESS/ITCHING trazodone AdvReac Unknown GROSS Verified 10/31/24 10:22 Exam Const: General: cooperative, healthy appearing, comfortable and well groomed Nutritional Appearance: average body habitus Orientation/consciousness: oriented to person, oriented to place and oriented to time Resp: Effort & Inspection: normal respiratory effort Cardio: Rate: regular rate Rhythm: regular rhythm Heart sounds: S1 normal heart sound present and S2 normal heart sound present GI: Inspection: normal to inspection Auscultation: normal bowel sounds : External Female Exam: normal external appearance Speculum Exam - Vagina: normal appearance of the vagina Speculum Exam - Cervix: Cervix absent Bimanual exam- vagina & uterus: uterus absent Bimanual Exam- Adnexa, other: tender bilaterally Assessment and Plan Assessment and plan (1) Pelvic pain: Code(s): R10.2 - Pelvic and perineal pain Status: Acute Plan Proceed with diagnostic laparoscopy
[2024-11-10] VITALS (12 sets, daily range): BP systolic 94–121; BP diastolic 55–75; PULSE 56–102; RESP 15–24; TEMP 36.5–36.8; O2SAT 98–100
--- OUTSIDE RECORDS SUMMARY | 2024-11-10 00:59 | XMS_ITS | Clinical Summary ---
Author Organization [facility] Address [address] [place] [address] Care Team Providers Care Field Evidence Technician Name Role Phone Buddy Stone MD Unavailable [...] Date Smoking Tobacco: Every Day Cigarettes 0.3 20.7 Started: 2004 Smokeless Tobacco: Current Tobacco Cessation:Ready [...] Comments Blood Pressure 110/60 01/22/2020 1:03 PM WHITE KID BUFFER Pulse 103 01/22/2020 1:03 PM WHITE KID BUFFER Temperature 36.5 C (97.7 F) 01/22/2020 1:03 PM WHITE KID BUFFER Respiratory Rate 16 01/22/2020 1:03 PM WHITE KID BUFFER Oxygen Saturation 98% 01/22/2020 1:03 PM WHITE KID BUFFER Inhaled Oxygen Concentration - - Weight 50.8 kg (112 lb) 01/22/2020 1:03 PM WHITE KID BUFFER Height 182.9 cm (6') 01/22/2020 1:03 PM WHITE KID BUFFER Body Mass Index 15.19 01/22/2020 1:03 PM WHITE KID BUFFER Plan of Treatment Health Maintenance Due Date Last Done Comments Pneumococcal Vaccine: Pediatrics (0 to 5 Years) and At-Risk Patients (6 to 49 Years) (1 of 2 - PCV) 2012 HPV Vaccines (1 - 3-dose SCDM series) 2020 Annual Physical 10/11/2020 10/12/2019 COVID-19 Vaccine ( season) 2024 DTaP, Tdap and Td Vaccines (2 - [...] VE NON-REACTI VE 05/04/2018 9:47 PM CDT [facility] HEP B CORE IGM NON-REACTI VE NON-REACTI VE 05/04/2018 10:05 PM CDT [facility] HAV IGM NON-REACTI VE NON-REACTI VE 05/04/2018 10:08 PM CDT [facility] HEPATITIS C AB NON-REACTI VE NON-REACTI VE 05/04/2018 10:05 PM CDT [facility] 05/04/2018 11:2 7 AM CDT Tressa Anderson MD LABORATORY Final Result [facility] [address] [place] [address], from Last 3 Months or Most Recently Relevant to Health Maintenance Insurance Care Teams Field Evidence Technician Relationship Specialty Start Date End Date Buddy Sotne MD [facility] [address] [place], [place] [id number] Patricia Tanning Wheel Filler CARDIOVASCULAR DISEASE 01/06/17
--- OUTSIDE RECORDS SUMMARY | 2024-11-10 00:59 | XMS_ITS | Clinical Summary ---
Author Organization [facility] Address [address] [place] [address] Care Team Providers Care Educational Aid Name Role Phone Abram Chairez MD Primary [...] ID [employer] on file Care Teams Educational Aid Relationship Specialty Start Date End Date Abram Chairez MD PCP - General Family Medicine 11/04/21
--- OUTSIDE RECORDS SUMMARY | 2024-11-10 00:59 | XMS_ITS | Clinical Summary ---
Author Organization [address] Address [address] [place] [id number] Care Team Providers Care Quantitative Manager Name Role Phone Abram Chairez MD [...] on file Legal Sex Female 12:40 AM FIELD SERVICES DIRECTOR Gender Identity Not on file Sexual Orientation [...] (1 - 3-dose SCD M series) 2020 Depression Screening 10/30/2023 10/29/2022, 09/11/2022, 09/11/2022, Additional history exists Covid-19 Vaccine (3 - 2024-2 6 season) 2024 12/25/2021, 12/04/2021 Influenza Vaccine (#1) 2024 DTaP/Tdap/Td Vaccine (7 - Td or Tdap) 03/15/2025 03/15/2015, 09/28/1998, 04/16/1995, Additional history exists Hepatitis B Screening Completed 06/25/1994 , 06/25/1994, 1993, Additional history exists Varicella Vaccines Discontinued Insurance [facility] Care Teams Quantitative Manager Relationship Specialty Start Date End Date Abram Chairez MD [address] [place] [address] PCP - General Family Medicine 08/30/20
--- NOTE | 2024-11-10 07:01 | WPDHPUPDATE1 ---
History and Physical Update Update Date/Time: 11/10/24 07:01 History and Physical has been reviewed, including an updated exam of the patient. There are NO changes in the patient's condition. Risks, benefits, and alternatives have been discussed and questions answered. Patient agrees to proceed with procedure.
--- NOTE | 2024-11-10 09:23 | P.PNAN_ITS ---
Anes - Initial Pre Proc Eval Procedure: Operation Date: 11/10/24 11:00 Proposed Procedures p Diagnostic Laparoscopy with Cautery of Endometriosis - Arnaldo Awad MD Date/Time: 11/10/24 09:23 Surgeon: Arnaldo Awad MD Pre Op Diagnosis: Endometriosis, pelvic pain,dyspareunia Patient Data Age: 29 Gender: F Height: 1.83 m Weight: 56.7 kg Last Vital Signs Temp 36.5 C 11/10/24 08:55 Pulse 102 H 11/10/24 08:55 Resp 16 11/10/24 08:55 BP 107/74 11/10/24 08:55 Pulse Ox 98 11/10/24 08:55 O2 Del Method Room Air 11/10/24 08:55 Allergies Allergy/AdvReac Type Severity Reaction Status Date / Time azithromycin Allergy Severe N/V; HIVES Verified 10/31/24 10:22 lavender (Lavandula Allergy Severe HIVES Verified 10/31/24 10:22 angustifolia) oxycodone Allergy Severe HIVES Verified 10/31/24 10:22 pumpkin Allergy Severe HIVES Verified 10/31/24 10:22 benzocaine AdvReac Mild VAGINAL Verified 10/31/24 10:22 ITCHING/REDNESS mineral oil AdvReac Mild VAGINAL Verified 10/31/24 10:22 ITCHING/REDNESS resorcinol AdvReac Mild VAGINAL Verified 10/31/24 10:22 REDNESS/ITCHING trazodone AdvReac Unknown GROSS Verified 10/31/24 10:22 Home Medications ?Medication ?Instructions ?Recorded ?Confirmed ?Type acetaminophen 500 mg tablet 500 mg PO DAILY 10/31/24 0 10/31/24 History (Tylenol Extra Strength) naproxen 500 mg tablet 500 mg PO DAILY PRN MIGRAINS 10/31/24 10/31/24 History Patient hx anesthesia problems: none Family hx anesthesia problems: none Results Review: All pre-operative results and documents have been reviewed as part of the pre- operative evaluation. [facility] Past Medical History Medical History Diarrhea Left hip pain Pelvic pain History of anxiety History of depression IBS (irritable bowel syndrome) History of ear pain Chronic headache Low body mass index (BMI) Abnormal uterine bleeding History of ovarian cyst Scoliosis Anxiety Surgical History Surgical History Hx of toe surgery Rt great toe. History of removal of ovarian cyst History of tonsillectomy and adenoidectomy History of cholecystectomy History of hysterectomy Family History Family History Father Alcoholism Hypertension Mother Heart disease Depression Sibling Depression Heart disease Grandparent Alcoholism Other Arthritis Diabetes mellitus Kidney disorder Social History Social History Social History: Patient is very confident filling out medical forms Smoking status: Current every day smoker (vapes since 2019) Tobacco type: e-cigarettes/vaping Alcohol intake: current Substance use: never Do You Feel Safe in your Home?: Yes Lack of Transportation: No Lack of Food: Never True Current Housing: I Have Housing Concerned About Future Housing: No Difficulty Paying Gas/Electric Bills: No Difficulty Paying for Meds: No Currently Unemployed: No Education: High School Diploma/GED Difficulty w/ Childcare or Family Care: No Living arrangements: with family Additional living arrangements comments: Occupation/Education: occupation 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 Informed Consent: The patient's anesthetic plan and its attendant risks and benefits were discussed with the patient/family/POA. Questions were solicited and answers provided to the satisfaction of the patient/family/POA.
[2024-11-10] MEDS: ACETAMINOPHEN 500 MG TABLET 1000 MG PO (09:30)
[2024-11-10] MEDS: LACTATED RINGERS 1,000 ML 30 ML IV CONT ×2 (09:35→11:44)
[2024-11-10] MEDS: KETOROLAC 15 MG/ML VIAL (*BKC) IV PUSH (09:40)
--- NOTE | 2024-11-10 10:01 | WPDHPUPDATE1 ---
History and Physical Update Update Date/Time: 11/10/24 10:01 History and Physical has been reviewed, including an updated exam of the patient. There are NO changes in the patient's condition. Risks, benefits, and alternatives have been discussed and questions answered. Patient agrees to proceed with procedure. Add cauterization of endometriosis to plan
[2024-11-10] MEDS: SCOPOLAMINE 1 MG PATCH 1 PATCH TRANSDERM (10:13)
--- NOTE | 2024-11-10 10:48 | S_PTH ---
PATIENT: Angeli Cunningham LOC: [facility] U#:[id number] AGE/SX: 29/F ROOM: RE11/10/[address]: Arnaldo Awad MD : 1995 BED: DIS: 11/10/2024 SPEC #: [id number] RECD: 11/10/24 13:00 STATUS: ROD REAlexander #: [id number] AL: 11/10/24 10:[address]: Arnaldo Fitzgerald DEPT: [facility] Surgical RECD BY: Nadya Sibley ENTERED: 11/10/24 13:00 SP TYPE: Surgical OTHR DR: Bryanna Lux APRN Tissues: A - Fallopian Tube Single Procedures: Gross and Microscopic Level 2 Hematoxylin and Eosin Stain
--- NOTE | 2024-11-10 10:53 | W.PM.PROC2 ---
Procedure Note - Detailed Date of Procedure 11/10/24 Pre-op Diagnosis Endometriosis, pelvic pain,dyspareunia Post-op Diagnosis Other (Pelvic pain right middle salpinx) Procedure Performed Laparoscopy with right salpingectomy Surgeon Arnaldo Awad MD Anesthesia General Indications This is a 29-year-old female status post hysterectomy with history of endometriosis and pelvic pain Findings Uterus was surgically absent. A hematosalpinx was seen on the right with the what appeared to be endometriosis. Normal-appearing right tube and right ovary left ovary and tube Description of Procedure Patient was prepped and draped in the normal sterile fashion placed in the dorsal lithotomy position. Under excellent general trach anesthesia a sponge stick placed in vagina and the bladder drained clear urine the weighted speculum was removed the gloves were changed. A an infraumbilical incision made and a 5mm trocar advanced in the abdomen. Downside visualized no injury seen. Patient placed in Trendelenburg and a suprapubic incision made. The 5mm trocar advanced under direct visualization assuring no injury. The above findings were seen. The vaginal cuff appeared clear no evidence of endometriosis was seen there were some questionable endometrial implants on the right tube the tube was then sharply dissected away with 5mm LigaSure through the right lower quadrant incision blood grasping with the left this was removed and irrigation undertaken no other abnormalities were seen irrigation was undertaken and cleared the trocar site removed the and the after gas removed from the abdomen the incisions closed with 4-0 Monocryl and glue patient was awakened went worse growth satisfactory condition. All sponge, needle, instrument counts were correct. There were no immediate complications Estimated Blood Loss 5 Drains No Packing No Pathology Yes Complications No immediate complications Condition Stable Disposition PACU
[2024-11-10] MEDS: fentaNYL CITRATE INJ (*CRX) 100 MCG/2 ML VIAL 25 MCG IV PUSH ×8 (11:15→12:31)
[2024-11-10] MEDS: oxyCODONE HCL (*CRX) 5 MG TAB IR PO (12:52)
== END 2024-11-10 13:42 | disposition home or self-care (01) ==
PROVIDERS: PCP Nurse Practitioner Family; Visit Provider Obstetrics & Gynecology
PROC: (CPT 49320; principal; 2024-11-10 11:00)
DX: N83.8 Other noninflammatory disorders of ovary, fallopian tube and broad ligament (principal); N80.201 Endometriosis of right fallopian tube, unspecified depth; G89.29 Other chronic pain; K58.9 Irritable bowel syndrome, unspecified; F41.9 Anxiety disorder, unspecified; F32.A Depression, unspecified; R51.9 Headache, unspecified; M41.9 Scoliosis, unspecified; F17.290 Nicotine dependence, other tobacco product, uncomplicated; Z79.1 Long term (current) use of non-steroidal anti-inflammatories (NSAID); Z98.890 Other specified postprocedural states; Z90.49 Acquired absence of other specified parts of digestive tract; Z82.49 Family history of ischemic heart disease and other diseases of the circulatory system
CPT/HCPCS: 58661; 88302; A9270; J1100; J1885; J2003; J2250; J2405; J2704; J3010; J7120

== ENCOUNTER 2024-12-06 16:45 | Emergency (ER) | payer OTHER, SELFPAY ==
[2024-12-06 17:05] VITALS: BP 115/80; PULSE 87; RESP 16; TEMP 36.9; O2SAT 100
[2024-12-06 17:20] LABS: EDCOVIDSCREEN Negative (Negative); EDINFLUASCREEN Negative (Negative); EDINFLUBSCREEN Negative (Negative); EDSTREPNEGPOS1 Negative (Negative)
--- NOTE | 2024-12-06 17:42 | ED.URI ---
HPI - URI/Sore Throat General Chief Complaint: Upper Respiratory Infection Stated Complaint: Fever/Vomiting Time Seen by Provider: 12/06/24 17:30 Source: patient and RN notes reviewed Mode of arrival: ambulatory Limitations: no limitations History of Present Illness HPI Narrative: 29-year-old female presents to the [facility] complaining of upper respiratory symptoms since this morning. Patient reports having congestion, sore throat, body aches, chills, nausea, vomiting, loose stools. Patient denies any chest pain, fevers, difficulty breathing, abdominal pain, diarrhea, any other upper respiratory symptoms, or any other symptoms. Patient last vomited this morning, she has been able to keep things down since. Related Data Home Medications ?Medication ?Instructions ?Recorded ?Confirmed ?Last Taken ?Type acetaminophen 500 mg tablet 500 mg PO DAILY 10/31/24 10/31/24 10/31/24 History (Tylenol Extra Strength) naproxen 500 mg tablet 500 mg PO DAILY PRN MIGRAINS 10/31/24 10/31/24 10/31/24 History Allergies Allergy/AdvReac Type Severity Reaction Status Date / Time azithromycin Allergy Severe N/V; HIVES Verified 12/06/24 17:01 lavender (Lavandula Allergy Severe HIVES Verified 12/06/24 17:01 angustifolia) pumpkin Allergy Severe HIVES Verified 12/06/24 17:01 oxycodone AdvReac Severe Nausea Verified 12/06/24 17:01 benzocaine AdvReac Mild VAGINAL Verified 12/06/24 17:01 ITCHING/REDNESS mineral oil AdvReac Mild VAGINAL Verified 12/06/24 17:01 ITCHING/REDNESS resorcinol AdvReac Mild VAGINAL Verified 12/06/24 17:01 REDNESS/ITCHING trazodone AdvReac Unknown GROSS Verified 12/06/24 17:01 Review of Systems Review of Systems: CONSTITUTIONAL: Denies fever, or sweats. Positive body aches and chills. EYES: Denies visual changes, redness, or discharge. ENT: Denies rhinorrhea, or otalgia. Positive for sore throat congestion. CARDIOVASCULAR: Denies chest pain, palpitations, or edema. RESPIRATORY: Denies cough or dyspnea. GASTROINTESTINAL: Denies abdominal pain, or diarrhea. Positive for nausea and vomiting. GENITOURINARY: Denies dysuria or hematuria. SKIN: Denies rash or itching. MUSCULOSKELETAL: Denies back pain, joint pain, or myalgia. NEUROLOGIC: Denies headache, numbness, or weakness. PSYCHIATRIC: Denies anxiety or depression. All other systems reviewed are negative, except as documented in HPI. [facility] Past Medical History Medical History Diarrhea Left hip pain Pelvic pain History of anxiety History of depression IBS (irritable bowel syndrome) History of ear pain Chronic headache Low body mass index (BMI) Abnormal uterine bleeding History of ovarian cyst Scoliosis Anxiety Surgical History Surgical History Hx of toe surgery Rt great toe. History of removal of ovarian cyst History of tonsillectomy and adenoidectomy History of cholecystectomy History of hysterectomy Family History Family History Father Alcoholism Hypertension Mother Heart disease Depression Sibling Depression Heart disease Grandparent Alcoholism Other Arthritis Diabetes mellitus Kidney disorder Social History Social History Social History: Patient is very confident filling out medical forms Smoking status: Current every day smoker (vapes since 2019) Tobacco type: e-cigarettes/vaping Additional smoking assessment comments: 8 years vaping nicotine SINCE 2017 Alcohol intake: current Substance use: never Do You Feel Safe in your Home?: Yes Lack of Transportation: No Lack of Food: Never True Current Housing: I Have Housing Concerned About Future Housing: No Difficulty Paying Gas/Electric Bills: No Difficulty Paying for Meds: No Currently Unemployed: No Education: High School Diploma/GED Difficulty w/ Childcare or Family Care: No Living arrangements: with family Additional living arrangements comments: Occupation/Education: occupation 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 There is no relevant family history pertinent to the patient complaint. Exam Narrative: GENERAL: This is a well-nourished, well-developed adult, in no apparent distress. They are non ill-appearing, nontoxic appearing. HEAD: normocephalic, atraumatic. EYES: Sclera clear/white. Conjunctiva normal. Vision is grossly intact. Extraocular movements intact EARS: External ears normal, auditory canals clear and without drainage, TMs normal without perforation. Hearing grossly intact. NOSE: External nose normal with no obvious nasal discharge, nasal turbinates erythematous. No rhinorrhea. THROAT: Mucous membranes moist, posterior pharynx erythematous. Uvula midline. Postnasal drip present. NECK: Neck supple, non-tender without lymphadenopathy, masses or thyromegaly. CARDIOVASCULAR: Regular rate and rhythm without murmurs, gallops, or rubs. RESPIRATORY: Clear to auscultation. Breath sounds equal bilaterally. No wheezes, rales, or rhonchi. GASTROINTESTINAL: Abdomen soft, non-tender, nondistended. Bowel sounds are active. No hepato-splenomegaly, or palpable masses. No guarding or rigidity. No rebound tenderness. SKIN: warm, Dry, intact with no suspicious lesions or rash, good texture and turgor. NEURO: awake, alert, and oriented to person, place and time. There were no obvious focal neurologic abnormalities. EXTREMITIES: No joint tenderness, effusion, or edema noted. BACK: Nontender without deformity. No CVA tenderness. Course Course Emergency Course: Portions of this record may have been created with voice recognition software Level of Care: Express Care Visit Vital Signs Vital signs: Vital Signs Temperature 98.5 F 12/06/24 17:05 Pulse Rate 87 12/06/24 17:05 Respiratory Rate 16 12/06/24 17:05 Blood Pressure 115/80 12/06/24 17:05 Pulse Oximetry 100 12/06/24 17:05 Oxygen Delivery Room Air 12/06/24 17:05 Temperature 98.5 F 12/06/24 17:05 Pulse Rate 87 12/06/24 17:05 Respiratory Rate 16 12/06/24 17:05 Blood Pressure 115/80 12/06/24 17:05 Pulse Oximetry 100 12/06/24 17:05 Oxygen Delivery Room Air 12/06/24 17:05 Reviewed MDM - URI/Sore Throat MDM Narrative Medical decision making narrative: No peritoneal findings, no abdominal tenderness. Patient in no apparent distress, nontoxic appearing. Vital signs hemodynamically stable. Rapid COVID, flu, strep were negative. A throat culture is pending. Is likely viral in etiology. Patient has been able to keep down since she has vomited. Will send her with a prescription of Zofran. Discussed physical exam findings. Advised supportive measures and signs/symptoms to go to the ER. Pt is appropriate for outpt treatment and f/u. Differential Diagnosis Differential diagnosis: Likely upper respiratory infection, sinusitis, viral infection, pharyngitis and other (Gastroenteritis) Lab Data Labs: Lab Results 12/06/24 Range/Units 16:59 POC Influenza A Ag Negative (Negative) POC Influenza B Ag Negative (Negative) POC SARS CoV-2 Ag Negative (Negative) POC Grp A Strep Screen Negative (Negative) Critical Care Time Critical Care Time Critical Care Time: No Discharge Plan Discharge Clinical Impression: Acute viral syndrome Patient Disposition: Home Condition: Stable Instructions: Antibiotic Form, Viral Syndrome (ED) Additional Instructions: Viral illness may last between 5-10 days; antibiotics do not cure viral illness and are NOT recommended at this time. Tylenol or ibuprofen as needed for pain. Follow instructions on the bottle. Take Zofran as needed for nausea and vomiting. Drink plenty of fluids, supplement with Pedialyte or Gatorade for electrolytes. Also, recommend symptomatic treatment includes: rest, fluids, and increase humidity of the air at home. Please schedule a follow-up visit with your personal physician for further evaluation and treatment within 3-5days. He developed abdominal pain, worsening symptoms, chest pains, breathing problems, control nausea and vomiting on concerns of dehydration, worsening fevers, or any serious concerns please go to the ER immediately. Patient Language: Wallisian Prescriptions: New ondansetron 4 mg tablet,disintegrating 4 mg PO Q8H PRN (Reason: nausea and vomiting) Qty: 12 0RF No Action acetaminophen [Tylenol Extra Strength] 500 mg tablet 500 mg PO DAILY naproxen 500 mg tablet 500 mg PO DAILY PRN (Reason: MIGRAINS) oxycodone-acetaminophen [Endocet] 5-325 mg tablet 1 tablet PO Q4H PRN (Reason: pain) Qty: 14 0RF Follow-up/Referrals: Bryanna Lux APRN [Primary Care Provider, Family Practice] Stand Alone Forms: Work/School Release IP Time of Disposition: 17:32
== END 2024-12-06 17:35 | disposition home or self-care (01) ==
PROVIDERS: PCP Nurse Practitioner Family
DX: B34.9 Viral infection, unspecified (principal); Z20.822 Contact with and (suspected) exposure to COVID-19; F17.290 Nicotine dependence, other tobacco product, uncomplicated
CPT/HCPCS: 87081; 87426; 87804; 87880; 99213; G0463